=== PATIENT | male | born 1940 | race Caucasian/White ===

== ENCOUNTER → 2016-11-23 | Day surgery (SDC) | payer OTHER ==
[2016-11-12 09:30] VITALS: BMI 26.0
--- NOTE | 2016-11-12 10:08 | PAT Medication Instructions ---
Service Date Nov 12, 2016. Current Home Medication List Fexofenadine Hcl (Di), 180 MG PO DAILY PRN for Allergies Finasteride (Proscar), 5 MG PO QPM Tamsulosin Hcl (Flomax), 0.4 MG PO QPM Medication Instructions For Your Scheduled Surgery - Hold the following medications the morning of surgery: Fexofenadine Hcl (Di), 180 MG PO DAILY PRN for Allergies - Take the following medications as scheduled the night before surgery: Finasteride (Proscar), 5 MG PO QPM Tamsulosin Hcl (Flomax), 0.4 MG PO QPM Nothing to eat or drink after midnight If you have any questions please call us at [phone] or [phone] or [phone]
[~2016-11-23] VITALS: Ht 172.7 cm; Wt 79.8 kg
[~2016-11-23] MED LIST: ATROPINE SULFATE 0.1 MG/ML 5ML SYR IV PRN; BUPIVACAINE 0.5 % 5 MG/1 ML MPF 30ML VIAL ONE; CEFAZOLIN 2000 MG/60 ML D5W IV SCH; DEXAMETHASONE SOD INJ 4 MG/ML VIAL ONE; EpHEDrine SULFATE INJ 50 MG/ML AMP IV PRN; EpHEDrine SULFATE INJ 50 MG/ML AMP ONE; FENTANYL CITRATE INJ 50 MCG/1 ML 2 ML VIAL IV PRN; FENTANYL CITRATE INJ 50 MCG/1 ML 2 ML VIAL ONE; FEXO1TAB46 PO; FINA5TAB4 PO; GLYCOPYRROLATE INJ 0.2 MG/ML VIAL ONE; LACTATED RINGER'S 1000ML 1,000 ML IV SCH; LIDOCAINE HCL 1% 20 ML VIAL ONE; LIDOCAINE HCL 2% 2 ML VIAL (20MG/ML) ONE; MIDAZOLAM HCL 1 MG/ML 2ML VIAL ONE; MoRPHine SULFATE 4 MG/ML 1 ML CARP\\VIAL IV PRN; NEOSTIGMINE METHYLSULFATE 5 MG/5 ML SYR ONE; ONDANSETRON INJ 2 MG/ML 2 ML VIAL IV PRN; ONDANSETRON INJ 2 MG/ML 2 ML VIAL ONE; OXYCODONE/ACETAMINOPHEN 5-325 TAB PO PRN; PHENYLEPHRINE HCL INJ 10 MG/ML VIAL ONE; PROPOFOL IV EMULSION 10 MG/ML 20 ML VIAL IV ONE; ROCURONIUM BROMIDE 10 MG/ML 5 ML VIAL ONE; SODIUM CHLORIDE 0.9% 1000ML 1,000 ML IV SCH; SUCCINYLCHOLINE CHLORIDE 20 MG/ML 10 ML VIAL IV ONE; TAMS0.4C38 PO
[2016-11-23 09:27] VITALS: BP 132/78; PULSE 66; TEMP 36.5; O2SAT 96; Ht 172.7 cm; Wt 79.8 kg
--- NOTE | 2016-11-23 12:23 | History & Physical Bridge Note ---
H&P Re-Evaluation Bridge Note: I have examined the patient, reviewed the History & Physical and in the interval since the performance of the History & Physical I have noted the following changes of clinical significance: No changes noted
--- NOTE | 2016-11-23 13:49 | [facility] Post Operative Brief Note ---
Immediate Operative Summary Operative Date Nov 23, 2016. Pre-Operative Diagnosis Left Recurrent Inguinal Hernia Post-Operative Diagnosis Left Recurrent Inguinal Hernia Procedure(s) Performed Left Recurrent Inguinal Hernia Repair Surgeon Dr. Roger Hudson Instructional Design Technologist Surgeon(s) Karen Montelongo PA-C Estimated Blood Loss 5cc Findings See dictation Specimens none per surgeon Dr. Roger Hudson Drains None Anesthesia General Complication(s) None Disposition Recovery Room / PACU
--- NOTE | 2016-11-23 13:59 | Discharge Instructions ---
Discharge Instructions Admission Reason for Admission: Recurrent Left Inguinal Hernia Discharge Discharge Diagnosis / Problem: Same Discharge Goals Goal(s): Decrease discomfort Activity Recommendations Activity Limitations: per Instructions/Follow-up section Lifting Limitations: no more than 10 pounds Shower/Bathe: tomorrow (Shower only) . Instructions / Follow-Up Instructions / Follow-Up ACTIVITY RECOMMENDATIONS: * Walk as much as possible. * No heavy lifting (>10 lbs.) for 2 weeks. SPECIAL CARE INSTRUCTIONS: * Ice to hernia repair site on and off until bedtime tonight. * May shower in 24 hours. Let water run over area and pat dry. * Leave steri strips on for one week. * Call the surgeon's office with any questions or concerns - (ex. temperature higher than 101 degrees F, excessive bleeding or pain). MEDICATIONS: Resume previous medications unless instructed otherwise by your surgeon. * Ibuprofen 600 mg every 6 hours with food * Percocet 1 every 4 hours, as needed for pain FOLLOW UP VISIT: If not already scheduled, please call the office to schedule a two week follow- up appointment. Office number Current Hospital Diet Patient's current hospital diet: Discharge Diet Recommended Diet: Regular Diet Procedures Procedures Performed: Left Recurrent Inguinal Hernia Repair Pending Studies Studies pending at discharge: no Medical Emergencies . Who to Call and When: Medical Emergencies: If at any time you feel your situation is an emergency, please call 911 immediately. . Non-Emergent Contact Non-Emergency issues call your: Primary Care Provider, Surgeon Call Non-Emergent contact if: your pain is worsening, wound has increased redness, wound has increased pain . "Provider Documentation" section prepared by Roger Hudson. VTE Core Measure Inpt VTE Proph given/why not?: Treatment not indicated
[2016-11-23 14:45] VITALS: BP 158/76; PULSE 61; TEMP 36.6; O2SAT 92
--- NOTE | 2016-11-23 15:01 | Anesthesiology Progress Note ---
Anesthesia Post Op Note Date & Time Nov 23, 2016 at 15:02 Vital Signs Pain Intensity: 0 Vital Signs Past 12 Hours Date Time Temp Pulse Resp B/P Pulse Ox O2 Delivery O2 Flow Rate FiO2 11/23/16 14:45 36.6 61 18 158/76 92 Room Air 11/23/16 14:35 36.3 64 18 148/89 94 Room Air 10 11/23/16 14:30 64 16 11/23/16 14:30 63 16 94 11/23/16 14:28 146/91 11/23/16 14:25 67 18 11/23/16 14:25 69 18 93 11/23/16 14:24 62 12 11/23/16 14:24 63 12 96 11/23/16 14:23 150/86 11/23/16 14:19 57 12 99 11/23/16 14:19 56 12 11/23/16 14:18 148/86 11/23/16 14:14 60 14 11/23/16 14:14 59 14 98 11/23/16 14:13 141/89 11/23/16 14:09 65 13 11/23/16 14:09 64 13 100 11/23/16 14:08 140/89 11/23/16 14:04 70 18 11/23/16 14:04 69 18 99 11/23/16 14:04 36.0 75 13 119/92 99 Mask 10 11/23/16 09:27 36.5 66 18 132/78 96 Room Air Notes Mental Status: alert / awake / arousable, participated in evaluation Pt Amnestic to Procedure: Yes Nausea / Vomiting: adequately controlled Pain: adequately controlled Airway Patency, RR, SpO2: stable & adequate BP & HR: stable & adequate Hydration State: stable & adequate Anesthetic Complications: no major complications apparent
[2016-11-23 15:15] VITALS: BP 143/79; PULSE 62; TEMP 36.6; O2SAT 96
[2016-11-23 15:30] VITALS: BP 147/75; PULSE 63; TEMP 36.2; O2SAT 95
--- NOTE | 2016-11-24 01:04 | OPERATIVE REPORT ---
DATE OF OPERATION: 11/23/2016 PREOPERATIVE DIAGNOSIS: Recurrent left inguinal hernia. POSTOPERATIVE DIAGNOSIS: Recurrent left direct inguinal hernia. PROCEDURE: Repair of recurrent left direct inguinal hernia with mesh. SURGEON: Dr. Hudson. MICROGRAPHICS SERVICES SUPERVISOR: Sonia Montelongo PA-C. FINDINGS: The patient had had a previous inguinal hernia repair on 2 occasions on the left. There was not a lot of scar tissue in the canal, however. There was some adherence of the subcutaneous fat to the anterior surface of the external oblique fascia. The hernia was a direct hernia. There was a lipoma of the cord that was removed, but there was no indirect component. The direct hernia involved the entire floor of the canal. TECHNIQUE: The patient was given a general anesthetic, and the area was prepped and draped in the usual sterile fashion. Incision was made through the scar from the previous inguinal hernia incision. It was carried down through the subcutaneous tissue. Dissection was performed carefully until the external oblique fascia could be identified. A small incision was made in the external oblique, the underlying structures were off its undersurface and was opened through the external ring. The cord structures were seen draped over the anterior surface of the hernia sac. The cord structures were then dissected away from the hernia sac and away from the floor of the canal at the pubic tubercle level up to the internal ring and just inside the internal ring. It was at that point that the lipoma of the cord was identified. The lipoma of the cord was away from the cord structures up to just inside the internal ring and it was clamped, amputated and ligated with a 3-0 Vicryl tie. The hernia sac was then away from the os of the canal until it was completely freed. It was placed back into its anatomic position in the floor of the canal and was sewn over to oversew the floor. That created a new internal ring that admitted the tip of my finger. A pre-formed inguinal hernia mesh was then placed in the floor of the canal and sewn to the anterior surface of the internal oblique medially, the tissue over the pubic bone inferiorly, and the shelving border of the inguinal ligament laterally. The legs of the mesh were approximated to each other to create a new internal ring. The cord structures were placed back into their anatomic position as was the ilioinguinal nerve that had been isolated previously. The external oblique was closed over it using a running 2-0 Vicryl. The deep subcutaneous tissue was closed with a running 2-0 Vicryl, the superficial subcutaneous tissue was closed with running 3-0 Vicryl, and the skin was closed with 4-0 Monocryl in a running subcuticular fashion. The skin was anesthetized with 0.5% Marcaine. The skin was cleansed, dried, benzoin placed, Steri-Strips applied. The estimated blood loss was less than 5 mL. Sponge, needle and instrument counts were correct prior to closure. The patient tolerated surgical procedure without complication and was transferred to recovery. I attest to the content of the Intraoperative Record and any orders documented therein. Any exceptions are noted below. ALEXD
== END | disposition home or self-care (01) ==
LOC: C.ACU 08:55
PROVIDERS: ATTEND Surgery
DX: K40.91 Unilateral inguinal hernia, without obstruction or gangrene, recurrent (principal); D17.6 Benign lipomatous neoplasm of spermatic cord; N40.0 Benign prostatic hyperplasia without lower urinary tract symptoms; Z86.718 Personal history of other venous thrombosis and embolism; Z87.891 Personal history of nicotine dependence

== ENCOUNTER 2024-10-08 08:45 | Inpatient (IN) ==
--- OUTSIDE RECORDS SUMMARY | 2024-10-08 08:49 | External Medical Summary | Summary of Care ---
Author Name Unknown Organization [facility] Address [address] [place] [address] Phone [phone] Care Team Providers Care Brand Sales Consultant Name Role Phone Clarisse Luna DO Primary Care Provider [phone] Reason for Referral * Evaluate & Treat - Unlimited Visits (Within 10 days (routine)) - Authorized Specialty Diagnoses / Procedures Referred By Sai beauchamp Referred To Contact Urology Diagnoses BPH with obstruction/lower urinary tract symptoms Clarisse Luna DO [address] [place] [address] [place] [address] Referral ID Status Reason Start Date Expiration Date Visits Requested Visits Authorized [id number] Authorized Specialty Services Required 05/30/2024 999 999 Question Answer Referral Priority Within 10 days (routine) Where should this appointment be scheduled? [facility] What is the patient being referred for? Urinary Concerns Encounter Details Date Type Department Care Team (Late st Contact Info) Description 05/30/2024 3:30 PM EDT Nurse Only Ancillary [address] [place] [address] [place] Nurse [address] [place] [address] Allergies Active Allergy Reactions Criticality Noted Date Comments Amoxicillin-Pot Clavulanate Diarrhea 04/21/20 22 documented as of this encounter (statuses as of 05/30/2024) Medications Medication Sig Dispensed Refills Start Date End Date Status finasteride (PROSCAR) 5 MG Tablet Take 1 Tablet by mouth every evening. 03/22/2015 Active tamsulosin (FLOMAX) 0.4 MG Capsule Take 2 Caps by mouth daily. 60 Cap 5 07/05/2018 Active Loratadine 10 MG Oral Capsule Take 1 Capsule by mouth in the morning. 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 documented as of this encounter (statuses as of 05/30/2024) Immunizations Name Administration Dates Next Due COVID-19 mRNA, LNP-s, No Pre serve, 2-Dose Series (Moderna) 09/10/2021,11/04/2020,10/04/2020 Pneumococcal Conjugate Vacc, 13 Valent (Prevnar) 07/03/2016 Pneumococcal Polysaccharide PPV23 (Pneumovax) 08/11/2007 Season Influenza, Quad, PF, Adjuvanted, 65+ Yrs, IM (FLUAD) 07/16/2022,09/20/2020 Seasonal Influenza, PF, 6 M & above, IM , (FluLaval or Fluzone) 06/27/2018,07/09/2017 Seasonal Influenza, Quadriva lent Hd (Fluzone Hd) 08/10/2023,07/18/2021 Seasonal Influenza, Quadriva lent, No Preserve, IM 07/03/2016 Seasonal Influenza, Split, I IV3, With Preserve, Inj 07/10/2015,08/02/2014,07/20/2007 TD - Tetanus/Diptheria (ADULT) 08/11/2007 TDAP (age 10 and older)(Boostrix) 04/15/2018 documented as of this encounter Social History Tobacco Use Types Packs/Day Years Used Date Smoking Tobacco: Former Cigarettes 0.5 5 0 10/11/1964 - 10/11/1969 Smokeless Tobacco: Former Snuff Quit: 10/22/1991 Comments:quit 1966 Alcohol Use Standard Drinks/Week Comments No 0 (1 standard drink = 0.6 oz pur e alcohol) PHQ-2 Answer Date Recorded PHQ Adult Total Score 0 09/17/2023 Hunger Vital Sign Answer Date Recorded Within the past 12 months, y ou worried that your food would run out before you got the money to buy more. Never true 09/17/20 23 Within the past 12 months, t he food you bought just didn't last and you didn't have money to get more. Never true 09/17/2023 Childcare Answer Date Recorded Do you feel overwhelmed with taking care of a child, family member or friend? No 09/17/2023 Does your family need help f inding childcare? (Household - for ages 0-17 years) Not on file 09/17/2023 Clothing Answer Date Recorded Have you been unable to get clothing when it was really needed? No 09/17/2023 Is your family able to get c lothes or diapers when needed? (Household - for ages 0-17 years) Not on file 09/17/2023 Personal Safety Answer Date Recorded Do you feel unsafe or have concerns for your saf ety? No 09/17/2023 Do you have concerns for you r family's safety? (Household - for ages 0-17 years) Not on file 09/17/2023 Utilities Answer Date Recorded Do you have trouble paying y our heating, water, or electric bill? No 09/17/2023 Is your family able to pay t he heat, water, or electric bill? (Household - for ages 0-17 years) Not on file 09/17/2023 Does your family have access to good internet? (Household - for ages 0-17 years) Not on file 09/17/2023 Employment Status Answer Date Recorded Are you unemployed or without regular income? No 09/17/2023 Does the household have a re gular source of income? (Household - for ages 0-17 years) Not on file 09/17/2023 Social Connections Answer Date Recorded How often do you feel lonely or isolated from th ose around you? Never 09/17/2023 Financial Resource Strain Answer Date R ecorded Do you have any trouble payi ng for your medications, or do you think you might in the future? No 09/17/2023 Does your family have troubl e paying for medicine? (Household - for ages 0-17 years) Not on file 09/17/2023 Transportation Needs Answer Date Record ed READ ONLY Do you have troubl e getting a ride to medical visits or work? Never True 09/17/2023 Does your family have a hard time getting a ride to doctors visits? (Household - for ages 0-17 years) Not on file 09/17/2023 Has lack of transportation k ept you from medical appointments, meetings, work, or from getting things needed for daily living? Check all that apply. (Adult - for ages 18 years and over) Not on file 09/17/2023 Do you (or your family) have trouble finding or paying for a ride (transportation)? (Household - for ages 0-17 years) Not on file 09/17/2023 Housing Stability Answer Date Recorded Do you currently live in a s helter or have no steady place to sleep at night? No 09/17/2023 READ ONLY Do you think you a re at risk of becoming homeless? No 09/17/2023 Does your family worry about paying for your home or becoming homeless? (Household - for ages 0-17 years) Not on file 1 11/18/2022 Are you homeless or worried that you might be in the future? (Adult - for ages 18 years and over) Not on file Are you (or your family) rebeca eless or worried that you might be in the future? (Household - for ages 0-17 years) Not on file Food Insecurity Answer Date Recorded Do you need food for this week? No 09/17/2023 Are you able to get enough f ood for your family? (Household - for ages 0-17 years) Not on file 09/17/2023 Does your family need food t his week? (Household - for ages 0-17 years) Not on file 09/17/2023 Do you always have enough fo od for your family? (Household - for ages 0-17 years) Not on file 09/17/2023 Sex and Gender Information Value Date Recorded Sex Assigned at Male 09/12/2021 9:21 AM EST Gender Identity Male 09/12/2021 9:21 AM EST Sexual Orientation Straight 09/15/2022 10 :24 AM EST Job Start Date Occupation Industry Not on file Not on file Not on file documented as of this encounter Progress Notes * Alona Post LPN - 05/30/2024 4:01 PM EDT Pt here for post void residual and urine dip per orders by Dr. Luna. Component Ref Range & Units 00:00 Color, Urine Yellow or Light Yellow Yellow Clarity, Urine Clear Clear Glucose, Urine Negative mg/dL Negative Bilirubin, Urine Negative Negative Ketone, Urine Negative mg/dL Negative Specific [place], Urine 1.003 - 1.030 1.010 Blood, Urine Negative Negative pH, Urine 5.0 - 7.5 units 5.5 Protein, Urine Negative mg/dL Negative Urobilinogen, Urine 0.2 - 1.0 mg/dL 0.2 Nitrite, Urine Negative Negative Esterase, Urine Negative Negative Component Ref Range & Units 00:00 Post Void Residual (PVR) - Urine mL 52 Dr. Luna is aware of these results, and offered a urology referral. Pt was agreeable, referral placed. documented in this encounter Plan of Treatment Upcoming Encounters Date Type Department Care Team (Late st Contact Info) Description 09/19/2024 10:00 AM EST Nurse Only Ancillary [address] [place] [address] [place], Nurse [address] [place] [address] 01/01/2025 11:00 AM EDT Office Visit Urology, [facility] [address] [facility] [place] [address] Manolo Jones MD [address] [place] [address] 05/04/2025 9:30 AM EDT Office Visit [facility] [address] [phone] Clarisse Luna [address] [place] [address] Scheduled Procedures Name Priority Associated Diagnoses Date/Ti me COLONOSCOPY FLEXIBLE PROXIMAL DIAGNOSTIC Recall History of colon polyps Scheduled Referrals Name Type Priority Associated Diagnoses Orde r Schedule ADULT/PEDS UROLOGY REFERRAL OP Referral Within 10 days (routine) BPH with obstruction/lower urinary tract symptoms Ordered: 05/30/2024 Health Maintenance Due Date Last Done Comments Zoster Vaccines (1 of 2) 1991 COVID-19 Vaccine ( season) 2023 09/10/2021, 11/04/2020, 10/04/2020 Influenza Vaccine (FLU shot) (#1) 2024 08/10/2023, 08/10/2023, 07/16/2022, Additional history exists Adult Wellness Visit 09/17/2024 09/17/2023, 09/15/2022, 09/12/2021 Depression Screening 09/17/2024 09/17/2023 HbA1c 05/02/2025 05/02/2024, 04/10, 04/24/2022, Additional history exists DTaP,Tdap,and Td Vaccines (2 - Td or Tdap) 04/15/2028 04/15/2018, 08/11/2007 Pneumococcal Vaccine: 65+ Years Completed 09/14/2023, 07/03/2016, 08/11/2007 HPV (Gardasil) Vaccine Aged Out No lo nger eligible based on patient's age to complete this topic Hepatitis B Vaccine Aged Out No longe r eligible based on patient's age to complete this topic MENINGOCOCCAL (MENACTRA/MENVEO) Aged Out No longer eligible based on patient's age to complete this topic documented as of this encounter Medical Devices Not on filedocumented as of this encounter Visit Diagnoses Diagnosis BPH with obstruction/lower urinary tract symptoms- Primary Hypertrophy of prostate with urinary obstruction and other lower urinary tract symptoms (LUTS) documented in this encounter Care Teams Brand Sales Consultant Relationship Specialty Start Date End Date Clarisse Luna DO [address] [place] [address] [place] [address] PCP - General Internal Medicine 06/04/17 documented as of this encounter
--- OUTSIDE RECORDS SUMMARY | 2024-10-08 08:49 | External Medical Summary | Summary of Care ---
Author Name Unknown Organization [facility] Address [address] [place] [address] Phone [phone] Care Team Providers Care Swiss Type Screw Machine Operator Name Role Phone Clarisse Luna DO Primary Care Provider [phone] Reason for Visit * Reason Onset Date Comments Test Results 09/19/[address] Luna [place] labs Encounter Details Date Type Department Care Team (Late st Contact Info) Description 09/19/2024 Telephone Family Medicine [address] [place] [address] Clarisse Luna DO [address] [place] [address] [place] [address] Test Results (Review with Dr. Luna [place] labs/) Allergies Active Allergy Reactions Criticality Noted Date Comments Amoxicillin-Pot Clavulanate Diarrhea 04/21/20 22 documented as of this encounter (statuses as of 09/22/2024) Medications finasteride (PROSCAR) 5 MG Tablet Take 1 Tablet by mouth every evening. 03/22/2015 Active tamsulosin (FLOMAX) 0.4 MG Capsule Take 2 Caps by mouth daily. 60 Cap 5 07/05/2018 Active Loratadine 10 MG Oral Capsule Take 1 Capsule by mouth in the morning. 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 documented as of this encounter (statuses as of 09/22/2024) Resolved Problems Problem Noted Date Diagnosed Date Resolved Date Injury, unspecified, subsequent encounter 04/24/2022 04/27/2023 Homocysteinemia 05/13/2015 04/15/2018 DVT (deep venous thrombosis) 03/21/2015 06/01/2017 LUMB-LUMBOSAC DISC DEGEN 08/03/200303/2018 Sciatica 08/03/2003 04/23/2015 Unilateral inguinal hernia w ithout obstruction or gangrene 03/28/2003 04/15/2018 Overview (04/10/2003): prior repair [direct] by camilla 02-08; repaired 04-02-03. documented as of this encounter (statuses as of 09/22/2024) Immunizations Name Administration Dates Next Due COVID-19 mRNA, LNP-s, No Pre serve, 2-Dose Series (Moderna) 09/10/2021,11/04/2020,10/04/2020 Pneumococcal Conjugate Vacc, 13 Valent (Prevnar) 07/03/2016 Pneumococcal Polysaccharide PPV23 (Pneumovax) 08/11/2007 Season Influenza, Quad, PF, Adjuvanted, 65+ Yrs, IM (FLUAD) 07/16/2022,09/20/2020 Seasonal Influenza Vac., MDV , IM, 0.5 mL (Fluzone) 07/10/2015,08/02/2014,07/20/2007 Seasonal Influenza, PF, 6 M & above, IM , (FluLaval or Fluzone) 06/27/2018,07/09/2017 Seasonal Influenza, Quadriva lent Hd (Fluzone Hd) 08/10/2023,07/18/2021 Seasonal Influenza, Quadriva lent Hd, 65+ Yrs 08/04/2024 Seasonal Influenza, Quadriva lent, No Preserve, IM 07/03/2016 TD - Tetanus/Diptheria (ADULT) 08/11/2007 TDAP (age 10 and older)(Boostrix) 09/14/2023,03/2018 documented as of this encounter Social History Tobacco Use Types Packs/Day Years Used Date Smoking Tobacco: Former Cigarettes 0.5 2 0 10/11/1964 - 10/11/1966 Smokeless Tobacco: Former Snuff Quit: 10/22/1991 Comments:quit 1966 smoking a nd quit chewing at 51yo Alcohol Use Standard Drinks/Week Comments No 0 (1 standard drink = 0.6 oz pur e alcohol) PHQ-2 Answer Date Recorded PHQ Adult Total Score 0 09/19/2024 Hunger Vital Sign Answer Date Recorded Within the past 12 months, y ou worried that your food would run out before you got the money to buy more. Never true 09/19/20 24 Within the past 12 months, t he food you bought just didn't last and you didn't have money to get more. Never true 09/19/2024 Childcare Answer Date Recorded Do you feel overwhelmed with taking care of a child, family member or friend? No 09/19/2024 Does your family need help f inding childcare? (Household - for ages 0-17 years) Not on file 09/19/2024 Clothing Answer Date Recorded Have you been unable to get clothing when it was really needed? No 09/19/2024 Is your family able to get c lothes or diapers when needed? (Household - for ages 0-17 years) Not on file 09/19/2024 Personal Safety Answer Date Recorded Do you feel unsafe or have concerns for your saf ety? No 09/19/2024 Do you have concerns for you r family's safety? (Household - for ages 0-17 years) Not on file 09/19/2024 Utilities Answer Date Recorded Do you have trouble paying y our heating, water, or electric bill? No 09/19/2024 Is your family able to pay t he heat, water, or electric bill? (Household - for ages 0-17 years) Not on file 09/19/2024 Does your family have access to good internet? (Household - for ages 0-17 years) Not on file 09/19/2024 Employment Status Answer Date Recorded Are you unemployed or without regular income? No 09/19/2024 Does the household have a re gular source of income? (Household - for ages 0-17 years) Not on file 09/19/2024 Social Connections Answer Date Recorded How often do you feel lonely or isolated from th ose around you? Never 09/19/2024 Financial Resource Strain Answer Date R ecorded Do you have any trouble payi ng for your medications, or do you think you might in the future? No 09/19/2024 Does your family have troubl e paying for medicine? (Household - for ages 0-17 years) Not on file 09/19/2024 Transportation Needs Answer Date Record ed Do you have trouble getting a ride to medical visits or work? (Adult - for ages 18 years and over) Not on file 09/19/2024 Does your family have a hard time getting a ride to doctors visits? (Household - for ages 0-17 years) Not on file 09/19/2024 Has lack of transportation k ept you from medical appointments, meetings, work, or from getting things needed for daily living? Check all that apply. No 09/19/2024 Do you (or your family) have trouble finding or paying for a ride (transportation)? (Household - for ages 0-17 years) Not on file 09/19/2024 Housing Stability Answer Date Recorded Do you currently live in a s helter or have no steady place to sleep at night? No 09/19/2024 Do you think you are at risk of becoming homeless? (Adult - for ages 18 years and over) Not on file 09/19/2024 Does your family worry about paying for your home or becoming homeless? (Household - for ages 0-17 years) Not on file 1 11/20/2023 Are you homeless or worried that you might be in the future? No 09/19/2024 Are you (or your family) rebeca eless or worried that you might be in the future? (Household - for ages 0-17 years) Not on file Food Insecurity Answer Date Recorded Do you need food for this week? No 09/19/2024 Are you able to get enough f ood for your family? (Household - for ages 0-17 years) Not on file 09/19/2024 Does your family need food t his week? (Household - for ages 0-17 years) Not on file 09/19/2024 Do you always have enough fo od for your family? 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 No significant abnormalities. Will review in detail at his next appointment. * Telephone Encounter - Michelle Hunter RN - 09/19/2024 1:17 PM EST Patient seen for annual wellness visit today, he will follow up with Clarisse Luna DO in 03/2025. He did have recent labs done but not sure exactly what was abnormal. He is to go back next week to go over the results and "possible start meds" and get his new hearing aids, I tried to pull up labs done at the [place] on 09/12/24 under care everywhere. After review of me labs done at [place] on 09/12/24 here are some abnormal results. HEMOGLOBIN A1C PANEL HEMOGLOBIN A1C/HEMOGLOBIN.TOTAL IN BLOOD 6.2 LDL(CALCULATED) 125 mg/dL H <100 VLDL(CALCULATED) 23 mg/dL 5-40 CHOLESTEROL 223 mg/dL H <200 TRIGLYCERIDE(AX) 117 mg/dL <150 HDL(C) 74.3 mg/dL H 40.0-60.0 PLT 557 10*3/uL H 127-360 MPV 10.2 fL 9.2-12.0 RDW 15.6 H 11.9-14.9 Message sent to provider to make aware and advice. Reason for Call: No chief complaint on file. Contact: In Clinic Contact Type: Test Results Provider In-Basket: Yes Outcome: see note Face to face time spent with Patient (minutes): 10 Total Time including non face to face (minutes): 20 documented in this encounter Plan of Treatment Upcoming Encounters Date Type Department Care Team (Late st Contact Info) Description 01/01/2025 11:00 AM EDT Office Visit Urology, [facility] [address] [facility] [place] [address] Manolo Jones MD [address] [place] [address] 05/04/2025 9:30 AM EDT Office Visit Family Medicine [address] [place] [phone] [place] [address] 09/21/2025 9:00 AM EST Nurse Only Ancillary [address] [place] [address] [place], Nurse [address] [place] [address] Scheduled Procedures Name Priority Associated Diagnoses Date/Ti me COLONOSCOPY FLEXIBLE PROXIMAL DIAGNOSTIC Recall History of colon polyps Health Maintenance Due Date Last Done Comments Zoster Vaccines (1 of 2) 1991 COVID-19 Vaccine ( season) 2024 09/10/2021, 11/04/2020, 10/04/2020 HbA1c 05/02/2025 05/02/2024, 04/10, 04/24/2022, Additional history exists Adult Wellness Visit 09/19/2025 09/19/2024, 09/17/2023, 09/15/2022, Additional history exists Depression Screening 09/19/2025 09/19/2024 DTap/Tdap Vaccines (3 - Td or Tdap) 09/14/2033 09/14/2023, 04/15/2018, 08/11/2007 Pneumococcal Vaccine: 65+ Years Completed 09/14/2023, 07/03/2016, 08/11/2007 Influenza Vaccine (FLU shot) Completed , 08/10/2023, 08/10/2023, Additional history exists HPV (Gardasil) Vaccine Aged Out No lo nger eligible based on patient's age to complete this topic Hepatitis B Vaccine Aged Out No longe r eligible based on patient's age to complete this topic MENINGOCOCCAL (MENACTRA/MENVEO) Aged Out No longer eligible based on patient's age to complete this topic documented as of this encounter Medical Devices Not on filedocumented as of this encounter Care Teams Swiss Type Screw Machine Operator Relationship Specialty Start Date End Date Clarisse Luna DO [address] [place] [address] [place] [address] PCP - General Internal Medicine 06/04/17 documented as of this encounter
--- OUTSIDE RECORDS SUMMARY | 2024-10-08 08:49 | External Medical Summary | Summary of Care ---
Author Name Unknown Organization [facility] Address [address] [place] [facility] [place] [facility] [place] [address] Phone [phone] Care Team Providers Care Global Supply Chain Director Name Role Phone Clarisse Luna DO Primary Care Provider [phone] Reason for Visit * Reason Onset Date Comments Test Results 09/19/[address] Luna [place] labs Encounter Details Date Type Department Care Team (Late st Contact Info) Description 09/19/2024 Telephone Family Medicine [address] [place] [address] Clarisse Luna DO [address] [place] [address] [place] [address] Test Results (Review with Dr. Luna [place] labs/) Allergies Active Allergy Reactions Criticality Noted Date Comments Amoxicillin-Pot Clavulanate Diarrhea 04/21/20 22 documented as of this encounter (statuses as of 09/26/2024) Medications finasteride (PROSCAR) 5 MG Tablet Take 1 Tablet by mouth every evening. 03/22/2015 Active tamsulosin (FLOMAX) 0.4 MG Capsule Take 2 Caps by mouth daily. 60 Cap 5 07/05/2018 Active Loratadine 10 MG Oral Capsule Take 1 Capsule by mouth in the morning. 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 documented as of this encounter (statuses as of 09/26/2024) Resolved Problems Problem Noted Date Diagnosed Date Resolved Date Injury, unspecified, subsequent encounter 04/24/2022 04/27/2023 Homocysteinemia 05/13/2015 04/15/2018 DVT (deep venous thrombosis) 03/21/2015 06/01/2017 LUMB-LUMBOSAC DISC DEGEN 08/03/200303/2018 Sciatica 08/03/2003 04/23/2015 Unilateral inguinal hernia w ithout obstruction or gangrene 03/28/2003 04/15/2018 Overview (04/10/2003): prior repair [direct] by camilla 02-08; repaired 04-02-03. 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 * Telephone Encounter - Michelle Hunter RN - 09/25/2024 4:11 PM EST I called and spoke to Patient and , Barbara states he is seeing a Information Technology Manager this week, for hiselevated platelets. PLT 557 10*3/uL H 127-360 MPV 10.2 fL 9.2-12.0 RDW 15.6 H 11.9-14.9 She is to keep us updated and if they have any questions or concerns, they have my phone # to give them. Reason for Call: Test Results (Review with Dr. Luna [place] labs/) Contact: Telephone Call Contact Type: Test Results Provider In-Basket: Yes Outcome: see note Face to face time spent with Patient (minutes): 0 Total Time including non face to face (minutes): 10 * Telephone Encounter - Clarisse Luna DO [...] to pull up labs done at the [place] on 09/12/24 under care everywhere. After review of [place] labs done at [place] on 09/12/24 here are some abnormal results. [...] 01/01/2025 11:00 AM EDT Office Visit Urology, [facility] [address] [facility] [place] [address] Manolo Jones MD [address] [place] [address] 05/04/2025 9:30 AM EDT Office Visit Family Medicine [address] [place] [phone] Clarisse Luna DO [address] [place] [address] [place] [address] 09/21/2025 9:00 AM EST Nurse Only Ancillary [address] [place] [address] [place], Nurse Annual [address] [place] [address] Scheduled Procedures Name Priority Associated Diagnoses Date/Ti [...] filedocumented as of this encounter Care Teams Global Supply Chain Director Relationship Specialty Start Date End Date Clarisse Luna DO [address] [place] [address] [place] [address] PCP - General Internal Medicine 06/04/17 documented as of this encounter
--- OUTSIDE RECORDS SUMMARY | 2024-10-08 08:49 | External Medical Summary | Summary of Care ---
Author Name Unknown Organization [facility] Address [address] [place] [address] Phone [phone] Care Team Providers Care Car Seat Upholsterer Name Role Phone Clarisse Luna DO Primary Care Provider [phone] Reason for Visit * Reason Onset Date Comments Advice 05/29/2024 Encounter Details Date Type Department Care Team (Late st Contact Info) Description 05/29/2024 Telephone Family Medicine [address] [phone] Clarisse Luna DO [address] [place] [address] [place] [address] Advice Allergies Active Allergy Reactions Criticality Noted Date [...] s 05/13/2015 Pneumoconiosis Overview: Worked in the [employer] for 26 years. documented as of this [...] encounter Miscellaneous Notes * Telephone Encounter - Alona Post LPN - 05/30/2024 2:39 PM EDT I called pt/pt's - pt states he is only able to urinate a little bit at a time, and quite oftenthrough the night. Pt states during the day it's not as bad, he feels when he is relaxed it gets worse. I spoke with Dr. Luna- pt is coming for a nurse visit for urine dip, and post void residual. (Ordered) * Telephone Encounter - Clarisse Luna DO - 05/29/2024 12:16 PM EDT He is already on finasteride and max dose flomax. Is he retaining urine, or what urinary problem is he having? * Telephone Encounter - Anthony Tesfaye OSA - 05/29/2024 10:55 AM EDT Pt Barbara is calling because Pt takes prostate medication but is having a hard time urinating and wants to know if they can maybe get an increase in the medication or what solution there might be, please call to advise [phone] documented in this encounter Plan of Treatment Upcoming Encounters Date Type Department Care Team (Late st Contact Info) Description 05/30/2024 3:30 PM EDT Nurse Only Ancillary [address] [place] [address] [place] [place] [address] 09/19/2024 10:00 AM EST Nurse Only Ancillary [address] [place] [address] [place], Nurse [address] [place] [address] 05/04/2025 9:30 AM EDT Office Visit Family Medicine [address] [place] [phone] Clarisse Luna, [address] [place] [address] Scheduled Orders Name Type Priority Associated Diagnoses Orde r Schedule POST VOID RESIDUAL BLADDER US (NURSE ONLY) Procedures Routine BPH with obstruction/lower urinary tract symptoms Ordered: 05/30/2024 URINALYSIS, POINT OF CARE (ENTER/EDIT) Point of Care Testing Routine Nocturia BPH with obstruction/lower urinary tract symptoms Ordered: 05/30/2024 Scheduled Procedures Name Priority Associated Diagnoses Date/Ti [...] as of this encounter Visit Diagnoses Diagnosis Nocturia- Primary BPH with obstruction/lower urinary tract symptoms Hypertrophy of prostate with urinary obstruction and other lower urinary tract symptoms (LUTS) documented in this encounter Care Teams Car Seat Upholsterer Relationship Specialty Start Date End Date Clarisse Luna DO [address] [place] [address] [place] [address] PCP - General Internal Medicine 06/04/17 documented as of this encounter
--- OUTSIDE RECORDS SUMMARY | 2024-10-08 08:49 | External Medical Summary | Summary of Care ---
Author Name Unknown Organization [facility] Address [address] [place] [facility] [place] [address] Phone [phone] Care Team Providers Care Equipment Maint Tech Name Role Phone Clarisse Luna DO Primary Care Provider [phone] Reason for Visit * Reason Onset Date Comments Test Results 09/19/[address] Luna [place] labs Encounter Details Date Type Department Care Team (Late st Contact Info) Description 09/19/2024 Telephone Family Medicine [address] [place] [address] Clarisse Luna DO [address] [place] [address] [place] [address] Test Results (Review with Dr. Luna [place] labs/) Allergies Active Allergy Reactions Criticality Noted Date Comments Amoxicillin-Pot Clavulanate Diarrhea 04/21/20 22 documented as of this encounter (statuses as of 09/25/2024) Medications finasteride (PROSCAR) 5 MG Tablet Take 1 Tablet by mouth every evening. 03/22/2015 Active tamsulosin (FLOMAX) 0.4 MG Capsule Take 2 Caps by mouth daily. 60 Cap 5 07/05/2018 Active Loratadine 10 MG Oral Capsule Take 1 Capsule by mouth in the morning. 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 After review of md labs done at [place] on 09/12/24 here are some abnormal results. [...] 01/01/2025 11:00 AM EDT Office Visit Urology, [facility] [address] [facility] [place] [address] Manolo Jones MD [address] [place] [address] 05/04/2025 9:30 AM EDT Office Visit Family Medicine [address] [place] [phone] [address] [place] [address] 09/21/2025 9:00 AM EST Nurse Only Ancillary [address] [place] [address] [place], Nurse [address] [place] [address] Scheduled Procedures Name Priority Associated Diagnoses Date/Ti [...] filedocumented as of this encounter Care Teams Equipment Maint Tech Relationship Specialty Start Date End Date Clarisse Luna DO [address] [place] [address] [place] [address] PCP - General Internal Medicine 06/04/17 documented as of this encounter
--- OUTSIDE RECORDS SUMMARY | 2024-10-08 08:49 | External Medical Summary | Summary of Care ---
Author Name Unknown Organization [facility] Address [address] [place] [facility] [place] [address] Phone [phone] Care Team Providers Care Dispatch Manager Name Role Phone Clarisse Luna DO Primary Care Provider [phone] Reason for Visit * Reason Onset Date Comments Test Results 09/19/[address] Luna [place] labs Encounter Details Date Type Department Care Team (Late st Contact Info) Description 09/19/2024 Telephone Family Medicine [address] [place] [phone] Clarisse Luna DO [address] [place] [address] [place] [address] Test Results (Review with Dr. 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 PLT 557 10*3/uL H 127-360 MPV 10.2 fL 9.2-12.0 RDW 15.6 H 11.9-14.9 She is to keep us updated and if they have any questions or concerns, they have my phone # to give them. Reason for Call: Test Results (Review with Dr. Luna [place] labs/) Contact: Telephone Call Contact Type: Test [...] to pull up labs done at the [place] on 09/12/24 under care everywhere. After review of [place] labs done at [place] on 09/12/24 here are some abnormal results. [...] 01/01/2025 11:00 AM EDT Office Visit Urology, [facility] [address] [facility] [place] [address] Manolo Jones MD [address] [place] [address] 05/04/2025 9:30 AM EDT Office Visit Family Medicine [address] [place] [phone] Clarisse Luna DO [address] [place] [address] [place] [address] 09/21/2025 9:00 AM EST Nurse Only Ancillary Nilda Valenzuela[address] [place] [address] [place] Nurse Annual [address] [place] [address] Scheduled Procedures Name Priority Associated Diagnoses Date/Ti me COLONOSCOPY FLEXIBLE PROXIMAL DIAGNOSTIC Recall History of colon polyps Health Maintenance Due Date Last Done Comments Zoster Vaccines (1 of 2) 1991 COVID-19 Vaccine (2023- season) 2024 09/10/2021, 11/04/2020, 10/04/2020 HbA1c 05/02/2025 [...] filedocumented as of this encounter Care Teams Dispatch Manager Relationship Specialty Start Date End Date Clarisse Luna DO [address] [place] [address] [place] [address] PCP - General Internal Medicine 06/04/17 documented as of this encounter
--- OUTSIDE RECORDS SUMMARY | 2024-10-08 08:49 | External Medical Summary | Summary of Care ---
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 Name Role Phone Clarisse Luna Mae Primary Care Provider Reason for Visit * Reason Comments Adult Annual Wellness Visit, Subsequent Visit Encounter Details Date Type Department Care Team (Late st Contact Info) Description 09/19/2024 10:00 AM EST Nurse Only Ancillary [address] [place] [id number] [facility], Nurse [address] [place] [id number] Adult Annual Wellness Visit, Subsequent Visit Allergies Active Allergy Reactions Criticality Noted Date Comments Amoxicillin-Pot Clavulanate Diarrhea 04/21/20 22 documented as of this encounter (statuses as of 09/19/2024) Medications finasteride (PROSCAR) 5 MG Tablet Take 1 Tablet by mouth every evening. 03/22/2015 Active tamsulosin (FLOMAX) 0.4 MG Capsule Take 2 Caps by mouth daily. 60 Cap 5 07/05/2018 Active Loratadine 10 MG Oral Capsule Take 1 Capsule by mouth in the morning. 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 documented as of this encounter (statuses as of 09/19/2024) Resolved Problems Problem Noted Date Diagnosed Date Resolved Date Injury, unspecified, subsequent encounter 04/24/2022 04/27/2023 Homocysteinemia 05/13/2015 04/15/2018 DVT (deep venous thrombosis) 03/21/2015 06/01/2017 LUMB-LUMBOSAC DISC DEGEN 08/03/200303/2018 Sciatica 08/03/2003 04/23/2015 Unilateral inguinal hernia w ithout obstruction or gangrene 03/28/2003 04/15/2018 Overview (04/10/2003): prior repair [direct] by camilla 02-08; repaired 04-02-03. documented as of this encounter (statuses as of 09/19/2024) Immunizations Name Administration Dates Next Due COVID-19 [...] 10/11/1966 Smokeless Tobacco: Former Snuff Quit: 10/22/1991 Tobacco Cessation:Counseling Given: Not Answered Comments:quit 1966 smoking and quit chewing at 51yo Alcohol Use Standard [...] Start Date Job End Date [employer] textile cutting machine operator - retired Not on file Not o n file Not on file documented as of this encounter Last Filed Vital Signs Vital Sign Reading Time Taken Comments Blood Pressure 122/70 09/19/2024 10:06 AM EST Pulse 70 09/19/2024 10:06 AM EST Temperature 35.7 C (96.2 F) 09/19/2024 10:[address] Respiratory Rate - - Oxygen Saturation 94% 09/19/2024 10:06 AM EST Inhaled Oxygen Concentration - - Weight 78.6 kg (173 lb 3.2 oz) 09/19/2024 10:06 AM EST Height 174.6 cm (5' 8.75") 09/19/2024 10:[address] Body Mass Index 25.76 09/19/2024 10:06 AM EST documented in this encounter Patient Instructions * Patient Instructions* Michelle Hunter RN - 09/19/2024 10:04 AM EST Patient Instructions - Fall Prevention (This education is for all patients over 65 regardless of symptoms) Remember to take your current medications as prescribed. In order to prevent falls, you are encouraged to: Exercise Utilize assistive/adaptive devices Avoid multifocal lenses when walking Avoid hazards in home Maintain a regular toileting schedule Any questions please contact our office. Preventing Falls in the Home (This education is for all patients over 65 regardless of symptoms) As you get older, falls are more likely. Thats because your reaction time slows. Your muscles and joints may also get stiffer, making them less flexible. Illness, medications, and vision changes can also affect your balance. A fall could leave you unable to live on your own. To make your home safer, follow these tips: Floors Put nonskid pads under area rugs Remove throw rugs Replace worn floor coverings Tack carpets firmly to each step on carpeted stairs. Put nonskid strips on the edges of uncarpeted stairs Keep floors and stairs free of clutter and cords Arrange furniture so there are clear pathways Clean up any spills right away Bathrooms Install grab bars in the tub or shower Apply nonskid strips or put a nonskid rubber mat in the tub or shower Sit on a bath chair to bathe Use bathmats with nonskid backing Lighting Keep a flashlight in each room Put a nightlight along the pathway between the bedroom and the bathroom [employer] Patient Education Copyright 2008 - 2010 [employer] except where otherwise noted Preventing Falls: Exercises to Improve Balance, Flexibility, Strength, and Staying Power (This education is for all patients over 65 regardless of symptoms) Certain types of exercises may help make you less likely to fall. Try the ones below. Or do other exercises that your healthcare provider suggests. Depending on your health, you may need to start slowly. Dont let that stop you. Even small amounts of exercise can help you. Be sure to talk to yourhealthcare provider before starting any exercise program. Improve Balance Many types of exercise can help improve balance. Fabien chi and yoga are good examples. Heres another one to try. You can do it anytime and almost anywhere. Stand next to a counter or solid support. Push yourself up onto your tiptoes. Hold for 5 seconds. If you start to lose your balance, hold on to the counter. Rest and repeat 5 times. Work up to holding for 20 to 30 seconds, if you can. Increase Flexibility Being more flexible makes it easier for you to move around safely. Try exercises like the seated hamstring stretch. Sit in a chair and put one foot on a stool. Straighten your leg and reach with both hands down either side of your leg. Reach as far down your leg as you can. Hold for about 20 seconds. Go back to the starting position. Then repeat 5 times. Switch legs. Build Strength Resistance exercises help build strength. You can do them without equipment. Or you can use weights, elastic bands, or special machines. One such exercise is called the biceps curl. You can hold a 1 pound weight or even a can of soup. Do this exercise at least 3 times a week. Strive for everyday. Sit up straight in a chair. Keep your elbow close to your body and your wrist straight. Bend your arm, moving your hand up to your shoulder. Then slowly lower your arm. Repeat 5 times. Switch to the other arm. Build Your Staying Power Aerobic exercises make your heart and lungs stronger so you can keep moving longer. Walking and swimming are two of the best types of exercises you can do. Using a stationary bike is great, too. Find an aerobic exercise that you enjoy. Start slowly and build up. Even 5 minutes is helpful. Aimfor a goal of 30 minutes, at least 3 times a week. You dont have to do 30 minutes in one session. Break it up and walk a little throughout the day. More Helpful Tips Start easy. Slowly work up to doing more. Talk with your healthcare provider about the best exercises for you. Call senior centers or health clubs about exercise programs. If needed, have a family member watch you walk every so often to check your stability. Exercise with a friend. Choose an activity you both enjoy. Try exercises that you can do anytime, anywhere. Here are two examples. Have someone with you when you first try these: Practice walking by placing one foot right in front of the other. Stand up and sit down 10 times. Repeat this throughout the day. [employer] Patient Education Copyright 2008 - 2010 [employer] except where otherwise noted. Preventing Falls: Moving Safely Using a Cane or Walker (This education is for all patients over 65 regardless of symptoms) Keep the cane away from your feet so you dont trip. A walking aid, such as a cane or walker, can help you stay more independent and avoid falls. Remember to keep your walking aid within easy reach when youre in a chair or in bed. And learn how to use it safely so you dont injure yourself. Using a Cane If you have a stronger side, hold the cane on that side. Get your balance. Move the cane and your weaker leg forward. Support your weight on both the cane and your weaker side. Step with your stronger leg. Start again from step 1. If youre using a folding walker, be sure you know how to lock it open. Check that its locked open before each use. Using a Walker Roll the walker (or lift it, if youre using one without wheels) forward about 12 inches. Step forward with your weaker leg first. Use the walker to help keep your balance. Bring your other foot forward to the center of the walker. Start again from step 1. Helpful Tips Check with your healthcare provider about the right walking aid to use. Ask about a walker with a seat attached. Check the tips of your cane or walker to make sure they have nonskid covers. Move slowly from room to room. Dont aguilar. Sit down to get dressed. Use a breonna pack or backpack to keep your hands free. Get help for jobs that mean climbing, even on a stepstool. [employer] Patient Education Copyright 2008 - 2010 [employer] except where otherwise noted. Treating Urinary Incontinence in Men (This education is for all patients over 65 regardless of symptoms) You can't always control the release of urine. You may leak urine. Or you may not be able to hold your urine until you can get to a bathroom. This is called urinary incontinence. The problem can be managed. Talk to your doctor about your treatment options. Taking Medications Prescription medications may help you. They may: Help the sphincter to work better. (This is the muscle that closes to keep urine from leaking out of the bladder.) Help stop the bladder from sowmya too often to push urine out. Help the bladder muscles contract with more force. Help relax the sphincter muscle and allow urine to flow more freely. Making Changes to Your Routine Certain changes in your daily routine may help. These include: Avoiding caffeine and alcohol. Using timed voiding. This is following a schedule for drinking fluids and urinating. Doing Kegel exercises daily. These exercises involve tightening the muscles in your sphincter and around your bladder to help strengthen them. Your doctor can explain how to do them. Using a Catheter A catheter is a narrow tube that is inserted through the urethra into the bladder. It drains urine.A condom catheter covers the penis. It channels urine into a collection bag. It is worn most of thetime. Intermittent catheterization means inserting a catheter to drain the bladder, then removing it. This is done on a regular schedule. Having Surgery If other options don't work, surgery may be recommended. If surgery is an option, your healthcare provider can discuss it with you and explain its risks and benefits. Healing After Prostate Surgery Surgery on the prostate gland can cause incontinence. Most often, the incontinence is only for a short time. It clears up when healing is complete. Very rarely, prostate surgery can result in permanent incontinence. Panda Johns, As your primary care physician, I know that regular visits with my patients who have several chronic conditions can go a long way in helping you stay healthy. Many times, the clinic team and I are in touch with you and/or other care team members between office visits to adjust medications, discuss any changes in your health, and review our care plan to make sure it is still meeting your needs. I am dedicated to helping you take a more active role in your overall care. It is important that there are resources available to you, so I created a personalized plan of care with a Health Calendar for you, which is included on the next page of this letter. Below is a list that summarizes your electronic health record: Health Maintenance Due: Health Maintenance Due Topic Date Due Zoster Vaccines (1 of 2) Never done COVID-19 Vaccine ( season) 2024 Current Medication List: (as of Visit date not found (in office), Visit date not found (telemedicine) ) Current Outpatient Medications Medication Sig Dispense Refill finasteride (PROSCAR) 5 MG Tablet Take 1 Tablet by mouth every evening. tamsulosin (FLOMAX) 0.4 MG Capsule Take 2 Caps by mouth daily. 60 Cap 5 Loratadine 10 MG Oral Capsule Take 1 Capsule by mouth in the morning. No current facility-administered medications for this visit. Current List of Allergies: (as of Visit date not found (in office), Visit date not found (telemedicine) ) Review of patient's allergies indicates: Allergen Reactions Augmentin [Amoxicillin-Pot Clavulanate] Diarrhea Most Recent Lab Results: Results for orders placed or performed in visit on 05/29/24 POST VOID RESIDUAL BLADDER US (NURSE ONLY) Result Value Ref Range Post Void Residual (PVR) - Urine 52 mL URINALYSIS, POINT OF CARE (ENTER/EDIT) Result Value Ref Range Color, Urine Yellow Yellow or Light Yellow Clarity, Urine Clear Clear Glucose, Urine Negative Negative mg/dL Bilirubin, Urine Negative Negative Ketone, Urine Negative Negative mg/dL Specific [place], Urine 1.010 1.003 - 1.030 Blood, Urine Negative Negative pH, Urine 5.5 5.0 - 7.5 units Protein, Urine Negative Negative mg/dL Urobilinogen, Urine 0.2 0.2 - 1.0 mg/dL Nitrite, Urine Negative Negative Esterase, Urine Negative Negative Sincerely, Clarisse Luna DO 09/19/2024 [facility] Calendar (as of Visit date not found (in office), Visit date not found (telemedicine) ) Care needs Care needs Last completed Due next Zoster (Shingles) Vaccine (1 of 2) --- Never done COVID-19 Vaccine ( season) 2021 06/11/2024 A1C blood sugar test 05/02/2024 05/02/2025 Adult Wellness Visit 09/19/2024 09/19/2025 Diphtheria, tetanus & pertussis vaccines (3 - Td or Tdap) 09/14/2023 09/14/2033 As you look over the recommended services, be sure to check with your insurance company to determine what's covered. [employer] is a great tool that helps you review your medical record online, including test results, doctor notes and your health summary. You can also schedule appointments with me and other members of your care team, request prescription refills and ask for advice related to your medical conditions at [employer]. documented in this encounter Progress Notes * Michelle Hunter RN - 09/19/2024 10:12 AM EST AD8 Dementia Screening Interview Person answering questions: patient Remember, "Yes, a change" indicates that there has been a change in the last several years caused by cognitive (thinking and memory) problems 1. Problems with judgement (eg: problems making decisions, bad financial decisions, problems with thinking). No (0) 2. Less interest in hobbies/activities. No (0) 3. Repeats the same things over and over (questions, stories, or statements). No (0) 4. Trouble learning how to use a tool, appliance, or gadget (eg: VCR, computer, microwave, remote control). No (0) 5. Forgets correct month or year. No (0) 6. Trouble handling complicated financial affairs (eg: balancing checkbook, income taxes, paying bills). N/A 7. Trouble remembering appointments. No (0) 8. Daily problems with thinking and/or memory. Yes (1) TOTAL AD8: 1 - AD8 Dementia Screening Score The final score is a sum of the number items marked "Yes, A Change". 0 - 1: Normal cognition; 2 or greater: Cognitive impairments is likely to be present - further testing required Adult Annual Wellness Visit: Elías Johns Sr. is a 83 year old male who presents for an Adult Annual Wellness Visit. Depression Screening: Did the patient complete the screening questionnaire for Depression? Yes Is the patient's total score for Depression 15 or greater? No, no further intervention needed, unless requested by patient. Did the patient answer positively to the suicide question? No, no further intervention needed, unless requested by patient. In general, compared to other people your age, what would you say that your health is? Very Good Ht Readings from Last 1 Encounters: 09/19/24 5' 8.75" (1.746 m) Wt Readings from Last 1 Encounters: 09/19/24 173 lb 3.2 oz (78.6 kg) Body Mass Index: BMI Greater than 30 Body mass index is 25.76 kg/m. 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 Sciatica 08/03/2003 Unilateral inguinal hernia 1965 LIH repair Unilateral inguinal hernia 02/15/01 RIH repair Unilateral inguinal hernia without obstruction or gangrene 03/28/2003 prior repair [direct] by camilla 02-08; repaired 04-02-03. Past Surgical History: Procedure Laterality Date CATARACT SURGERY,COMPLEX COLONOSCOPY, DIAGNOSTIC (RECTUM) 07/06/2018 adenomatous polyps, diverticulosis, fair prep, repeat 3 yrs/COLONOSCOPY FLEXIBLE PROXIMAL DIAGNOSTIC performed by Hailey Cohen MD at [facility] LAMINA, [address] Varner REPAIR INITIAL INGUINAL HERNIA REDUCIBLE AGE 5 OR MORE Inguinal Hernia Repair,5+Y/O,Reducibl REPAIR RECURRENT INGUINAL HERNIA 04/02/2003 recurrent RIH repair by RES at [facility] REPAIR RECURRENT INGUINAL HERNIA Left REPAIR RECURRENT INGUINAL HERNIA Left 11/23/2016 11/23/2016 left recurrent direct inguinal hernia with mesh - [facility] Dr. Roger Hudson REPAIR RECURRENT INGUINAL HERNIA Left 11/23/2016 Dr. Hudson- [facility] Family History Problem Relation Name Age of Onset Other (none) Brother Has patient ever had cancer? No Social History Tobacco Use Smoking status: Former Current packs/day: 0.00 Average packs/day: 0.5 packs/day for 2.0 years (1.0 ttl pk-yrs) Types: Cigarettes Start date: 10/11/1964 Quit date: 10/11/1966 Years since quittin.9 Smokeless tobacco: Former Types: Snuff Quit date: 10/22/1991 Tobacco comments: quit 1967 smoking and quit chewing at 51yo Substance Use Topics Alcohol use: No Vaping/E-Cigarette Use Vaping/E-Cigarette Use Never User Vaping/E-Cigarette Substances Vaping/E-Cigarette Devices Tobacco/Alcohol screening completed today? Yes Hospital Care: Admissions (within the last year): Not Applicable ER within 30 days: No Does the patient have an Advance Directives/Living Will? Yes Last Physical Exam: Last physical exam: 04/2024 Does patient see primary provider regularly? Yes Does patient see other providers? Yes, Specialist Patient Care Team updated? Yes Review of patient's allergies indicates: Allergen Reactions Augmentin [Amoxicillin-Pot Clavulanate] Diarrhea Immunization History Administered Date(s) Administered COVID-19 mRNA, LNP-s, No Preserve, 2-Dose Series (Moderna) 10/04/2020, 11/04/2020, 09/10/2021 Pneumococcal Conjugate Vacc, 13 Valent (Prevnar) 07/03/2016 Pneumococcal Polysaccharide PPV23 (Pneumovax) 08/11/2007 Season Influenza, Quad, PF, Adjuvanted, 65+ Yrs, IM (FLUAD) 09/20/2020, 07/16/2022 Seasonal Influenza Vac., MDV, IM, 0.5 mL (Fluzone) 09/15/2001, 08/03/2003, 07/20/2007, 08/02/2014, 07/10/2015 Seasonal Influenza, PF, 6 M & above, IM , (FluLaval or Fluzone) 07/09/2017, 06/27/2018 Seasonal Influenza, Quadrivalent Hd (Fluzone Hd) 07/18/2021, 08/10/2023 Seasonal Influenza, Quadrivalent Hd, 65+ Yrs 08/04/2024 Seasonal Influenza, Quadrivalent, No Preserve, IM 07/03/2016 TD - Tetanus/Diptheria (ADULT) 08/11/2007 TDAP (age 10 and older)(Boostrix) 04/15/2018, 09/14/2023 Current Outpatient Medications Medication Sig Dispense Refill finasteride (PROSCAR) 5 MG Tablet Take 1 Tablet by mouth every evening. tamsulosin (FLOMAX) 0.4 MG Capsule Take 2 Caps by mouth daily. 60 Cap 5 Loratadine 10 MG Oral Capsule Take 1 Capsule by mouth in the morning. No current facility-administered medications for this visit. 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 Yes Patient takes medications as prescribed? Yes Patient manages own medications: Yes Patient uses a pill box? Yes, refill(s) completed by self Dental Exam: encouraged every 6mth Eye Screening: Yes: Every 6mths, [facility] Are you having trouble with hearing? Yes Do you use an assistive device to help your hearing? Yes, Bilateral Exercise Screening: daily exercise, walking , weight lifting daily Nutrition Assessment: coffee for breakfast, snack lunch and supper. Pain Screening: Are you having any pain? No Sleep Screening Tool 'STOP': Do you snore? Yes Do you feel fatigued during the day? No Do you wake up feeling like you haven't slept? No Have you been told you stop breathing at night? No Do you gasp for air or choke while sleeping? No Have you been told you have Sleep Apnea? No Do you have high blood pressure or are on medication(s) to control high blood pressure? No Patient declined ralph referral Patient and Caregiver Support System: Patient lives with a spouse and with children, son Nathan Means of Transportation: Drives. Not a concern. Patient lives in One Story - with basement stairs: 12 with raAmideBios Community Resources: Not Applicable Functional Status and ADL Skills: Has patient ever had an amputation? No Functional Assessment: 100- Normal, no complaints, no evidence of disease Ambulation: Patient ambulates with assistive device. Walking stick when outside Dressing: Gets clothes and dresses without any assistance: Independent Able to move freely in chair or bed including turning over: Independent Repositioning (bed or chair): Not applicable Transfers: Independent Toileting: Goes to bathroom, uses toilet, arranges clothes and returns without any assistance: Independent Toileting: continent of bladder and continent of bowel Feeding: Self Bathing: Self; tub and shower with grab bars Requires none assistance with ADLs. Instrumental ADL's: Shopping: Minimal Assistance Housekeeping: Minimal Assistance Handling Finances: Moderate Assistance DME Vendor Name: Not Applicable Fall Risk Assessment: Can the patient demonstrate that he can stand from a sitting position? Yes Has the patient had a fall within the last 6 months? No Does the patient have a problem with his gait or balance? No Does the patient take 4 or more prescription medicines? No Does the patient use sedatives or narcotics? No Fall Risk Factors Present: Visually impaired Older than age 70 Sqi-Oi-wme-Go Test: Time began at 1000. Patient stood from sitting position and walked approximately 10 feet, returned and sat down. Total time for ezx-fg-mhm-go test was 9 seconds. Bez-Ax-dxo-Go Test completed? Yes Gender Specific Preventative Plan: Health Maintenance Topic Date Due Zoster Vaccines (1 of 2) Never done COVID-19 Vaccine ( season) 2024 HbA1c 05/02/2025 Depression Screening 09/19/2025 Adult Wellness Visit 09/19/2025 DTap/Tdap Vaccines (3 - Td or Tdap) 09/14/2033 Influenza Vaccine (FLU shot) Completed Pneumococcal Vaccine: 65+ Years Completed Hepatitis B Vaccine Aged Out MENINGOCOCCAL (MENACTRA/MENVEO) Aged Out HPV (Gardasil) Vaccine Aged Out Follow Up/ Referrals/Handouts: Depression screening - completed Functional assessment - doing well, goes to the [facility] and Falls Risk screening - discussed Exercise screening - encouraged to stay active Nutrition assessment -. Education Provided and Handouts Provided Pain screening - discussed Incontinence screening - no concerns today Patient has been verbally educated on the need or importance of Cholesterol, GFR, Glucose, Hemoglobin A1c, Potassium, COVID, Flu Vaccine, and Shingles Vaccine We did discuss his [facility] labs, patient states something was abnormal and he needs to follow up with a specialist. I will see if I can get labs and have PCP look at them. He thought maybe his sugar or cholesterol was elevated, but not sure. After review of [facility] labs done at [facility] on 09/12/24 HEMOGLOBIN A1C PANEL HEMOGLOBIN A1C/HEMOGLOBIN.TOTAL IN BLOOD 6.2 LDL(CALCULATED) 125 mg/dL H <100 VLDL(CALCULATED) 23 mg/dL 5-40 CHOLESTEROL 223 mg/dL H <200 TRIGLYCERIDE(AX) 117 mg/dL <150 HDL(C) 74.3 mg/dL H 40.0-60.0 Pt has completed the covid vaccines: No Flu completed Routine general medical examination at a health care facility (Primary) Risk and functional assessment Advanced care planning/counseling discussion Patient will have his upload a copy or drop one off. BPH with obstruction/lower urinary tract symptoms - Med reconciliation completed and compliance discussed. - pt to continue present medications. Patient does follow up with Dr. Jones Prediabetes Hemoglobin AIC Results: Lab Results Component Value Date/Time HEMOGLOBIN A1C - [facility] 6.0 (H) 05/02/2024 11:09 AM HEMOGLOBIN A1C - [facility] 6.0 (H) 04/27/2023 11:15 AM HEMOGLOBIN A1C - [facility] 5.9 (H) 04/24/2022 10:35 AM HEMOGLOBIN A1C - [facility] 5.6 04/20/2017 08:27 AM HEMOGLOBIN A1C - [facility] 5.5 10/26/2016 11:00 AM Patient did have A1C done at [facility] on 09/12/24 and it was 6.2 Patient is going back to the [facility] to discuss labs and get his hearing aids. I will message pcp with results Follow Up: Return in 1 year (on 09/19/2025) for 12 month Subsequent Adult Wellness Visit. | For: 12month Subsequent Adult Wellness Visit | Check-out note: 12 month Subsequent Adult Wellness Visit Would patient like to schedule next AWV visit? Yes Michelle Hunter RN documented in this encounter Miscellaneous Notes * Pt Handout (on AVS) - Michelle Hunter RN - 09/19/2024 10:51 AM EST Images from the original note were not included. 76240 Understanding Carbohydrates Just like a car needs the right type of fuel to run, you need the right kind of food to function. To keep your energy level up, your body needs food that has carbohydrates (carbs). But carbs raise blood sugar levels higher and faster than other kinds of food. Your dietitian will work with you to figure out the amount of carbs you need. Carbs come in 3 types: starches, sugars, and fiber. Starches Starches are found in grains, some vegetables, and beans. Grain products include bread, pasta, cereal, and tortillas. Starchy vegetables include potatoes, peas, corn, weldon beans, yams, and squash. Kidney beans, sylvester beans, black beans, garbanzo beans, and lentils also have starches. Sugars Sugars are found naturally in many foods. Or they can be added. Foods that contain natural sugar include fruits and fruit juices, dairy products, honey, and molasses. Added sugars are found in most desserts, processed foods, candy, regular soda, and fruit drinks. These are very helpful to treat lowblood sugar (hypoglycemia). They give you sugar quickly. Try to keep at least 15 to 20 grams of these simple sugars with you at all times. Eat or drink these if you start to have symptoms of low blood sugar. Fiber Fiber comes from plant foods. Your body can't digest most fiber. Instead of raising blood sugar levels like other carbs, fiber stops blood sugar from rising too quickly. Fiber is found in fruits, vegetables, whole grains, beans, peas, and many nuts. Understanding how to count your carbs Keep track of the amount of carbs you eat. This can help you keep the right balance of carbs, physical activity, and medicine. The amount of carbs you need will be different from what other people need. How much you need depends on many things. These include your health, the medicines you take, andhow active you are. Your healthcare team will help you figure out the right amount of carbs for you. You may start with 45 to 60 grams of carbs per meal, depending on your case. Carb counting is a system that helps you keep track of the carbohydrates you eat at each meal. Carbs come from many foods. These include grains, starchy vegetables, fruit, milk, beans, and snackfoods. You can either count carbohydrate grams or carbohydrate servings. When you count carbohydrate servings, 1 carbohydrate serving = 15 grams of carbohydrates. Here are some examples of foods that have about 15 grams of carbs (1 serving of carbohydrates): 1/2 cup of canned or frozen fruit A small piece of fresh fruit (4 ounces) 1 slice of bread 1/2 cup of oatmeal 1/3 cup of rice 4 to 6 crackers 1/2 Danish muffin 1/2 cup of black beans 1/4 of a large baked potato (3 ounces) 2/3 cup of plain fat-free yogurt 1 cup of soup 1/2 cup of casserole 6 chicken nuggets [id number] brownie or cake without frosting 2 small cookies 1/2 cup of ice cream or sherbet Carb counting is easier when food labels are available. Look at the label to see how many grams of total carbs per serving the food contains. Then you can figure out how much you should eat. If your food doesn't have a nutrition label, you should be able to get an idea of how many carbs there are per serving by using a book or website. Two very important lines to look at on the label are the serving size and the total carbohydrate amount per serving. Here are some tips for using food labels to count your carbs: Check the serving size. The information on the label is based on that serving size. If you eat more than the listed serving size, you may have to double or triple the other information on the label. Check the total grams of carbs. Total carbohydrate from the label includes sugar, starch, and fiber. Be sure to use the total carbohydrate number (minus the fiber) and not sugar alone. Know how many grams of carbs you can have. Be familiar with the matching portion sizes. Compare labels. Compare the labels of different products. Look at serving sizes and total carbs to find the products that work best for you. Don't forget protein and fat. With the focus on carb counting, it might be easy to forget protein and fat in your meals. Don't forget to include sources of protein and healthy fat to balance your meals. Also watch how much salt (sodium) you eat. This is especially true if you have high blood pressure. If you have diabetes, limit the amount of sodium to less than 2,300 mg a day. It?s also important to be consistent with the amount of carbs and time you eat when taking a fixed dose of diabetes medicine. Work with your healthcare provider or dietitian if you need more help. They can help you keep track of your carbs. They can also help you figure out how many grams of carbs you should have. Last Reviewed Date: 2023 00:00:00 [id number] [employer]. All rights reserved. This information is not intended as a substitute for professional medical care. Always follow your healthcare professional's instructions. * Pt Handout (on AVS) - Michelle Hunter RN - 09/19/2024 10:50 AM EST Images from the original note were not included. 64365 Dehydration The human body is comprised largely of water. If you lose more fluids than you take in, you can become dehydrated. This means there is not enough fluid in your body for it to function right. Mild dehydration can cause thirst, fatigue, weakness, confusion, and muscle cramps. In severe cases, it can lead to kidney damage, brain damage, and even . That's why getting treatment right away is crucial. Risk factors Anyone can become dehydrated. But babies, children, and older adults are at the greatest risk. Older adults who must stay in one place are at especially high risk. They are unable to get up to get something to drink. It can be a bigger problem if they can't communicate. You are most likely to lose fluids with severe vomiting, diarrhea, or a fever. Exercising or working hard?especially in hot weather?can also cause extra fluid loss. Using certain medicines such as water pills (diuretics) that make you pee more can also raise your risk. The risk can be higher in thehot summer months. What to do Drinking liquids is the best way to prevent dehydration. Water is best. But juice or frozen pops can also help. For adults, don't drink liquids that contain caffeine or alcohol to rehydrate. These drinks will cause you to pee more. This raises your risk for more fluid loss. Your healthcare providermay suggest drinking electrolyte solutions. These put back electrolytes that may be lost along withthe fluid. When to go to the emergency room (ER) Go to an ER right away for these symptoms: Adults Very dark urine and little or no urine output Dizziness, weakness, confusion, or fainting Children Sunken eyes For babies, sunken soft spot (fontanelle) on the head Little or no urine output. For babies, no wet diaper in 8 hours. Very dark urine Skin that doesn't bounce back quickly when pinched Crying without tears Lethargy, decreased activity, or increased sleepiness What to expect in the ER Your blood pressure, temperature, and heart rate will be checked. You may have blood or urine testsdone. The main treatment for dehydration is fluids. You may be given these to drink. Or you may getthem through a vein in your arm. You also may be treated for diarrhea, vomiting, or a high fever. Last Reviewed Date: 2022 00:00:00 [id number] [employer]. All rights reserved. This information is not intended as a substitute for professional medical care. Always follow your healthcare professional's instructions. * Pt Handout (on AVS) - Michelle Hunter RN - 09/19/2024 10:50 AM EST A1C A1C Does this test have other names? Hemoglobin A1c; HbA1c; glycosylated hemoglobin; glycohemoglobin; Glycated hemoglobin What is this test? A1C is a blood test that shows average blood sugar (glucose) levels over the last 3 months. The test is done to find out if a person has diabetes or prediabetes. It's also used to see how well a person with diabetes controls their blood sugar. The test can help guide diabetes treatment over time. Why do I need this test? You may need this test to check for prediabetes or diabetes. If you have diabetes or prediabetes, you may need this test to see how well you control your blood sugar. People with diabetes need to track their blood sugar (glucose) levels every day to make sure they aren?t too high or too low. The A1C test gives results for a longer period of time. It shows ifyour blood sugar has been too high on average over the last 3 months. Glucose sticks to hemoglobin in the blood. Hemoglobin is a protein in red blood cells that carries oxygen. When blood sugar is high, more glucose builds up and sticks to the hemoglobin. The A1C test measures how much of the hemoglobin is coated with sugar. You may have the test when a healthcare provider first works with you to treat your diabetes. You may then need to have the A1C test 2 or more times a year. This depends on the type of diabetes you have and how well it?s controlled. The [place] [employer] (ADA) advises an A1C test at least 2 times a year if you are meeting your blood sugar goals. If you aren?t meeting your goals or your medicine has changed, you should have the A1C test more often. What other tests might I have along with this test? If your healthcare provider tests you for diabetes, you may also have any of these tests: Fasting plasma glucose blood test (FPG) Oral glucose tolerance test (OGTT) Urine test to check for sugar, ketones, or protein What do my test results mean? Test results may vary depending on your age, gender, health history, the method used for the test, and other things. Your test results may not mean you have a problem. Ask your healthcare provider what your test results mean for you. A1C results are reported as a percentage. Here are what the results mean: A1C below 5.7%. This is normal. A1C from 5.7% to 6.4%. You may have prediabetes. This means you have a higher risk for diabetes in the future. A1C of 6.5% or above on 2 separate tests. You may have diabetes. The ADA says that people with diabetes should keep an A1C below 7%. The [place] [employer] advises an A1C of 6.5% or less. Your healthcare provider may give you other advice. This is based on your age, health conditions, and other things. How is this test done? The test is done with a blood sample. A needle is used to draw blood from a vein in your arm or hand. Does this test pose any risks? Having a blood test with a needle carries some risks. These include bleeding, infection, bruising, and feeling lightheaded. When the needle pricks your arm or hand, you may feel a slight sting or pain. Afterward, the site may be sore. What might affect my test results? Your blood sugar levels change throughout the day. This won't affect the A1C test result. If you have sickle cell anemia or other blood disorders, an A1C test may be less useful for diagnosing or watching diabetes. Your healthcare provider may tell you to use a different test that will work better for you. The test results may be less accurate if you have any of the below: Anemia Heavy bleeding Iron deficiency Kidney failure Liver disease How do I get ready for this test? You don't need to get ready for the test. Last Reviewed Date: 2021 00:00:00 [id number] [employer]. All rights reserved. This information is not intended as a substitute for professional medical care. Always follow your healthcare professional's instructions. * Pt Handout (on AVS) - Michelle Hunter RN - 09/19/2024 10:50 AM EST Images from the original note were not included. [id number] 5 Steps for Eating Healthier Changing the way you eat can improve your health. It can lower your cholesterol and blood pressure,and help you stay at a healthy weight. Your diet doesn?t have to be bland and boring to be healthy.Just watch your calories and follow these steps: Step 1. Eat fewer unhealthy fats Choose more fish and lean meats instead of fatty cuts of meat. Skip butter and lard, and use less margarine. Replace these with healthier fats, such as olive, canola, or avocado oils. Pass on foods that have palm, coconut, or partially hydrogenated oils. Eat fewer high-fat dairy foods like cheese, ice cream, and whole milk. Get a heart-healthy cookbook and try some new recipes. Step 2. Go light on salt Keep the saltshaker off the table. Limit high-salt ingredients, such as soy sauce, bouillon, and garlic salt. Instead of adding salt when cooking, season your food with herbs, spices, and other flavorings. Try lemon, garlic, onion, vinegar, or salt-free herb seasonings. Limit convenience foods, such as boxed or canned foods and restaurant food. Read food labels and choose lower-sodium options. Buy fresh, frozen, or canned vegetables that don't have added salt. Step 3. Limit sugar Pause before you add sugars to pancakes, cereal, coffee, or tea. This includes white and brown table sugar, syrup, honey, and molasses. Cut your usual amount by half. Swap out sugar-filled soda and other drinks. Buy sugar-free or low-calorie beverages. Remember, water is always the best choice. Try adding lemon juice to water for extra flavor. Read labels and choose foods with less added sugar. Keep in mind that dairy foods and foods withfruit will have some natural sugar. Cut the sugar in recipes by 1/3 to 1/2. Boost the flavor with extracts like almond, vanilla, or orange. Or add spices such as cinnamon or nutmeg. Step 4. Eat more fiber Eat fresh fruits and vegetables every day. Boost your diet with whole grains. Go for oats, whole-grain rice, and bran. Add beans and lentils to your meals. Drink more water to match your fiber increase to help prevent constipation. Step 5. Pay attention to serving sizes Remember that a serving size is a standard measurement. It will let you track the amount of fat,calories, and other nutrients in the food you eat. Read the Nutrition Facts label on packaged foods to learn their serving sizes. Use serving sizes to assess how much food you put on your plate. Pay attention to your portions.How many servings are you eating? Keep in mind that your needs may change if you?re more active or less active, or if you have other factors that change your calorie needs. Use your hand to help you measure serving sizes. For example: o 1 teaspoon: This is about the size of the first joint of your thumb. o 1 tablespoon: This is about the size of the first 2 joints of your thumb. o 1 ounce: This is about what you can fit in your cupped hand. o 2 to 3 ounces: This is about the size of the palm of your hand. o cup: This is also about what you can fit in your cupped hand. o 1 cup: This is about the size of your fist. Last Reviewed Date: 2022 00:00:00 [id number] [employer]. All rights reserved. This information is not intended as a substitute for professional medical care. Always follow your healthcare professional's instructions. * Pt Handout (on AVS) - Michelle Hunter RN - 09/19/2024 10:49 AM EST Images from the original note were not included. [id number] 5 Steps for Eating Healthier Changing the way you eat can improve your health. It can lower your cholesterol and blood pressure,and help you stay at a healthy weight. Your diet doesn?t have to be bland and boring to be healthy.Just watch your calories and follow these steps: Step 1. Eat fewer unhealthy fats Choose more fish and lean meats instead of fatty cuts of meat. Skip butter and lard, and use less margarine. Replace these with healthier fats, such as olive, canola, or avocado oils. Pass on foods that have palm, coconut, or partially hydrogenated oils. Eat fewer high-fat dairy foods like cheese, ice cream, and whole milk. Get a heart-healthy cookbook and try some new recipes. Step 2. Go light on salt Keep the saltshaker off the table. Limit high-salt ingredients, such as soy sauce, bouillon, and garlic salt. Instead of adding salt when cooking, season your food with herbs, spices, and other flavorings. Try lemon, garlic, onion, vinegar, or salt-free herb seasonings. Limit convenience foods, such as boxed or canned foods and restaurant food. Read food labels and choose lower-sodium options. Buy fresh, frozen, or canned vegetables that don't have added salt. Step 3. Limit sugar Pause before you add sugars to pancakes, cereal, coffee, or tea. This includes white and brown table sugar, syrup, honey, and molasses. Cut your usual amount by half. Swap out sugar-filled soda and other drinks. Buy sugar-free or low-calorie beverages. Remember, water is always the best choice. Try adding lemon juice to water for extra flavor. Read labels and choose foods with less added sugar. Keep in mind that dairy foods and foods withfruit will have some natural sugar. Cut the sugar in recipes by 1/3 to 1/2. Boost the flavor with extracts like almond, vanilla, or orange. Or add spices such as cinnamon or nutmeg. Step 4. Eat more fiber Eat fresh fruits and vegetables every day. Boost your diet with whole grains. Go for oats, whole-grain rice, and bran. Add beans and lentils to your meals. Drink more water to match your fiber increase to help prevent constipation. Step 5. Pay attention to serving sizes Remember that a serving size is a standard measurement. It will let you track the amount of fat,calories, and other nutrients in the food you eat. Read the Nutrition Facts label on packaged foods to learn their serving sizes. Use serving sizes to assess how much food you put on your plate. Pay attention to your portions.How many servings are you eating? Keep in mind that your needs may change if you?re more active or less active, or if you have other factors that change your calorie needs. Use your hand to help you measure serving sizes. For example: o 1 teaspoon: This is about the size of the first joint of your thumb. o 1 tablespoon: This is about the size of the first 2 joints of your thumb. o 1 ounce: This is about what you can fit in your cupped hand. o 2 to 3 ounces: This is about the size of the palm of your hand. o cup: This is also about what you can fit in your cupped hand. o 1 cup: This is about the size of your fist. Last Reviewed Date: 2022 00:00:00 [id number] [employer]. All rights reserved. This information is not intended as a substitute for professional medical care. Always follow your healthcare professional's instructions. * Pt Handout (on AVS) - Michelle Hunter RN - 09/19/2024 10:49 AM EST A1C A1C Does this test have other names? Hemoglobin A1c; HbA1c; glycosylated hemoglobin; glycohemoglobin; Glycated hemoglobin What is this test? A1C is a blood test that shows average blood sugar (glucose) levels over the last 3 months. The test is done to find out if a person has diabetes or prediabetes. It's also used to see how well a person with diabetes controls their blood sugar. The test can help guide diabetes treatment over time. Why do I need this test? You may need this test to check for prediabetes or diabetes. If you have diabetes or prediabetes, you may need this test to see how well you control your blood sugar. People with diabetes need to track their blood sugar (glucose) levels every day to make sure they aren?t too high or too low. The A1C test gives results for a longer period of time. It shows ifyour blood sugar has been too high on average over the last 3 months. Glucose sticks to hemoglobin in the blood. Hemoglobin is a protein in red blood cells that carries oxygen. When blood sugar is high, more glucose builds up and sticks to the hemoglobin. The A1C test measures how much of the hemoglobin is coated with sugar. You may have the test when a healthcare provider first works with you to treat your diabetes. You may then need to have the A1C test 2 or more times a year. This depends on the type of diabetes you have and how well it?s controlled. The [place] [employer] (ADA) advises an A1C test at least 2 times a year if you are meeting your blood sugar goals. If you aren?t meeting your goals or your medicine has changed, you should have the A1C test more often. What other tests might I have along with this test? If your healthcare provider tests you for diabetes, you may also have any of these tests: Fasting plasma glucose blood test (FPG) Oral glucose tolerance test (OGTT) Urine test to check for sugar, ketones, or protein What do my test results mean? Test results may vary depending on your age, gender, health history, the method used for the test, and other things. Your test results may not mean you have a problem. Ask your healthcare provider what your test results mean for you. A1C results are reported as a percentage. Here are what the results mean: A1C below 5.7%. This is normal. A1C from 5.7% to 6.4%. You may have prediabetes. This means you have a higher risk for diabetes in the future. A1C of 6.5% or above on 2 separate tests. You may have diabetes. The ADA says that people with diabetes should keep an A1C below 7%. The [place] [employer] advises an A1C of 6.5% or less. Your healthcare provider may give you other advice. This is based on your age, health conditions, and other things. How is this test done? The test is done with a blood sample. A needle is used to draw blood from a vein in your arm or hand. Does this test pose any risks? Having a blood test with a needle carries some risks. These include bleeding, infection, bruising, and feeling lightheaded. When the needle pricks your arm or hand, you may feel a slight sting or pain. Afterward, the site may be sore. What might affect my test results? Your blood sugar levels change throughout the day. This won't affect the A1C test result. If you have sickle cell anemia or other blood disorders, an A1C test may be less useful for diagnosing or watching diabetes. Your healthcare provider may tell you to use a different test that will work better for you. The test results may be less accurate if you have any of the below: Anemia Heavy bleeding Iron deficiency Kidney failure Liver disease How do I get ready for this test? You don't need to get ready for the test. Last Reviewed Date: 2021 00:00:00 [id number] [employer]. All rights reserved. This information is not intended as a substitute for professional medical care. Always follow your healthcare professional's instructions. * ACP (Advance Care Planning) - Michelle Hunter RN - 09/19/2024 10:32 AM EST Images from the original note were not included. Patient-centered Communication 09/19/2024 The patient/surrogate voluntarily agreed to participate in advance care planning discussion. They were advised that this is a separate service which may incur out of pocket cost in the form of copayment and/or deductibles. Location: Clinic Individual(s) present for conversation: Patient Decisions Additional Comments Synopsis SmartLink Most Recent Value Past ~10 years 09/19/2024 13:15 Additional Comments Additional Comments: pt does have ACP and will have his upload a copy or drop off a copy. 09/19/2024 pt does have ACP and will have his upload a copy or drop off a copy. Discerning What Matters Most to the Patient: Synopsis SmartLink Most Recent Value Past ~10 years 09/17/2023 12:36 Discerning What Matters Most to the Patient In their own words, patient's UNDERSTANDING of their illness is: pt states he has no concers and feels health is very good compared to others his age. "im hardly on any meds" the 2 meds hes own has "controlled his bladder" 09/17/2023 pt states he has no concers and feels health is very good compared to others his age. "imhardly on any meds" the 2 meds hes own has "controlled his bladder" The patient thinks COMPLICATIONS in the future may be: More pain only if bladder meds don't work, pt had urinarty retention prior to meds 09/17/2023 More pain only if bladder meds don't work, pt had urinarty retention prior to meds The patient defines LIVING WELL as: Pt states he "wants to be independant and home, if I can't takecare of my myself , Im find not being here" 09/17/2023 Pt states he "wants to be independant and home, if I can't take care of my myself , Im find not being here" The patient's FEARS/WORRIES about illness are: Being a burden to family;[place] pt [place]" he also states he doesn't worry about it, all my trust is in God" 09/17/2023 Being a burden to family;[place] pt [place]" he also states he doesn't worry about it, all my trust is in God" The patient considers these as 'UNACCEPTABLE OUTCOMES': "Being a vegetable" (define below);Unable to feed themselves;Unable to talk/interact with loved ones 09/17/2023 "Being a vegetable" (define below);Unable to feed themselves;Unable to talk/interact withloved ones "Being a vegetable", patient defines as: "if I can't take care of myself, Im fine not here" 09/17/2023 "if I can't take care of myself, Im fine not here" The patient's cultural or spiritual BELIEFS that may affect health care decisions: pt is Buddhist, attend hindu at [facility] regularly. pt states "all my trust is in God, when it's my time , it's my time. 09/17/2023 pt is Buddhist, attend hindu at [facility] regularly. pt states "all my trust is in God, when it's my time , it's my time. Source: Content from [facility] [employer] Program Aligning Care With What Matters Most: Synopsis SmartLink Most Recent Value Past ~10 years 09/17/2023 12:34 Aligning Care With What Matters Most In their own words, the patient's understanding of their prognosis: pt states he has no concers andfeels health is very good compared to others his age. 09/17/2023 pt states he has no concers and feels health is very good compared to others his age. Rationale for Decisions Source: Content from [facility] Cho[facility] 5 minutes spent in direct [id number] discussion today, Michelle Hunter RN documented in this encounter Plan of Treatment Upcoming Encounters Date Type Department Care Team (Late st Contact Info) Description 01/01/2025 11:00 AM EDT Office Visit Urology, [address] [place] [address] Manolo Jones MD [address] [place] [address] 05/04/2025 9:30 AM EDT Office Visit Family Medicine [address] [place] [phone] [address] [place] [address] 09/21/2025 9:00 AM EST Nurse Only Ancillary [place] [place] [address] [place], Nurse Annual Wellness [address] [place] [address] [place] [address] Scheduled Procedures Name Priority Associated Diagnoses Date/Ti [...] as of this encounter Visit Diagnoses Diagnosis Routine general medical examination at a health care facility- Primary Risk and functional assessment Screening for unspecified condition Advanced care planning/counseling discussion Other specified counseling BPH with obstruction/lower urinary tract symptoms Hypertrophy of prostate with urinary obstruction and other lower urinary tract symptoms (LUTS) Prediabetes Other abnormal glucose documented in this encounter Care Teams Hide Measuring Machine Operator Relationship Specialty Start Date End Date Clarisse Luna DO [address] [place] [address] [place] [address] PCP - General Internal Medicine 06/04/17 documented as of this encounter
--- OUTSIDE RECORDS SUMMARY | 2024-10-08 08:49 | External Medical Summary | Summary of Care ---
Author Name Unknown Organization [facility] Address [address] [facility] [place] [address] Phone [phone] Care Team Providers Care Irrigation Tax Assessor Collector Name Role Phone Jeremy Clarisse Lopeze Primary Care Provider [phone] Reason for Visit * Reason Comments Outpatient Testing Encounter Details Date Type Department Care Team (Late st Contact Info) Description 05/02/2024 11:10 AM EDT Laboratory Laboratory [address] [place] [phone] [address] [place] [address] Prediabetes; supervisor intermediates current use of therapeutic drug Allergies Active Allergy Reactions Criticality Noted Date Comments Amoxicillin-Pot Clavulanate Diarrhea 04/21/20 22 documented as of this encounter (statuses as of 05/02/2024) Medications Medication Sig Dispensed Refills Start Date End Date Status finasteride (PROSCAR) 5 MG Tablet Take 1 Tablet by mouth every evening. 03/22/2015 Active tamsulosin (FLOMAX) 0.4 MG Capsule Take 2 Caps by mouth daily. 60 Cap 5 07/05/2018 Active Loratadine 10 MG Oral Capsule Take 1 Capsule by mouth in the morning. 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 documented as of this encounter (statuses as of 05/02/2024) Resolved Problems Problem Noted Date Diagnosed Date Resolved Date Injury, unspecified, subsequent encounter 04/24/2022 04/27/2023 Homocysteinemia 05/13/2015 04/15/2018 DVT (deep venous thrombosis) 03/21/2015 06/01/2017 LUMB-LUMBOSAC DISC DEGEN 08/03/200303/2018 Sciatica 08/03/2003 04/23/2015 Unilateral inguinal hernia w ithout obstruction or gangrene 03/28/2003 04/15/2018 Overview: prior repair [direct] by camilla 02-08; repaired 04-02-03. documented as of this encounter (statuses as of 05/02/2024) Immunizations Name Administration Dates Next Due COVID-19 [...] on file documented as of this encounter Plan of Treatment Upcoming Encounters Date Type Department Care Team (Late st Contact Info) Description 09/19/2024 10:00 AM EST Nurse Only Ancillary [address] [place] [address] [place], Nurse [address] [place] [address] Pending Results Name Type Priority Associated Diagnoses Date /Time HEMOGLOBIN A1C Lab Routine Prediabetes 05/02/2024 11:09 AM EDT CBC WITH WBC DIFFERENTIAL AND ANEMIA REFLEX WORKUP Lab Routine supervisor intermediates current use of therapeutic drug 05/02/2024 11:09 AM EDT COMPREHENSIVE METABOLIC PANEL Lab Routine nursing home current use of therapeutic drug 05/02/2024 11:09 AM EDT ANEMIA CBC Lab Routine supervisor intermediates current use of therapeutic drug 05/02/2024 11:09 AM EDT DIFFERENTIAL, AUTOMATED Lab Routine supervisor intermediates current use of therapeutic drug 05/02/2024 11:09 AM EDT ANEMIA REFLEX CHEMISTRY HOLD Lab Routine supervisor intermediates current use of therapeutic drug 05/02/2024 11:09 AM EDT Scheduled Procedures Name Priority Associated Diagnoses Date/Ti me COLONOSCOPY FLEXIBLE PROXIMAL DIAGNOSTIC Recall History of colon polyps Health Maintenance Due Date Last Done Comments Zoster Vaccines (1 of 2) 1991 COVID-19 Vaccine ( season) 2023 09/10/2021, 11/04/2020, 10/04/2020 HbA1c 04/27/2024 04/27/2023, 04/10, 09/10/2021, Additional history exists Influenza Vaccine (FLU shot) (#1) 2024 08/10/2023, 08/10/2023, 07/16/2022, Additional history exists Depression Screening 09/17/2024 09/17/2023 DTaP,Tdap,and Td Vaccines (2 - Td or [...] as of this encounter Visit Diagnoses Diagnosis Prediabetes Other abnormal glucose nursing home current use of therapeutic drug documented in this encounter Care Teams Irrigation Tax Assessor Collector Relationship Specialty Start Date End Date Clarisse Luna DO [address] [place] [address] [place] [address] PCP - General Internal Medicine 06/04/17 documented as of this encounter
--- OUTSIDE RECORDS SUMMARY | 2024-10-08 08:49 | External Medical Summary | Summary of Care ---
Author Name Unknown Organization [facility] Address [address] [facility] [place] [address] Phone [phone] Care Team Providers Care Clinical Trial Coordinator Name Role Phone Clarisse Luna Mae Primary Care Provider [phone] Reason for Visit * Reason Comments Adult Annual Wellness Visit, Subsequent Visit Encounter Details Date Type Department Care Team (Late st Contact Info) Description 09/19/2024 10:00 AM EST Nurse Only Ancillary [address] [place] [address] [facility], Nurse [address] [place] [address] Adult Annual Wellness Visit, Subsequent Visit Allergies Active Allergy Reactions Criticality Noted Date Comments Amoxicillin-Pot Clavulanate Diarrhea 04/21/20 22 documented as of this encounter (statuses as of 09/20/2024) Medications finasteride (PROSCAR) 5 MG Tablet Take 1 Tablet by mouth every evening. 03/22/2015 Active tamsulosin (FLOMAX) 0.4 MG Capsule Take 2 Caps by mouth daily. 60 Cap 5 07/05/2018 Active Loratadine 10 MG Oral Capsule Take 1 Capsule by mouth in the morning. 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 documented as of this encounter (statuses as of 09/20/2024) Resolved Problems Problem Noted Date Diagnosed Date Resolved Date Injury, unspecified, subsequent encounter 04/24/2022 04/27/2023 Homocysteinemia 05/13/2015 04/15/2018 DVT (deep venous thrombosis) 03/21/2015 06/01/2017 LUMB-LUMBOSAC DISC DEGEN 08/03/200303/2018 Sciatica 08/03/2003 04/23/2015 Unilateral inguinal hernia w ithout obstruction or gangrene 03/28/2003 04/15/2018 Overview (04/10/2003): prior repair [direct] by camilla 02-08; repaired 04-02-03. 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 Repeat this throughout the day. [employer] Patient Education Copyright 2009 - 2010 Marcos except where otherwise noted. Preventing Falls: Moving [...] that mean climbing, even on a stepstool. [employer] Patient Education Copyright 2008 - 2010 [employer] except where otherwise noted. Treating Urinary Incontinence [...] prostate surgery can result in permanent incontinence. Hi Mr. Johns, As your primary care physician, I [...] Negative Ketone, Urine Negative Negative mg/dL Specific Sedan, Urine 1.010 1.003 - 1.030 Blood, Urine Negative Negative pH, Urine 5.5 5.0 - 7.5 units Protein, Urine Negative Negative mg/dL Urobilinogen, Urine 0.2 0.2 - 1.0 mg/dL Nitrite, Urine Negative Negative Esterase, Urine Negative Negative Sincerely, Clarisse Lay Luna, DO 09/19/2024 [facility] Calendar (as of [...] your insurance company to determine what's covered. [employer] is a great tool that helps you review your medical record online, including test results, doctor notes and your health summary. You can also schedule appointments with me and other members of your care team, request prescription refills and ask for advice related to your medical conditions at [email or web address]. documented in this encounter Progress Notes * Michelle Hunter, KARAN - 09/19/2024 10:12 AM EST AD8 Dementia [...] rih 03/13 recurrent RIH repaired by [facility] Sciatica 08/03/2003 Unilateral inguinal hernia 1965 LIH repair Unilateral inguinal hernia 02/15/01 RIH repair Unilateral inguinal hernia without obstruction or gangrene 03/28/2003 prior repair [direct] by camilla 02-08; repaired 04-02-03. Past Surgical History: Procedure Laterality Date CATARACT SURGERY,COMPLEX COLONOSCOPY, DIAGNOSTIC (RECTUM) 07/06/2018 adenomatous polyps, diverticulosis, fair prep, repeat 3 yrs/COLONOSCOPY FLEXIBLE PROXIMAL DIAGNOSTIC performed by Hailey Cohen MD at ENDOSCOPY [facility] LUMBAR HEMILAMINECTOMY 2012 Dr[facility] Charles [facility]. REMOVE LUMBAR SPINE LAMINA, [address] Varner REPAIR INITIAL INGUINAL HERNIA REDUCIBLE AGE 5 OR MORE Inguinal Hernia Repair,5+Y/O,Reducibl REPAIR RECURRENT INGUINAL HERNIA 04/02/2003 recurrent RIH repair by [facility] at [facility] REPAIR RECURRENT INGUINAL HERNIA Left REPAIR RECURRENT INGUINAL HERNIA Left 11/23/2016 11/23/2016 left recurrent direct inguinal hernia with mesh - [facility] Dr. Roger Hudson REPAIR RECURRENT INGUINAL HERNIA Left 11/23/2016 Dr. Hudson- [facility] Family History Problem Relation Name Age of [...] Story - with basement stairs: 13 with railings Community Resources: Not Applicable Functional Status and [...] Present: Visually impaired Older than age 70 Xjm-Qs-jyo-Go Test: Time began at 1000. Patient stood from sitting position and walked approximately 10 feet, returned and sat down. Total time for rxv-pk-yud-go test was 9 seconds. Wgx-Fm-zab-Go Test completed? Yes Gender Specific Preventative Plan: [...] assessment - doing well, goes to the [facility] and Falls Risk screening - discussed Exercise [...] [facility] on [facility]24 HEMOGLOBIN A1C PANEL HEMOGLOBIN A1C/HEMOGLOBIN.TOTAL [...] AM Patient did have A1C done at [facility] on 09/12/24 and it was 6.2 [facility] and get his hearing [...] from the original note were not included. [address] Understanding Carbohydrates Just like a car needs [...] of rice 4 to 6 crackers 1/2 Bengali muffin 1/2 cup of black beans 1/4 of a large baked potato (3 ounces) 2/3 cup of plain fat-free yogurt 1 cup of soup 1/2 cup of casserole 6 chicken nuggets [id number] brownie or cake without frosting 2 small [...] should have. Last Reviewed Date: 2023 00:00:00 [id number] [employer]. All rights reserved. This information is not intended as a substitute for professional medical care. Always follow your healthcare professional's instructions. * Pt Handout (on AVS) - Michelle Hunter RN - 09/19/2024 10:50 AM EST Images from the original note were not included. 54045 Dehydration The human body is comprised largely [...] high fever. Last Reviewed Date: 2022 00:00:00 9712-6388 [employer]. All rights reserved. This information is not [...] have and how well it?s controlled. The [place] Diabetes Association (ADA) advises an A1C test [...] should keep an A1C below 7%. The [place] Association of Clinical Endocrinologists advises an A1C [...] the test. Last Reviewed Date: 2021 00:00:00 9647-2869 [employer]. All rights reserved. This information is not intended as a substitute for professional medical care. Always follow your healthcare professional's instructions. * Pt Handout (on AVS) - Michelle Hunter RN - 09/19/2024 10:50 AM EST Images from the original note were not included. 80510 5 Steps for Eating Healthier Changing the [...] your fist. Last Reviewed Date: 2022 00:00:00 [id number] [employer]. All rights reserved. This information is not intended as a substitute for professional medical care. Always follow your healthcare professional's instructions. * Pt Handout (on AVS) - Michelle Hunter RN - 09/19/2024 10:49 AM EST Images from the original note were not included. 49740 5 Steps for Eating Healthier Changing the [...] your fist. Last Reviewed Date: 2022 00:00:00 [id number] [employer]. All rights reserved. This information is not [...] have and how well it?s controlled. The [place] Diabetes Association (ADA) advises an A1C test [...] should keep an A1C below 7%. The [place] Association of Clinical Endocrinologists advises an A1C [...] the test. Last Reviewed Date: 2021 00:00:00 4637-5665 [employer]. All rights reserved. This information is not [...] Clinic Individual(s) present for conversation: Patient Decisions Synopsis SmartLink Most Recent Value Past ~10 years 09/20/2024 11:18 Decisions CPR decision: Declines CPR 09/20/2024 Declines CPR Intubation/Mechanical Ventilation decision: Declines Intubation/mechanical ventilation 09/20/2024 Declines Intubation/mechanical ventilation Antibiotic therapy decision: Declines Antibiotic therapy 09/20/2024 Declines Antibiotic therapy Artificial nutrition decision: Declines Artificial nutrition 09/20/2024 Declines Artificial nutrition IV hydration decision: Declines IV hydration 09/20/2024 Declines IV hydration Surgical procedure(s) decision: Declines Surgical procedure 09/20/2024 Declines Surgical procedure Blood transfusion decision: Declines Blood transfusion 09/20/2024 Declines Blood transfusion Dialysis decision: Declines Dialysis 09/20/2024 Declines Dialysis Additional Comments Synopsis SmartLink Most Recent Value [...] Being a burden to family;Going to a usp pt states "no usp" he also states he doesn't worry about it, all my trust is in God" 09/17/2023 Being a burden to family;Going to a usp pt states "no usp" he also states he doesn't worry about [...] may affect health care decisions: pt is Muslim, attend baptism at [facility] regularly. pt states "all my trust is in God, when it's my time , it's my time. 09/17/2023 pt is Muslim, attend baptism at [facility] regularly. pt states "all my trust is in God, when it's my time , it's my time. Source: Content from [employer] [place] Program Aligning Care With What Matters Most: Synopsis SmartLink Most Recent Value Past ~10 years 09/20/2024 11:18 Aligning Care With What Matters Most In their own words, the patient's understanding of their prognosis: pt states he has no concers andfeels health is very good compared to others his age. 09/17/2023 Interventions/Choices: CPR;Antibiotic therapy;Intubation/mechanical ventilation;Artificial nutrition;IV hydration;Blood transfusion;Surgical procedure;Dialysis 09/20/2024 CPR;Antibiotic therapy;Intubation/mechanical ventilation;Artificial nutrition;IV hydration;Blood transfusion;Surgical procedure;Dialysis Rationale for Decisions Source: Content from Respecting Choices Program 5 minutes spent in direct [id number] discussion today, Late entry patient brought a copy of ACP, I sent to scanning to be put into chart. Michelle Eirich, RN documented in this encounter Plan of Treatment Upcoming Encounters Date Type Department Care Team (Late st Contact Info) Description 01/01/2025 11:00 AM EDT Office Visit Urology, [facility] [address] [facility] [place] [address] Manolo Jones MD [address] [place] [address] 05/04/2025 9:30 AM EDT Office Visit Family Medicine [address] [place] [phone] Clarisse Luna[address] [place] [address] 09/21/2025 9:00 AM EST Nurse Only Ancillary [address] [place] [address] [place], Nurse [address] [place] [address] Scheduled Procedures Name Priority Associated Diagnoses Date/Ti [...] glucose documented in this encounter Care Teams Clinical Trial Coordinator Relationship Specialty Start Date End Date Clarisse Luna DO [address] [place] [address] [place] [address] PCP - General Internal Medicine 06/04/17 documented as of this encounter
--- OUTSIDE RECORDS SUMMARY | 2024-10-08 08:50 | External Medical Summary | Summary of Care ---
Author Name Unknown Organization [facility] Address [address] [place] [address] Phone [phone] Care Team Providers Care Entry Level Sales Associate Name Role Phone Clarisse Luna DO Primary Care Provider [phone] Reason for Visit * Reason Comments Re-Check Pt is asking for a s troer allergy medicine, claritin doesn't seem to work as well anymore. 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 documented as of this [...] Sign Reading Time Taken Comments Blood Pressure 146/70 05/02/2024 10:32 AM EDT Pulse 68 05/02/2024 10:32 AM EDT Temperature 36.6 C (97.8 F) 05/02/2024 10:32 AM E DT Respiratory Rate - - Oxygen Saturation 95% 05/02/2024 10:32 AM EDT Inhaled Oxygen Concentration - - Weight 77.6 kg (171 lb) 05/02/2024 10:32 AM EDT Height - - Body Mass Index 25.25 09/17/2023 10:17 AM EST documented in this encounter Patient Instructions * Patient Instructions* Clarisse Luna DO - 05/02/2024 10:47 AM EDT If Claritin doesn't work for you, you can stop it and switch to another allergy pill such as Zyrtec(cetirizine) instead. I recommend that you get your RSV vaccine at the pharmacy prior to winter. documented in this encounter Progress Notes * Clarisse Luna DO - 05/02/2024 10:40 AM EDT Subjective: Elías Jhons Sr. is a 83 year old male. Chief Complaint Patient presents with Re-Check Pt is asking for a stronger allergy medicine, claritin doesn't seem to work as well anymore. HPI: Elías Johns Sr. Presents today for routine follow up. He has no concerns today, other than that his allergies seem to not be responding well to the claritin anymore. He is wondering what else he can take. No recent illnesses or hospitalizations. He is taking his medication as prescribed. Bowels are moving well - he attributes this to drinking coffee. He is urinating well. Nocturia x 0-1. [facility] Breathing feel good. He continues to walk daily - 1 to 2 miles per day. 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 tamsulosin (FLOMAX) 0.4 MG Capsule Take 2 Caps by mouth daily. 60 Cap 5 Loratadine 10 MG Oral Capsule Take 1 Capsule by mouth in the morning. No current facility-administered medications for this visit. Review of patient's allergies indicates: Allergen Reactions Augmentin [Amoxicillin-Pot Clavulanate] Diarrhea Objective: BP 146/70 | Pulse 68 | Temp 36.6 C (97.8 F) | Wt 77.6 kg (171 lb) | SpO2 95% | BMI 25.25 kg/m| BSA 1.94 m General: alert, healthy, no distress, well nourished, and well developed Neck: supple, no adenopathy, thyroid normal size, non-tender, without nodularity Heart: regular rate & rhythm and no murmur Lungs: chest symmetric with normal AP diameter, no chest deformities noted, normal respiratory rateand rhythm, lungs clear to auscultation Abdomen: abdomen soft and non-tender Extremities: no joint deformities, effusion, or inflammation, no edema Neuro Exam: alert & oriented x 3 with fluent speech, no focal motor/sensory deficits, gait normal Skin: skin color, texture, turgor are normal, no rashes or significant lesions ASSESSMENT/PLAN: Nocturia (Primary) - doing well on proscar and flomax Pneumoconiosis (HCC) - stable. Prediabetes - likely age-related hyperglycemia - HEMOGLOBIN A1C; Future; Expected date: 05/02/2024 BPH with obstruction/lower urinary tract symptoms Seasonal allergies - okay to switch from claritin to other allergy pill such as zyrtec shelter current use of therapeutic drug - CBC WITH WBC DIFFERENTIAL AND ANEMIA REFLEX WORKUP; Future; Expected date: 05/02/2024 - COMPREHENSIVE METABOLIC PANEL; Future; Expected date: 05/02/2024 Follow-up: Return in about 1 year (around 05/02/2025). | Check-out note: Labs today Clarisse Luna DO documented in this encounter Plan of Treatment Upcoming Encounters Date Type Department Care Team (Late st Contact Info) Description 09/19/2024 10:00 AM EST Nurse Only Ancillary [address] [place] [phone] [place], Nurse [address] [place] [phone] Pending Results Name Type Priority Associated Diagnoses Date /Time HEMOGLOBIN A1C Lab Routine Prediabetes 05/02/2024 11:09 AM EDT CBC WITH WBC DIFFERENTIAL AND ANEMIA REFLEX WORKUP Lab Routine shelter current use of therapeutic drug 05/02/2024 11:09 AM EDT COMPREHENSIVE METABOLIC PANEL Lab Routine 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 05/02/2024 11:09 AM EDT Scheduled Orders Name Type Priority Associated Diagnoses Orde r Schedule HEMOGLOBIN A1C Lab Routine Prediabetes Expected: 05/02/2024 (Approximate), Expires: 05/02/2025 CBC WITH WBC DIFFERENTIAL AND ANEMIA REFLEX WORKUP Lab Routine shelter current use of therapeutic drug Expected: 05/02/2024 (Approximate), Expires: 05/02/2025 COMPREHENSIVE METABOLIC PANEL Lab Routine 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 Expected: 05/02/2024 (Approximate), Expires: 05/02/2025 Scheduled Procedures Name Priority Associated Diagnoses Date/Ti [...] this encounter Visit Diagnoses Diagnosis Nocturia- Primary Pneumoconiosis (HCC) Pneumoconiosis, unspecified Prediabetes Other abnormal glucose BPH with obstruction/lower urinary tract symptoms Hypertrophy of prostate with urinary obstruction and other lower urinary tract symptoms (LUTS) Seasonal allergies Allergic rhinitis, cause unspecified 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
--- OUTSIDE RECORDS SUMMARY | 2024-10-08 08:50 | External Medical Summary ---
Author Name Unknown Address Unknown Organization [id number][place] [facility] [place] [address] [facility] [place] [address] Laboratory Report Ordering Provider Test Date Status KEY WILSON 05/02/2024 11:09:02 Final Observation Date Value Abnormality Reference (Units ) Status WBC, Total 05/02/2024 11:09:02 5.02 4.00-10.8 0 (K/uL) Final RBC 05/02/2024 11:09:02 3.84 4.50-5.25 (M/uL) Final Hemoglobin 05/02/2024 11:09:02 12.1 Below low normal 14 .0-16.8 (g/dL) Final Anemia reflex testing trigge rs on a HGB < 12.0 for Females and HGB < 13.0 for Males in accordance with the WHO Anemia Guidelines
Anemia reflex testing triggers on a HGB < 12.0 for Females and HGB < 13.0 for Males in accordance with the WHO Anemia Guidelines HCT 05/02/2024 11:09:02 38.1 Below low normal 40. 0-48.4 (%) Final MCV 05/02/2024 11:09:02 99.2 82.0-99.5 (fL) Final MCH 05/02/2024 11:09:02 31.5 27.0-34.0 (pg) Final MCHC 05/02/2024 11:09:02 31.8 32.0-36.0 (g/dL) Final RDW 05/02/2024 11:09:02 15.0 11.5-15.5 (%) Final Platelets 05/02/2024 11:09:02 561 Above hi gh normal 140-400 (K/uL) Final MPV 05/02/2024 11:09:02 10.4 6.6-11.1 ( fL) Final Nucleated erythrocytes/100 leukocytes [Ratio] in Blood by Automated count 05/02/2024 11:09:02 0 <=0 (/100 WBCs) Final Performing Location [facility] [place] [facility] [place] [address] [facility] [address]
--- OUTSIDE RECORDS SUMMARY | 2024-10-08 08:50 | External Medical Summary ---
Author Name Unknown Address Unknown Organization [id number]:[facility]ORY [facility] [place] - [address] [place] [address] Laboratory Report Ordering Provider Test Date Status KATIEKEY 05/02/2024 11:09:02 Final Observation Date Value Abnormality Reference (Units ) Status Ferritin 05/02/2024 11:09:02 235 30-400 (ng /mL) Final Performing Location LABORATORY [facility] - [address] [place] [address]
--- OUTSIDE RECORDS SUMMARY | 2024-10-08 08:50 | External Medical Summary ---
Author Name Unknown Address Unknown Organization [id number][place] [place] [address] [facility] [place] [address] Laboratory Report Ordering Provider Test Date Status KEY WILSON 05/02/2024 11:09:02 Final Observation Date Value Abnormality Reference (Units ) Status BUN 05/02/2024 11:09:02 13 6-20 (mg/dL) Final Creatinine 05/02/2024 11:09:02 0.5 Below low normal 0.6-1.2 (mg/dL) Final Glomerular filtration rate/1.73 sq M.predicted [Volume Rate/Area] in Serum, Plasma or Blood by Creatinine-based formula (CKD-EPI) 05/02/2024 11:09:02 >90 >=60 (mL/min) Final eGFR is calculated based on the CKD-EPI 2020 equation. Sodium 05/02/2024 11:09:02 140 135-146 (m mol/L) Final Potassium 05/02/2024 11:09:02 5.1 3.5-5.1 (m mol/L) Final Cl 05/02/2024 11:09:02 105 98-107 (mm ol/L) Final CO2 05/02/2024 11:09:02 27 22-32 (mmo l/L) Final Anion gap 05/02/2024 11:09:02 8 7-15 (mmol /L) Final Glucose 05/02/2024 11:09:02 108 70-120 (mg /dL) Final Albumin 05/02/2024 11:09:02 3.9 3.8-5.0 (g /dL) Final AST (Aspartate aminotransferase) 05/02/2024 11:09:02 78 Above high normal 10-50 (U/L) Final Alk Phos 05/02/2024 11:09:02 78 35-130 (U/ L) Final Bilirubin, Total 05/02/2024 11:09:02 0.5 <=1 .2 (mg/dL) Final Calcium 05/02/2024 11:09:02 9.8 8.4-10.2 ( mg/dL) Final Protein 05/02/2024 11:09:02 5.7 Below low normal 6.0 -8.3 (g/dL) Final ALT (Alanine aminotransferase) 05/02/2024 11:09:02 35 10-50 (U/L) Michael long Performing Location [facility] [place] [address] [facility] [address]
--- OUTSIDE RECORDS SUMMARY | 2024-10-08 08:50 | External Medical Summary ---
Author Name Unknown Address Unknown Organization [id number]:[facility] [place] - [address] [facility] [place] [address] Laboratory Report Ordering Provider Test Date Status KEY WILSON 05/02/2024 11:09:02 Final Observation Date Value Abnormality Reference (Units ) Status SYNC LEUKOCYTES IN BLOOD BY AUTOMATED COUNT 05/02/2024 11:09:02 5.02 4.00-10.80 (K/uL) Final Segs 05/02/2024 11:09:02 69.3 40.0-75.0 (%) Final Lymphs % 05/02/2024 11:09:02 16.3 Below low normal 18.0-42.0 (%) Final Monos 05/02/2024 11:09:02 10.8 1.0-11.0 (%) Final Eosinophils 05/02/2024 11:09:02 2.8 0.0-6.0 (%) Final Basos 05/02/2024 11:09:02 0.4 0.0-2.0 (%) Final Immature Granulocyte, Percent 05/02/2024 11:09:02 0.4 0.0-2.0 (%) Final Absolute Segs 05/02/2024 11:09:02 3.48 1.80-7.70 (K/uL) Final Lymphs, absolute 05/02/2024 11:09:02 0.82 Below low normal 1.00-4.80 (K/ul) Final Monos, Abs 05/02/2024 11:09:02 0.54 0.00-1.10 (K/uL) Final Eos, Abs 05/02/2024 11:09:02 0.14 0.00-0.70 (K/uL) Final Basos, Abs 05/02/2024 11:09:02 0.02 0.00-0.20 (K/uL) Final Immature Granulocytes, Number 05/02/2024 11:09:02 0.02 0.00-0.20 (K/uL) Final Performing Location [facility] [place] - [facility] [place] [address]
--- OUTSIDE RECORDS SUMMARY | 2024-10-08 08:50 | External Medical Summary ---
Author Name Unknown Address Unknown Organization K01[place] [facility] [place] [address] [place] [address] Laboratory Report Ordering Provider Test Date Status KEY WILSON 05/02/2024 11:09:02 Final Observation Date Value Abnormality Reference (Units ) Status Folic Acid 05/02/2024 11:09:02 9.8 >4.5 (ng/ mL) Final Performing Location LABORATORY [facility] - [address] [place] [address]
--- OUTSIDE RECORDS SUMMARY | 2024-10-08 08:50 | External Medical Summary ---
Author Name Unknown Address Unknown Organization K01:[facility]ORY [facility] - [address] [place] [address] Laboratory Report Ordering Provider Test Date Status KEY WILSON 05/02/2024 11:09:02 Final Observation Date Value Abnormality Reference (Units ) Status Vitamin B12 05/02/2024 11:09:02 299 135-1743 (pg/mL) Final Performing Location LABORATORY [facility] - [address] [place] [address]
--- OUTSIDE RECORDS SUMMARY | 2024-10-08 08:50 | External Medical Summary ---
Author Name Unknown Address Unknown Organization K01[place] [place] [address] [facility] [address] [facility] [address] Laboratory Report Ordering Provider Test Date Status KEY WILSON 05/02/2024 11:09:02 Final Observation Date Value Abnormality Reference (Units ) Status HbA1C 05/02/2024 11:09:02 6.0 Above high normal 4. 0-5.6 (%) Final The use of HbA1c to monitor glycemic status is based on normal hemoglobin and HbA composition. This test should not be used in patients with abnormal hemoglobin that affects the half life of the red blood cell or the in vivo glycation rates. Glucose, estimated average 05/02/2024 11:09:02 126 Above high normal <126 (mg/dL) Michael long Performing Location [facility] [place] [address] [facility] [address] [facility] [address]
--- OUTSIDE RECORDS SUMMARY | 2024-10-08 08:50 | External Medical Summary ---
Author Name Unknown Address Unknown Organization K01[place] [place] [address] [place] [address] Laboratory Report Ordering Provider Test Date Status KEY WILSON 05/02/2024 11:09:02 Final Observation Date Value Abnormality Reference (Units ) Status Retic, % (auto) 05/02/2024 11:09:02 1.54 0.80-1.90 (%) Final Reticulocytes, Absolute 05/02/2024 11:09:02 60.2 31.3-100.1 (K/uL) Final Reticulocyte fraction, immature 05/02/2024 11:09:02 17.8 2.5-20.6 (%) Final Reticulocyte HGB 05/02/2024 11:09:02 32.6 29.7-37.4 (pg) Final Performing Location [facility] [place] [address] [place] [address]
--- OUTSIDE RECORDS SUMMARY | 2024-10-08 08:50 | External Medical Summary ---
Author Name Unknown Address Unknown Organization K01:[facility]ORY [facility] [place] - [address] [facility] [address] [place] [address] Laboratory Report Ordering Provider Test Date Status KATIEMACKEY 05/02/2024 11:09:02 Final Observation Date Value Abnormality Reference (Units ) Status TSH 05/02/2024 11:09:02 2.92 0.27-4.20 (uIU/mL) Final Performing Location LABORATORY [facility] - [address] [place] [address]
--- NOTE | 2024-10-08 09:04 | Emergency Department Note ---
Impression & Plan Syncope, Weakness, Word finding difficulty ED Provider Note Name: KRYSTLE BUSTILLOS Age: 83 Sex: Male Arrives Via: Ambulance Informant: Patient and family ED Provider: Carlo Murray MD Chief Complaint: Weakness Impression: As per impressions above Medical Decision Makin-year-old gentleman with syncopal event this morning arrives for evaluation. On arrival patient states he feels like he is foggy and cannot quite remember the words he wanted to say. He is not having any slurred speech, word finding difficulty or neurologic deficits on my examination beyond he states he feels very confused. Family feels like he is up eating some questioning. On examination he does have an abrasion with contusion over the right posterior scalp. A CT of the head and cervical spine were obtained which is unremarkable. Laboratory workup is unremarkable. Patient will need to come in for a syncopal episode. I do not feel this is consistent with PE dissection or sepsis. While stroke was considered as this essentially started when he woke up this morning I believe he would not be a TNKase candidate. While he did have a fall with head strike given no evidence of abnormality on CT imaging and only an abrasion/contusion on examination I do not feel he requires transfer to higher level of care trauma center at this time. Triage/Nursing Notes reviewed by Me Differential:Vasovagal event, dehydration, infection, hypoglycemia, electrolyte abnormalities, cardiac sources, intracerebral event, pulmonary embolism, seizure, toxicologic, neurologic, as well as other pathologies. Vital Signs: reviewed and remarkable for HTN Interventions: nss bolus Labs:ED labs Reviewed by me and remarkable for no significant abnormalities Imaging:CT of the head without contrast as per my informal interpretation there is no intracranial hemorrhage or mass effect. Confirmed the radiologist. CT of the cervical spine without contrast as per my informal interpretation there is no fracture or dislocation appreciated. Confirmed by radiologist. 1 view chest x-ray as per my interpretation no infiltrate or effusion. EKG:As per my interpretation. Indication syncope. Normal sinus rhythm at 80 bpm QTc of 454. There is no ectopy nor ischemia. There are no current EKGs for comparison Cardiac/Tele Monitoring: Cardiac Monitoring: An Order was placed for continuous cardiac monitoring. The monitor shows a rate of 80 with a normal sinus rhythm. Consults:Discussed with [facility] service who will follow evaluate and manage. Plan: Disposition:Hospitalization. Condition: Good History of Present Illness: 83-year-old gentleman arrives for evaluation of syncope. Patient states he feels very foggy this morning. He feels like he cannot find his words. Denies any focal deficits or weakness. He does not quite remember what happened this morning. According to EMS patient's found the patient laying on the floor minimally responsive and slowly came to. Patient does not recall falling on the ground. He thinks he took a shower this morning. Does not recall if he ate. Notes he currently has a right frontal headache. Denies any neck pain, posterior headache, chest pain palpitations abdominal pain, nausea, vomiting. No medications prior to arrival. Past Medical History: Allergies, BPH Home Medications: Claritin, finasteride, tamsulosin Allergies: Augmentin Vitals:Blood Pressure: 156/89, Pulse 85, RR 17, T 36.7C, O2 96% on RA Physical Exam: GENERAL: Patient is tired/dehydrated appearing and in minimal distress. HEAD: abrasion/hematoma posterior right upper scalp NECK: Nontender without stepoff RESPIRATORY: No dyspnea. Clear to auscultation and equal bilaterally. CARDIOVASCULAR: Regular rate and rhythm.No murmur appreciated. GASTROINTESTINAL: Abdomen soft, non-tender, no peritonitis. EXTREMITIES: Normal motion all extremities, no cyanosis, no edema. NEUROLOGIC: Alert and oriented. No focal neurologic deficits appreciated SKIN: No rash, no jaundice, no diaphoresis. PSYCH: Appropriate GCS: 15 ED Course: Times/Reassessments: Patient stable on repeat evaluations. Agreeable to hospitalization Carlo Murray MD Past Med/Surg History Problem List (Updated 10/08/24 @ 16:22 by Carlo Murray MD) Word finding difficulty (Acute) Weakness (Acute) Syncope (Acute) Recurrent right inguinal hernia Encounter for pre-operative examination Hypertrophy of prostate (Chronic) Inguinal hernia (Chronic) Right leg DVT (Acute) Medical History BPH (benign prostatic hyperplasia) Hearing deficit Surgical History H/O hernia repair X 5 History of cataract surgery RT/LEFT History of colonoscopy History of lumbar surgery X 2 (NO HARDWARE) History of tooth extraction Hx of vasectomy S/P debridement LEFT LEG>WOUND DEBRIDEMENT 2021 *MRSA Family History Other No family history of adverse response to anesthesia Social History Smoking Status: Former smoker Second Hand Exposure: No; Do You Dip or Chew Tobacco: No; Tobacco Cessation Education Requested by Patient: No Hx Alcohol Use: No Hx Substance Use: No Preferred Language: Kinyarwanda Communication Ability Comment: MENTASTA>WEARS AIDS [place] Agent Required: No Beliefs That Will Affect Care: None Current Living Situation: Spouse Current Living Situation Comment: AND SON Other Information That Helps Us Care for You: No Feels Safe at Home: Yes Assistive Devices: Denture - Upper, Glasses and Hearing Aid - Bilateral Allergies Allergies Allergy/AdvReac Type Severity Reaction Status Date / Time amoxicillin [From Augmentin] AdvReac Mild STOMACH Verified 11/02/22 11:25 PROBLEMS clavulanic acid AdvReac Mild STOMACH Verified 11/02/22 11:25 [From Augmentin] PROBLEMS Home Meds Home Medications Medication Instructions Recorded Confirmed finasteride 5 mg tablet 5 mg PO HS 10/13/22 10/08/24 multivitamin 1 tab PO QAM 10/13/22 10/08/24 tamsulosin 0.4 mg capsule 0.4 mg PO HS 10/13/22 10/08/24 loratadine 10 mg tablet (Claritin) 10 mg PO DAILY PRN Allergy Symptoms 11/02/22 10/08/24 Previous Rx's Medication Instructions Recorded oxycodone-acetaminophen 5 mg-325 1 tab PO Q6H PRN pain #10 tabs 11/02/22 mg tablet (Percocet) Results & Data (ED) Vital Signs Vital Signs - 24 hr 10/08/24 08:52 10/08/24 08:54 10/08/24 08:54 Temperature 36.7 C Temperature Source Oral Pulse Rate 80 81 Pulse Rate [Left Finger] Pulse Rhythm Regular Respiratory Rate 17 16 Blood Pressure 156/89 H Blood Pressure [Left Arm] Blood Pressure Mean 111 Blood Pressure Mean [Left Arm] Pulse Oximetry 96 94 94 Oxygen Delivery Method Room Air Room Air Sepsis Recent Fever Within 48 Hours No Sepsis New/Unexplained Change in Mental Status No Sepsis Action Taken by Nursing No Action Required 10/08/24 08:55 10/08/24 09:29 Temperature Temperature Source Pulse Rate 85 Pulse Rate [Left Finger] 76 Pulse Rhythm Respiratory Rate 16 Blood Pressure Blood Pressure [Left Arm] 139/88 Blood Pressure Mean Blood Pressure Mean [Left Arm] 105 Pulse Oximetry 96 Oxygen Delivery Method Sepsis Recent Fever Within 48 Hours Sepsis New/Unexplained Change in Mental Status Sepsis Action Taken by Nursing Laboratory Data 10/08/24 08:56 10/08/24 08:56 Lab Results 10/08/24 10/08/24 10/08/24 Range/Units 08:56 09:00 09:39 WBC 5.56 (4.8-10.8) K/ul RBC 3.97 L (4.70-6.10) M/uL Hgb 12.2 L (14.0-18.0) g/dl POC Hgb 12.6 L (14.0-18.0) g/dl Hct 37.1 L (42.0-52.0) % POC Hct 37 L (42-52) % MCV 93.5 (80.0-100.0) fL MCH 30.7 (25.0-34.0) pg MCHC 32.9 (32.0-36.0) g/dL RDW Std Deviation 54.4 H (36.4-46.3) fL RDW Coeff of Derek 15.7 H (11.5-14.5) % Plt Count 453 H (130-400) K/uL MPV 10.5 (9.4-12.4) fL Immature Gran % (Auto) 0.5 % Neut % (Auto) 75.6 % Lymph % (Auto) 13.8 % [place] % (Auto) 8.5 % Eos % (Auto) 1.4 % Baso % (Auto) 0.2 % Neut # (Auto) 4.20 (1.40-6.50) K/uL Lymph # (Auto) 0.77 L (1.20-3.40) K/uL [place] # (Auto) 0.47 (0.11-0.59) K/uL Eos # (Auto) 0.08 (0.00-0.50) K/uL Baso # (Auto) 0.01 (0.00-0.20) K/uL Immature Gran # (Auto) 0.03 (0.01-0.20) K/uL PT 10.3 (9.0-12.0) Seconds INR 0.9 (0.9-1.1) APTT 23 (21-31) Seconds PTT Ratio 0.9 POC Sodium 139 (135-144) mmol/L Sodium 139 (136-145) mmol/L POC Potassium 4.2 (3.3-5.0) mmol/L Potassium 4.2 (3.5-5.1) mmol/L POC Chloride 104 (101-112) mmol/L Chloride 106 (98-107) mmol/L Carbon Dioxide 28 (21-32) mmol/L POC Total CO2 26 (24-31) mmol/L Anion Gap 5 (3-11) POC Anion Gap 14.0 L (16-25) mmol/L POC BUN 14 (7-18) mg/dl BUN 15 (6-23) mg/dl Creatinine 0.48 L (0.6-1.4) mg/dl POC Creatinine 0.5 L (0.6-1.3) mg/dl Est Cr Clr Drug Dosing 118.2 ml/min eGFR 103.10 BUN/Creatinine Ratio 31.3 H (10-20) Glucose 136 H (70-99(Fasting)) mg/dl POC Glucose (other) 133 H (70-99) mg/dl Calcium 9.2 (8.6-10.3) mg/dl POC Ioniz Calcium Tato 1.27 (1.12-1.32) mmol/l Total Bilirubin 0.6 (0.2-1.0) mg/dl AST 24 (13-39) U/L ALT 15 (7-52) U/L Alkaline Phosphatase 79 (34-104) U/L Total Creatine Kinase 93 (30-223) U/L Troponin I High Sens 8.2 (0-20) pg/ml Total Protein 6.3 (6.0-8.3) gm/dl Albumin 3.9 (3.4-5.0) gm/dl Globulin 2.4 L (2.5-4.0) gm/dl Albumin/Globulin Ratio 1.6 (0.9-2) SARS-CoV-2 (PCR) NEGATIVE (Negative) Influenza Type A (PCR) Negative (Neg) Influenza Type B (PCR) Negative (Neg) RSV (RT-PCR) Negative (Neg) Administered Medications Discontinued Medications Acetaminophen (Ofirmev) 1,000 mg in 100 mls @ 400 mls/hr IV NOW STA Stop: 10/08/24 09:16 Last Infusion: 10/08/24 09:26 Dose: Infused Documented By: Admin: 10/08/24 09:11 Dose: 400 mls/hr Documented By: LESLEY Sodium Chloride (Nss) 1,000 mls @ 999 mls/hr IV .Q1H1M ONE Stop: 10/08/24 10:02 Last Infusion: 10/08/24 10:11 Dose: Infused Documented By: Admin: 10/08/24 09:10 Dose: 999 mls/hr Documented By: LESLEY Imaging Data Radiologist's Impression: Chest X-Ray 10/08/24 08:51 XR chest 1V not portable CLINICAL HISTORY: Chest pain, nonspecific TECHNIQUE: Single frontal radiograph of the chest was obtained. Comparison: None available at the time of this dictation. FINDINGS: No lines and tubes are seen. Calcified aortic knob is seen. The lungs are clear. No evidence of pleural effusion or pneumothorax. IMPRESSION: No acute chest disease. ACT 112: Negative or not required by law. Electronically signed by: Reinaldo Mckinney M.D. 10/08/2024 9:[address] 10/08/24 09:02 CT head/brain wo con CLINICAL HISTORY: fall, syncope, headache Technique: Contiguous axial CT images of the head were acquired from the base of the skull to the vertex without intravenous contrast administration. Images were viewed in brain, subdural and bone windows. Automated dose lowering techniques and/or adjustment according to patient size were utilized for this exam. Comparison: None available at the time of this dictation. Findings: The ventricles, basal cisterns, and cerebral sulci are normal. There is no acute intracranial hemorrhage or evidence of acute territorial infarction. Neither mass effect, shift of the midline structures, nor abnormal extra-axial fluid collections are shown. Imaged portions of the paranasal sinuses and mastoid air cells are clear. The orbits appear normal. There are no acute fractures of the calvaria or scalp swelling. Impression: No acute intracranial hemorrhage, no evidence of acute territorial infarction or other acute intracranial disease process. ACT 112: Negative or not required by law. Electronically signed by: Reinaldo Mckinney M.D. 10/08/2024 9:[address] 10/08/24 09:04 CT cervical spine wo con CLINICAL HISTORY: fall, trauma TECHNIQUE: Multidetector row helical CT of the cervical spine was performed without administration of intravenous contrast. Coronal and sagittal reformations were obtained. Automated dose lowering techniques and/or adjustment according to patient size were utilized for this exam. Comparison: None available at the time of this dictation. FINDINGS: No acute fractures or subluxations are identified. Degenerative changes are seen in the visualized spine. The alignment is normal. Biapical scarring is seen in the lungs. Nodularity is noted in the lungs. IMPRESSION: 1. Degenerative changes without evidence of acute bony injury. 2. Partial evaluation of faint nodularity in the lungs, this may represent infectious/inflammatory process. ACT 112: Negative or not required by law. Electronically signed by: Reinaldo Mckinney M.D. 10/08/2024 9:35 AM Discharge Plan Visit Data Chief Complaint: Syncope ED Provider: Carlo Murray Discharge Problem: Syncope, Weakness, Word finding difficulty Patient Disposition: Admitted As Inpatient Discharge Instructions Interventions: ED Discharge Assessment Last Done: 10/08/24 15:09 Discharge Problem: Syncope Qualifiers: Syncope type: unspecified Qualified Code(s): R55 - Syncope and collapse
[2024-10-08] MEDS: SODIUM CHLORIDE 0.9% 1,000 ML IV ONE (09:10)
[2024-10-08] MEDS: ACETAMINOPHEN 1,000 MG/100 ML VIAL IV STA (09:11)
[2024-10-08 09:12] LABS: iSTAT Creatinine 0.5 mg/dl (0.6-1.3); iSTAT Hemoglobin 12.6 g/dl (14.0-18.0); iSTAT Ionized Calcium 1.27 mmol/l (1.12-1.32); iSTAT Potassium 4.2 mmol/L (3.3-5.0)
[2024-10-08 09:17] LABS: Basophils # (auto) 0.01 K/uL (0.00-0.20); Basophils % (auto) 0.2 %; Eosinophils # (auto) 0.08 K/uL (0.00-0.50); Eosinophils % (auto) 1.4 %; Hematocrit (blood only) 37.1 % (42.0-52.0); Hemoglobin 12.2 g/dl (14.0-18.0); Immature Granulocytes # (auto) 0.03 K/uL (0.01-0.20); Immature Granulocytes % (auto) 0.5 %; Lymphocytes # (auto) 0.77 K/uL (1.20-3.40); Lymphocytes % (auto) 13.8 %; Mean Corpuscular Hemoglobin 30.7 pg (25.0-34.0); Mean Corpuscular Hgb Conc 32.9 g/dL (32.0-36.0); Mean Corpuscular Volume 93.5 fL (80.0-100.0); Mean Platelet Volume 10.5 fL (9.4-12.4); Monocytes # (auto) 0.47 K/uL (0.11-0.59); Monocytes % (auto) 8.5 %; Neutrophils % (auto) 75.6 %; Platelet Count 453 K/uL (130-400); RDW Coefficient of Variation 15.7 % (11.5-14.5); RDW Standard Deviation 54.4 fL (36.4-46.3); Red Blood Count 3.97 M/uL (4.70-6.10); White Blood Count 5.56 K/ul (4.8-10.8)
--- NOTE | 2024-10-08 09:26 | XRay Report ---
XR chest 1V not portable CLINICAL HISTORY: Chest pain, nonspecific TECHNIQUE: Single frontal radiograph of the chest was obtained. Comparison: None available at the time of this dictation. FINDINGS: No lines and tubes are seen. Calcified aortic knob is seen. The lungs are clear. No evidence of pleur al effusion or pneumothorax. IMPRESSION: No acute chest disease. ACT 112: Negative or not required by law. Electronically signed by: Reinaldo Mckinney M.D. 10/08/2024 9:25 AM
[2024-10-08 09:30] LABS: Albumin Globulin Ratio 1.6 (0.9-2); Albumin Level 3.9 gm/dl (3.4-5.0); BUN Creatinine Ratio 31.3 (10-20); Bilirubin,Total 0.6 mg/dl (0.2-1.0); Calcium 9.2 mg/dl (8.6-10.3); Creatinine Clr Calc Pharmacy 118.2 ml/min; Globulin 2.4 gm/dl (2.5-4.0); Potassium 4.2 mmol/L (3.5-5.1); Total Protein 6.3 gm/dl (6.0-8.3)
--- NOTE | 2024-10-08 09:33 | CT Scan Report ---
CT head/brain wo con CLINICAL HISTORY: fall, syncope, headache Technique: Contiguous axial CT images of the head were acquired from the base of the skull to the angela bronwyn without intravenous contrast administration. Images were viewed in brain, subdural and bone [facility] ws. Automated dose lowering techniques and/or adjustment according to patient size were utilized for this exam. Comparison: None available at the time of this dictation. Findings: The ventricles, basal cisterns, and cerebral sulci are normal. There is no acute intracranial hemorrh age or evidence of acute territorial infarction. Neither mass effect, shift of the midline structures , nor abnormal extra-axial fluid collections are shown. Imaged portions of the paranasal sinuses and mastoid air cells are clear. The orbits appear normal. There are no acute fractures of the calvaria or scalp swelling. Impression: No acute intracranial hemorrhage, no evidence of acute territorial infarction or other acute intracra nial disease process. ACT 112: Negative or not required by law. Electronically signed by: Reinaldo Mckinney M.D. 10/08/2024 9:32 AM
[2024-10-08 09:36] LABS: Troponin I High Sensitivity 8.2 pg/ml (0-20)
--- NOTE | 2024-10-08 09:37 | CT Scan Report ---
CT cervical spine wo con CLINICAL HISTORY: fall, trauma TECHNIQUE: Multidetector row helical CT of the cervical spine was performed without administration of intravenous contrast. Coronal and sagittal reformations were obtained. Automated dose lowering techn iques and/or adjustment according to patient size were utilized for this exam. Comparison: None available at the time of this dictation. FINDINGS: No acute fractures or subluxations are identified. Degenerative changes are seen in the visualized sp ine. The alignment is normal. Biapical scarring is seen in the lungs. Nodularity is noted in the lung s. IMPRESSION: 1. Degenerative changes without evidence of acute bony injury. 2. Partial evaluation of faint nodularity in the lungs, this may represent infectious/inflammatory p rocess. ACT 112: Negative or not required by law. Electronically signed by: Reinaldo Mckinney M.D. 10/08/2024 9:35 AM
[2024-10-08 09:40] LABS: INR 0.9 (0.9-1.1); Partial Thromboplastin Ratio 0.9; Partial Thromboplastin Time 23 Seconds (21-31); Prothrombin Time 10.3 Seconds (9.0-12.0)
[2024-10-08 10:25] LABS: Influenza A virus by PCR Negative (Neg); Influenza B virus by PCR Negative (Neg); RSV by PCR Negative (Neg); SARS CoV2 RNA(COVID-19) Ceph NEGATIVE (Negative)
--- NOTE | 2024-10-08 10:25 | Electrocardiogram Report ---
Test Reason : Blood Pressure : */* mmHG Vent. Rate : 80 BPM Atrial Rate : 80 BPM P-R Int : 190 ms QRS Dur : 94 ms QT Int : 394 ms P-R-T Axes : 77 57 74 degrees QTcB Int : 454 ms Normal sinus rhythm Nonspecific T wave abnormality Abnormal ECG No previous ECGs available Confirmed by Kerri Renner (Sean) on 10/08/2024 10:25:08 AM Referred By: Confirmed By: Kerri Renner
[2024-10-08] MEDS ORDERED: LORATADINE 10 MG TAB PO PRN (11:13)
--- NOTE | 2024-10-08 11:20 | History & Physical Report ---
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 SYNCOPE, FALL R/O SEIZURE, ACUTE CVA - patient noted to be confused after episode as per awake, alert at the ER, confusion improved at the ER, but noted to be repeating words Brain MRI EEG Neurocheck R/O CARDIAC ETIOLOGY- ARRHYTHMIA, VALVULAR ABNORMALITIES - no prodrome no chest pain - Trop negative Echo Telemetry monitoring R/O ORTHOSTATIC HYPOTENSION - dehydrated on ER MD's exam given 1 L NSS bolus - check Ortho VS NSS at 75cc/hr - bedrest, re-evaluate HEAD TRAUMA, RIGHT PARIETAL HEMATOMA CT head: no acute injury possible concussion Neurocheck q4h Other chronic medical problems: BPH- on Finasteride, Famotidine Pneumoconiosis Pre DM DVT prophylaxis SCDs for now Code status - (confirming with ) Disposition lives at home with History of Present Illness Chief Complaint: syncope, fall Primary Care Provider: Clarisse Luna DO 83 year old male with history of BPH, Pneumoconiosis, pre DM presenting after a fall, confusion. History obtained from patient's and daughter at the bedside. As per family, at baseline, patient is active, walks around with assistive device. Patient has been feeling fine until this morning, while cooking, patient's heard a loud noise from the kitchen. She found the patient laying on the floor, minimally responsive. Hearing after a few minutes but was very confused, staring. He managed to be led to a chair, but patient remained confused. EMS called and patient brought to the ER At the ER, patient received with blood pressure 156/89, otherwise essentially normal vital signs. Patient was more awake and alert but complaining of right-sided headache. No chest pain, shortness of breath, palpitations. No focal weakness or numbness Patient's family noticed that he is repetitive with his words. CT head: No acute process CXR: no acute chest disease Allergies Allergy/AdvReac Type Severity Reaction Status Date / Time amoxicillin [From Augmentin] AdvReac Mild STOMACH Verified 11/02/22 11:25 PROBLEMS clavulanic acid AdvReac Mild STOMACH Verified 11/02/22 11:25 [From Augmentin] PROBLEMS Home Medications Medication Instructions Recorded Confirmed Type finasteride 5 mg tablet 5 mg PO HS 10/13/22 10/08/24 History multivitamin 1 tab PO QAM 10/13/22 10/08/24 History tamsulosin 0.4 mg capsule 0.4 mg PO HS 10/13/22 10/08/24 History loratadine 10 mg tablet (Claritin) 10 mg PO DAILY PRN Allergy Symptoms 11/02/22 10/08/24 History oxycodone-acetaminophen 5 mg-325 1 tab PO Q6H PRN pain #10 tabs 11/02/22 10/08/24 Rx mg tablet (Percocet) Past Med/Surg History Problem List (Updated 10/08/24 @ 11:14 by Kleber Hawley MD) Syncope Recurrent right inguinal hernia Encounter for pre-operative examination Hypertrophy of prostate (Chronic) Inguinal hernia (Chronic) Right leg DVT (Acute) Medical History BPH (benign prostatic hyperplasia) Hearing deficit Surgical History H/O hernia repair X 5 History of cataract surgery RT/LEFT History of colonoscopy History of lumbar surgery X 2 (NO HARDWARE) History of tooth extraction Hx of vasectomy S/P debridement LEFT LEG>WOUND DEBRIDEMENT 2021 *MRSA Family History Other No family history of adverse response to anesthesia Social History Smoking Status: Never smoker Second Hand Exposure: Yes ( A CHILD); Do You Dip or Chew Tobacco: No (AT AGE 51); Hx Alcohol Use: No Preferred Language: Lao Communication Ability Comment: FLANDREAU>WEARS AIDS Financial Institution Branch Manager Required: No Beliefs That Will Affect Care: Mormon Mormon Beliefs: SCIENTOLOGY Current Living Situation: Family Current Living Situation Comment: AND SON Feels Safe at Home: Yes Assistive Devices: Denture - Upper, Glasses and Hearing Aid - Bilateral Review of Systems Review of Systems: all noted and negative except for above Physical Exam Physical Exam: General- oriented x 2-3, not in distress, speaks in sentences with no effort or accessory muscle use Head- (+) small, mild hematoma right parietal aspect Eyes- PERRL, EOMI, anicteric ENT- oropharynx clear Neck- supple, no JVD, no adenopathy, no thyromegaly; carotids +2/2, no bruits appreciated Lungs- clear to auscultation bilaterally, no rales/wheezes Heart- normal rate, regular rhythm; no murmur, no gallop, no rub appreciated Abdomen- normal bowel sounds, nondistended, soft, nontender, no masses or hepatosplenomegaly Extremities- no pretibial edema, no calf tenderness; peripheral pulses intact Neuro- alert, oriented x 2-3; CN 2-12 grossly intact; motor 5/5 bilaterally;sensation 100% on all extremities; no other gross focal neurologic deficits Skin- warm & dry Results & Data Results & Data Vital Signs (Past 12 Hours) Vital Signs Temp Pulse Pulse Resp BP BP Pulse Ox 10/08/24 10:51 74 16 137/80 96 10/08/24 09:29 76 16 139/88 96 10/08/24 08:55 85 10/08/24 08:54 81 16 94 10/08/24 08:54 94 10/08/24 08:52 36.7 C 80 17 156/89 H 96 O2 Del Method 10/08/24 10:51 Room Air 10/08/24 09:29 10/08/24 08:55 10/08/24 08:54 Room Air 10/08/24 08:54 Room Air 10/08/24 08:52 all noted and reviewed including below Code Status & VTE Plan VTE Prophylaxis Plan VTE Prophylaxis will be ordered: Yes
--- NOTE | 2024-10-08 13:15 | Magnetic Resonance Report ---
MR brain wo con CLINICAL HISTORY: syncope TECHNIQUE: Multiplanar and multisequence MR images of the brain were obtained without intravenous con trast. Comparison: None available at the time of this dictation. FINDINGS: No abnormal restricted diffusion is identified. Foci of T2 and FLAIR hyperintensity are noted in the paraventricular areas consistent with chronic small vessel ischemic disease. Ex vacuo ventriculomegal y and sulcal enlargement is noted compatible with diffuse volume loss. No mass is seen. There is no m ass effect or midline shift. There is no evidence of acute intraparenchymal hemorrhage. No extra axia l fluid collections are seen. The corpus callosum, pituitary gland, and cerebellar tonsils appear jefferson ssly unremarkable. No temporal lobe edema is seen. Flow voids of the major intracranial arterial vessels are identified. The imaged portions of the para nasal sinuses, mastoid air cells, and orbits are unremarkable. IMPRESSION: No acute abnormality is seen in particular there is no evidence of infarct or temporal lobe edema. Ex pected age-related changes as above. ACT 112: Negative or not required by law. Electronically signed by: Reinaldo Mckinney M.D. 10/08/2024 1:13 PM
[2024-10-08] MEDS ORDERED: ONDANSETRON INJ 2 MG/ML 2 ML VIAL IV PRN (15:36)
[2024-10-08] MEDS: SODIUM CHLORIDE 0.9% 1,000 ML IV SCH (16:28)
[2024-10-08 17:20] LABS: Appearance Urine Clear (Clear); Bilirubin Urine Negative (Negative); Blood Urine Negative (Negative); Color Urine Yellow; Glucose Urine UA Negative (Negative); Ketones Urine Negative (Negative); Leukocyte Esterase Urine Negative (Negative); Nitrite Urine Negative (Negative); Protein Urine Negative (Negative); Specific Gravity Urine 1.008 (1.000-1.030); Urobilinogen Urine Negative (Negative)
[2024-10-08] MEDS: ACETAMINOPHEN 325 MG TAB PO PRN (19:42)
[2024-10-08] MEDS: TAMSULOSIN HCL 0.4 MG CAP PO SCH (21:30)
[2024-10-08] MEDS: FINASTERIDE 5 MG TAB PO SCH (22:21)
[2024-10-09 06:33] LABS: Basophils # (auto) 0.01 K/uL (0.00-0.20); Basophils % (auto) 0.2 %; Eosinophils % (auto) 2.4 %; Hemoglobin 11.3 g/dl (14.0-18.0); Immature Granulocytes # (auto) 0.01 K/uL (0.01-0.20); Immature Granulocytes % (auto) 0.2 %; Lymphocytes % (auto) 14.3 %; Mean Corpuscular Hemoglobin 30.4 pg (25.0-34.0); Mean Corpuscular Hgb Conc 33.2 g/dL (32.0-36.0); Mean Corpuscular Volume 91.4 fL (80.0-100.0); Mean Platelet Volume 10.4 fL (9.4-12.4); Monocytes % (auto) 9.5 %; Neutrophils # (auto) 3.08 K/uL (1.40-6.50); Neutrophils % (auto) 73.4 %; Platelet Count 403 K/uL (130-400); RDW Coefficient of Variation 15.8 % (11.5-14.5); RDW Standard Deviation 52.5 fL (36.4-46.3); Red Blood Count 3.72 M/uL (4.70-6.10)
[2024-10-09 06:57] LABS: Albumin Globulin Ratio 1.6 (0.9-2); Albumin Level 3.3 gm/dl (3.4-5.0); BUN Creatinine Ratio 31.6 (10-20); Bilirubin,Total 0.7 mg/dl (0.2-1.0); Calcium 8.8 mg/dl (8.6-10.3); Creatinine Clr Calc Pharmacy 154.8 ml/min; Globulin 2.1 gm/dl (2.5-4.0); Magnesium 1.9 mg/dl (1.7-2.4); Phosphorus 2.6 mg/dl (2.5-4.9); Potassium 3.6 mmol/L (3.5-5.1); Total Protein 5.4 gm/dl (6.0-8.3)
[2024-10-09] MEDS: MULTIVITAMIN TAB PO SCH (06:57)
--- NOTE | 2024-10-09 15:05 | Electrocardiogram Report ---
Test Reason : Blood Pressure : */* mmHG Vent. Rate : 96 BPM Atrial Rate : 96 BPM P-R Int : 190 ms QRS Dur : 94 ms QT Int : 356 ms P-R-T Axes : 56 33 75 degrees QTcB Int : 449 ms Normal sinus rhythm Nonspecific T wave abnormality Abnormal ECG When compared with ECG of 08-Oct-2024 08:54, No significant change was found Confirmed by Brian Alegria ([id number]) on 10/09/2024 3:05:26 PM Referred By: REFERRED SELF Confirmed By: Brian Alegria
--- NOTE | 2024-10-09 17:34 | Hospitalist Progress Note ---
Date of Service October 09, 2024 Assessment & Plan (1) Syncope: (2) Heart failure with reduced ejection fraction: Plan Patient with what appears to be a true syncopal event. New findings of slightly decreased ejection fraction Consult cardiology to determine if further inpatient cardiac evaluation warranted EEG result pending Phone update with patient's . She does report that he was incontinent of stool shortly after his syncopal event. Will evaluate EEG result determine if neurology consultation is warranted for possible seizure. states that he usually is really quite active with minimal medical problems. Walks a mile or more 3-4 times weekly. She does state that she has noticed him having some more issues with short-term memory. Continue telemetry monitoring Therapies 54 minutes spent in reviewing records, communication with staff, communication w ith family, coordinating care, bedside evaluation, reviewing results and interpretation Admission and Anticipated Discharge Date Admission Date: October 08, 2024 Subjective Patient denies any recurrent dizziness, lightheadedness or near syncopal symptoms. Physical Exam Physical Exam: Constitutional: Alert HEENT: Mucous membranes moist., Contusion right posterior scalp Lungs: Clear to auscultation, decreased, no wheezes rales or rhonchi CV: S1-S2, regular, systolic murmur faint Abdomen: Soft, nontender, nondistended Extremities: No significant edema Neuro: No focal deficits Psych: Cooperative, normal mood Results & Data Results & Data Vital Signs (Past 12 Hours) Vital Signs Temp Pulse Pulse Resp BP Pulse Ox O2 Del Method 10/09/24 15:44 36.6 C 86 20 136/77 96 Room Air 10/09/24 15:13 85 10/09/24 11:13 36.7 C 73 20 135/81 94 Room Air 10/09/24 08:34 36.4 C L 80 20 155/78 H 93 Room Air 10/09/24 07:36 Room Air 10/09/24 06:51 78 Diagnostic Findings Reviewed imaging, laboratory and diagnostic studies. Pertinent findings as below. Hemoglobin 11.3 Platelets 403 Electrolytes stable Creatinine 0.38 MRI of the brain negative for acute infarct Echocardiogram showed ejection fraction 40-45%, mild aortic regurg Personally reviewed EKG, sinus rhythm, no acute ST-T wave changes Orthostatic vitals unremarkable Reviewed outside EMR, no previous echocardiogram to compare. Typically just sees family physician for routine care (1) Syncope Syncope type: unspecified Qualified Code(s): R55 - Syncope and collapse
[2024-10-10 06:39] LABS: Hemoglobin 12.6 g/dl (14.0-18.0); Mean Corpuscular Hemoglobin 30.4 pg (25.0-34.0); Mean Corpuscular Hgb Conc 33.2 g/dL (32.0-36.0); Mean Corpuscular Volume 91.6 fL (80.0-100.0); Mean Platelet Volume 10.4 fL (9.4-12.4); Platelet Count 466 K/uL (130-400); RDW Coefficient of Variation 15.7 % (11.5-14.5); RDW Standard Deviation 52.5 fL (36.4-46.3); Red Blood Count 4.15 M/uL (4.70-6.10); White Blood Count 4.94 K/ul (4.8-10.8)
[2024-10-10 07:04] LABS: Calcium 9.3 mg/dl (8.6-10.3); Creatinine Clr Calc Pharmacy 143.4 ml/min; Potassium 3.9 mmol/L (3.5-5.1)
[2024-10-10 07:19] LABS: Thyroid Stimulating Hormone 4.196 uIu/ml (0.300-4.500)
[2024-10-10 07:29] VITALS: RESP 18
--- NOTE | 2024-10-10 09:06 | Cardiology Consultation ---
Date of Consultation October 10, 2024 Assessment & Plan (1) Syncope: (2) Heart failure with reduced ejection fraction: Plan Assessment: 83 year old male who presents to the ER after a syncopal event with unclear etiology. Echocardiogram reveals reduced LVEF with no prior studies for comparison, but no prior cardiac history. Plan: 1. Syncope: 2. HFrEF -Etiology remains unclear, question if this may have been an arrhythmia related event vs neurological as patient had no prodromal symptoms, was confused post event, was found staring off and had bowel incontinence. -EKG with non-specific T wave abnormality, and no acute events overnight on telemetry -EEG pending for consideration of possible seizure -Echo with reduced LVEF 40-45%, unclear if this is new as there are no prior studies for comparison. troponin negative x1. -Would recommend that when patient is appropriate for discharge that protracted monitoring be obtained with 14 day ZIO, followed by OP cardiology follow up to further assess his reduced LVEF. Would consider addition of low dose Toprol xl given resting HR of 100-110bpm Case has been discussed with Dr. Del Toro. Further recommendations regarding plan of care as per his assessment. I spent a total of 40 minutes on the date of service in preparation, delivery, documentation of the care provided to the patient excluding any time spent in the performance of separately billed services. SHARATH Stein [facility] Cardiology [facility] Supervising Physician Co-Signing Physician Notes Attending attestation: Case reviewed with the advanced practitioner. I have personally performed a history and physical examination on the patient. I have reviewed the advanced practitioner's documentation on the date of service referenced in note, and I agree with, and take responsibility for the plan of care. Subjective: Patient feeling well. No previous loss of conscious episodes and none since. Telemetry reveals sinus rhythm in the 80s with first-degree AV block, no pauses, no episodes of tachycardia. Exam: Cardiovascular: Regular rhythm, no murmurs, lungs clear, no edema Data: Echocardiogram performed this admission reviewed independently, borderline to mild global left ventricular hypokinesis, LVEF 45% per my assessment. Impression/ Plan: As noted above -Patient stable for discharge with plans for a 2-week Zio patch monitor -Will start patient on low-dose metoprolol succinate 25 mg daily, lisinopril 2.5 mg daily. -Continue Flomax with caution. -Will arrange for outpatient cardiology follow-up after testing completed. I spent a total of 20 minutes coordinating, documenting, and providing care for this patient excluding time spent in the performance of separately billed services or time spent by another provider. Pérez Del Toro, DO History of Present Illness Reason for Consultation: Syncope Requesting Physician: Aida riosist Attending Physician: Indra Gutierrez DO History of Present Illness HPI: Patient is a 83 year old male with PMHx significant for BPH, Pneumoconiosis, Pre-DM that presented to the ER after a fall with confusion. History was obtained from family who reports that patient had been feeling his usual state of health until yesterday morning. heard a sudden loud noise from the kitchen, finding the patient laying on the floor in another room "minimally responsive". Patient appeared to become more responsive after a few minutes, but was quite confused and found staring. reports that patient had been incontinent of stool at time of episode. Patient became more alert by the time he had reached the hospital complaining of a right-sided headache. Offers no cardiac complaints Upon seeing patient today, he is sitting up on the side of the bed visiting with family/friend. Denies any cardiac complaints. No chest pain, pressure, palpitations, no shortness of breath, PND, pre-syncope or edema. Patient continues to endorse that he had no prodromal symptoms prior to his event, and only remembers the ambulance arriving to the hospital. he states that he has had a total of 3 syncopal events in his lifetime (this being one of the three). The way in which he describes the first two sound like vasal vagal in nature. EKG on arrival NSR with non-specific T wave abnormality, unchanged from prior. Rate 96bpm. Echocardiogram noted below demonstrates mildly reduced LVEF 40-45%, Mild AI, no prior studies for comparison High sensitivity troponin x1 Head CT: Impression: No acute intracranial hemorrhage, no evidence of acute territorial infarction or other acute intracranial disease process. Cervical spine CT IMPRESSION: 1. Degenerative changes without evidence of acute bony injury. 2. Partial evaluation of faint nodularity in the lungs, this may represent infectious/inflammatory process. Brain MRI: IMPRESSION: No acute abnormality is seen in particular there is no evidence of infarct or temporal lobe edema. Expected age-related changes as above. For EEG. Allergies Allergy/AdvReac Type Severity Reaction Status Date / Time amoxicillin [From Augmentin] AdvReac Mild STOMACH Verified 11/02/22 11:25 PROBLEMS clavulanic acid AdvReac Mild STOMACH Verified 11/02/22 11:25 [From Augmentin] PROBLEMS Home Medications Medication Instructions Recorded Confirmed Type finasteride 5 mg tablet 5 mg PO HS 10/13/22 10/08/24 History multivitamin 1 tab PO QAM 10/13/22 10/08/24 History tamsulosin 0.4 mg capsule 0.4 mg PO HS 10/13/22 10/08/24 History loratadine 10 mg tablet (Claritin) 10 mg PO DAILY PRN Allergy Symptoms 11/02/22 10/08/24 History oxycodone-acetaminophen 5 mg-325 1 tab PO Q6H PRN pain #10 tabs 11/02/22 10/08/24 Rx mg tablet (Percocet) lisinopril 2.5 mg tablet 2.5 mg PO DAILY #30 tabs 10/10/24 Rx metoprolol succinate 25 mg 25 mg PO QAM #30 tabs 10/10/24 Rx tablet,extended release 24 hr Patient History Medical History BPH (benign prostatic hyperplasia) Hearing deficit Surgical History H/O hernia repair X 5 History of cataract surgery RT/LEFT History of colonoscopy History of lumbar surgery X 2 (NO HARDWARE) History of tooth extraction Hx of vasectomy S/P debridement LEFT LEG>WOUND DEBRIDEMENT 2021 *MRSA Family History Other No family history of adverse response to anesthesia Social History Smoking Status: Former smoker Second Hand Exposure: No; Do You Dip or Chew Tobacco: No; Tobacco Cessation Education Requested by Patient: No Hx Alcohol Use: No Hx Substance Use: No Preferred Language: Mongolian Communication Ability: Effective Communication Ability Comment: SLEETMUTE>WEARS AIDS Button Buttonhole Marker Required: No Beliefs That Will Affect Care: None Current Living Situation: Spouse Current Living Situation Comment: AND SON Other Information That Helps Us Care for You: No Feels Safe at Home: Yes Assistive Devices: None Review of Systems Review of Systems: All systems reviewed & are unremarkable except as noted in HPI & below Physical Exam Constitutional: well developed and well nourished; no acute distress and not ill appearing Neck: normal visual inspection and trachea midline Respiratory: normal respiratory effort, lungs clear to auscultation Cardiovascular: Rate/Rhythm: regular rate and regular rhythm Heart Sounds: normal S1 and normal S2; no murmur Vessels: dorsalis pedis pulses present; no JVD Extremities: no edema Skin: no rashes, warm and dry Psychiatric: A+Ox3, euthymic affect Results & Data Vital Signs (Past 12 Hours) Vital Signs Temp Pulse Pulse Resp BP Pulse Ox O2 Del Method 10/10/24 07:28 36.5 C 79 18 149/80 H 96 Room Air 10/10/24 04:58 83 10/10/24 04:15 36.6 C 73 20 143/84 H 93 Room Air 10/10/24 00:05 37.2 C 74 20 127/66 95 Room Air 10/09/24 22:02 66 Laboratory Results CBC 10/10/24 Range/Units 05:20 WBC 4.94 (4.8-10.8) K/ul RBC 4.15 L (4.70-6.10) M/uL Hgb 12.6 L (14.0-18.0) g/dl Hct 38.0 L (42.0-52.0) % Plt Count 466 H (130-400) K/uL Comprehensive Metabolic Panel 10/10/24 Range/Units 05:20 Sodium 139 (136-145) mmol/L Potassium 3.9 (3.5-5.1) mmol/L Chloride 107 (98-107) mmol/L Carbon Dioxide 26 (21-32) mmol/L BUN 16 (6-23) mg/dl Creatinine 0.41 L (0.6-1.4) mg/dl Glucose 108 H (70-99(Fasting)) mg/dl Calcium 9.3 (8.6-10.3) mg/dl Intake and Output 10/09/24 10/10/24 10/10/24 22:59 06:59 14:59 Intake Total 1220 / 2140 200 / 2140 Balance 1220 / 2140 200 / 2140 Intake: IV 720 / 720 Sodium Chloride 0.9% 1,000 ml @ 720 / 720 75 mls/hr IV .[id number] AQUILINO Rx#: [id number] Oral 500 / 1420 200 / 1420 Other: Weight 75.9 kg Weight Measurement Method Built in [facility] Diagnostic Findings Echocardiogram 10/08/2024: LVEF 40-45% LV function mildly reduced LV mildly dilated RV normal size and function Mild AI Mildly dilated ascending aorta, Normal IVC size, normal Right atrial pressure. (1) Syncope Syncope type: unspecified Qualified Code(s): R55 - Syncope and collapse
[2024-10-10 11:26] VITALS: BP 151/79; TEMP 97.9; O2SAT 95
[2024-10-10] MEDS: METOPROLOL SUCC 25MG EXT REL TAB PO SCH (13:53)
--- NOTE | 2024-10-10 15:15 | Discharge Summary ---
Discharge Summary Date of Service October 10, 2024 Principal Dx & Hospital Course #1 = Principal Diagnosis (1) Syncope: (2) Heart failure with reduced ejection fraction: (3) BPH (benign prostatic hyperplasia): Plan Patient 83-year-old gentleman presented to the emergency room after a syncopal event that was unwitnessed at his home. He did have some brief confusion after the event and had stool incontinence but no urine incontinence. In the emergency room his workup Did not reveal any acute abnormalities but was referred for further evaluation. The patient was observed and cared for in the hospital. There was no significant arrhythmias on telemetry monitoring. Orthostatic vital signs were negative. Echocardiogram showed a slightly reduced ejection fraction. Cardiology consultation was obtained. Recommended starting Toprol and lisinopril. They will help coordinate outpatient Zio patch monitoring. EEG was performed, report result is still pending. Patient had MRI of the brain performed, there was no evidence of stroke, acute ischemia or mass. There was no seizure activity noted here in the hospital. Patient according to his was at his baseline mental status. There is no recurrent episodes of c onfusion. On the day of discharge the patient was up and ambulating the halls. He had no lightheadedness or dizziness or near syncopal symptoms. He understands that we do not have a definitive diagnosis for why he passed out but we did rule out some significant life-threatening events. He will follow-up outpatient with his PCP and cardiology. Notes For Next Care Provider Follow-up with cardiology for ZIO monitor Follow-up EEG results, may need neurology consultation outpatient Medication Changes From Visit Toprol for reduced ejection fraction Lisinopril for reduced ejection fraction Admission HPI Per Admitting Provider 83 year old male with history of BPH, Pneumoconiosis, pre DM presenting after a fall, confusion. History obtained from patient's and daughter at the bedside. As per family, at baseline, patient is active, walks around with assistive device. Patient has been feeling fine until this morning, while cooking, patient's heard a loud noise from the kitchen. She found the patient laying on the floor, minimally responsive. Hearing after a few minutes but was very confused, staring. He managed to be led to a chair, but patient remained confused. EMS called and patient brought to the ER At the ER, patient received with blood pressure 156/89, otherwise essentially normal vital signs. Patient was more awake and alert but complaining of right-sided headache. No chest pain, shortness of breath, palpitations. No focal weakness or numbness Patient's family noticed that he is repetitive with his words. CT head: No acute process CXR: no acute chest disease Admission Exam Per Admitting Provider See H&P Discharge Exam Constitutional: Alert, ambulating halls HEENT: Mucous membranes moist. Lungs: Clear to auscultation, decreased, no wheezes rales or rhonchi CV: S1-S2, regular Abdomen: Soft, nontender, nondistended Extremities: 1+ ankle edema Neuro: No focal deficits Psych: Cooperative, normal mood Updated Medication List Medication Instructions Recorded Confirmed Type finasteride 5 mg tablet 5 mg PO HS 10/13/22 10/08/24 History multivitamin 1 tab PO QAM 10/13/22 10/08/24 History tamsulosin 0.4 mg capsule 0.4 mg PO HS 10/13/22 10/08/24 History loratadine 10 mg tablet (Claritin) 10 mg PO DAILY PRN Allergy Symptoms 11/02/22 10/08/24 History oxycodone-acetaminophen 5 mg-325 1 tab PO Q6H PRN pain #10 tabs 11/02/22 10/08/24 Rx mg tablet (Percocet) lisinopril 2.5 mg tablet 2.5 mg PO DAILY #30 tabs 10/10/24 Rx metoprolol succinate 25 mg 25 mg PO QAM #30 tabs 10/10/24 Rx tablet,extended release 24 hr Hospital Stay Data Consultations 10/08/24 10:35 ED Decision to Admit Stat 10/09/24 17:43 Consult Cardiology Routine Diagnostic Imagining Performed 10/08/24 09:02 CT head/brain wo con Stat 10/08/24 09:04 CT cervical spine wo con Stat 10/08/24 10:40 MRI Brain [MR brain wo con] Routine Reviewed imaging, laboratory and diagnostic studies. Pertinent findings as below. MRI of the brain shows no evidence for infarct or edema TSH 4.1 B12 521 Electrolytes within normal range Creatinine 0.4 Hemoglobin 12.6 WBCs 4.9 Echocardiogram shows ejection fraction 40 to 45% with mildly reduced left ventricular function mild aortic regurgitation, refer you to full report for details EKG sinus rhythm with nonspecific ST-T wave changes, no significant changes from previous Pending Results Patient Have Any Pending Studies at Discharge: Yes Discharge Instructions Given to Patient (Per Discharging Provider) Follow-up with cardiology. They will coordinate outpatient cardiac monitoring Discussed EEG findings with your PCP Total Time Total Time Spent Total Time Spent (In Minutes): 35
[2024-10-10 15:22] VITALS: PULSE 71
== END 2024-10-10 15:56 | disposition home or self-care (01) | DRG 312 ==
LOC: ED 08:45 → EDINP 10:40 → SUATTDRO 10:40 → 2W 15:09

== ENCOUNTER 2025-09-07 18:08 | Inpatient (IN) ==
--- NOTE | 2025-09-07 18:22 | Emergency Department Note ---
Impression & Plan Chest pain, Elevated troponin I level ED Provider Note NAME: KRYSTLE BUSTILLOS AGE: 84 SEX: M : 1940 ARRIVES VIA: Ambulance INFORMANT: Patient, EMS ED PROVIDER(S): Brian Zhang DO CHIEF COMPLAINT: Chest pain HPI: The patient is an 84-year-old male who presented to the emergency department by ambulance for an evaluation of left-sided chest pain. The patient has left-sided chest pain that occurred while he was judson meat with his significant other. He states he called 911. He was treated with aspirin and nitroglycerin prior to arrival. The patient states he has no pain at this time. He denies having any shortness of breath. He denies having any weight gain or abdominal pain. The patient has noticed some increased swelling in his lower legs over the last year but no obvious cause was found for this. The patient states has been compliant with his outpatient medications otherwise. ROS: See above HPI for pertinent positives & negatives. A total of 10 systems reviewed and were otherwise negative. PAST MEDICAL HISTORY: See Below PAST SURGICAL HISTORY: See Below FAMILY HISTORY: See Below SOCIAL HISTORY: See Below HOME MEDICATIONS: See Below ALLERGIES: See Below VITALS: See Below PHYSICAL EXAMINATION: GENERAL: Patient is awake alert in no acute distress patient is resting comfortably and showing no signs of anxiety EYES: The conjunctivae are clear. The pupils are round and reactive. EARS, NOSE, MOUTH AND THROAT: The nose is without any evidence of any deformity. NECK: The neck is nontender and supple. RESPIRATORY: Normal respiratory effort is noted there is no evidence of wheezing rhonchi or rales CARDIOVASCULAR: Regular rate and rhythm noted there no murmurs rubs or gallops normal S1 normal S2. GASTROINTESTINAL: The abdomen is soft. Abdomen is nontender. MUSCULOSKELETAL/EXTREMITIES: There is no evidence of gross deformity full range of motion is noted in the hips and shoulders. SKIN: Skin is warm and dry. Pedal edema was noted bilaterally. NEUROLOGIC: Patient is awake alert and oriented x3 MEDICAL DECISION MAKING: The patient is an 84-year-old male who presented to the emergency department by ambulance. He was treated with aspirin and nitroglycerin prior to arrival. The patient developed chest pain prior to arrival. He was not exerting himself. The patient arrived at the emergency department without pain. He was feeling much better. I discussed the patient's laboratory and radiographic studies with him. I discussed the limitations of the emergency department workup for chest pain with him. Ultimately he was felt to be a good candidate for inpatient management given his elevated troponin. I discussed his condition with the on- call [facility] hospitalist. They have agreed to evaluate the patient in the emergency department for further management and disposition. Triage Nursing notes reviewed. Prior medical records reviewed Vital Signs: reviewed and remarkable for no significant abnormalities Differential diagnosis: Cardiac ischemia, aortic dissection, pulmonary embolism, pneumothorax, pneumonia, pericarditis, myocarditis, esophageal rupture, GERD, cholecystitis, pancreatitis, musculoskeletal, as well as other pathologies. ER treatment provided: See below Diagnostics interpreted by me: ECG: EKG was obtained in the emergency department. My interpretation is sinus rhythm at 66 bpm. There is no ectopy. There is no acute ST segment abnormalities noted. This was compared to a tracing from December 10, 2024. No changes were noted. Prehospital EKG was reviewed. My interpretation is sinus rhythm at 88 bpm. PVCs were noted. There was no acute ST segment abnormalities noted. This compares similar to the tracing obtained in the emergency department with the exception of the ectopy. Cardiac Monitoring: An order was placed for continuous cardiac monitoring. The monitor shows a rate of 67 bpm with sinus rhythm. Laboratory studies: As stated above and show below. Imaging studies: See below. Radiographic imaging was reviewed by myself Consultation(s): I discussed this case with Dr. Patel who is on-call for the [facility]. Past Med/Surg History Problem List (Updated 09/07/25 @ 20:13 by Brian Zhang DO) Elevated troponin I level (Acute) Chest pain (Acute) Heart failure with reduced ejection fraction Word finding difficulty (Acute) Weakness (Acute) Syncope (Acute) Recurrent right inguinal hernia Encounter for pre-operative examination Hypertrophy of prostate (Chronic) Inguinal hernia (Chronic) Right leg DVT (Acute) Medical History Hearing deficit BPH (benign prostatic hyperplasia) Surgical History S/P debridement LEFT LEG>WOUND DEBRIDEMENT 2021 *MRSA History of lumbar surgery X 2 (NO HARDWARE) Hx of vasectomy History of colonoscopy H/O hernia repair X 5 History of tooth extraction History of cataract surgery RT/LEFT Family History Other No family history of adverse response to anesthesia Social History Smoking Status: Never smoker Tobacco Type: Cigarettes and Smokeless Tobacco (Dip or Chew) Second Hand Exposure: No; Do You Dip or Chew Tobacco: No; Hx Alcohol Use: No Hx Substance Use: No Preferred Language: Nepali Communication Ability: Effective Communication Ability Comment: [place]>WEARS AIDS Community Health Navigator Required: No Beliefs That Will Affect Care: None Current Living Situation: Spouse Current Living Situation Comment: AND SON Feels Safe at Home: Yes Assistive Devices: None Allergies Allergies Allergy/AdvReac Type Severity Reaction Status Date / Time amoxicillin [From Augmentin] AdvReac Mild STOMACH Verified 04/03/25 20:48 PROBLEMS clavulanic acid AdvReac Mild STOMACH Verified 04/03/25 20:48 [From Augmentin] PROBLEMS Home Meds Home Medications Medication Instructions Recorded Confirmed multivitamin 1 tab PO QAM 10/13/22 09/07/25 hydroxyurea 500 mg capsule 500 mg PO QAM 01/19/25 07/19/25 aspirin 81 mg tablet,delayed 81 mg PO QAM 04/03/25 07/19/25 release atorvastatin 40 mg tablet 40 mg PO QAM 04/03/25 09/07/25 finasteride 5 mg tablet 5 mg PO QPM 04/03/25 07/19/25 lisinopril 2.5 mg tablet 2.5 mg PO QAM 04/03/25 09/07/25 loratadine 10 mg capsule 10 mg PO DAILY PRN ALLERRGY 04/03/25 09/07/25 SYMPTOMS omega-3 fatty acids 600 mg PO QAM 04/03/25 07/19/25 tamsulosin 0.4 mg capsule 0.8 mg PO DAILY 04/03/25 07/19/25 donepezil 5 mg tablet (Aricept) 5 mg PO DAILY 07/19/25 07/19/25 Previous Rx's Medication Instructions Recorded metoprolol succinate 25 mg 25 mg PO QAM #30 tabs 10/10/24 tablet,extended release 24 hr Results & Data (ED) Vital Signs Vital Signs - 24 hr 09/07/25 18:08 09/07/25 18:21 09/07/25 18:26 Temperature 36.8 C Temperature Source Oral Pulse Rate 74 89 Pulse Rhythm Regular Regular Pulse Strength Normal Respiratory Rate 20 Respiratory Effort / Characteristics Non-Labored Spontaneous Respiratory Depth Normal Respiratory Pattern Regular Blood Pressure 155/96 H Blood Pressure Mean 115 Pulse Oximetry 97 97 97 Oxygen Delivery Method Room Air Room Air Room Air Oxygen Flow Rate 0 Sepsis Recent Fever Within 48 Hours No Sepsis New/Unexplained Change in Mental Status No Sepsis Action Taken by Nursing No Action Required 09/07/25 19:00 Temperature Temperature Source Pulse Rate 67 Pulse Rhythm Pulse Strength Respiratory Rate Respiratory Effort / Characteristics Respiratory Depth Respiratory Pattern Blood Pressure Blood Pressure Mean Pulse Oximetry Oxygen Delivery Method Oxygen Flow Rate Sepsis Recent Fever Within 48 Hours Sepsis New/Unexplained Change in Mental Status Sepsis Action Taken by Half-Way Medications Current Medication List: was personally reviewed by me Laboratory Data Attestation: I reviewed the patient's lab results. 09/07/25 18:23 09/07/25 18:23 Lab Results 09/07/25 Range/Units 18:23 WBC 4.55 L (4.8-10.8) K/ul RBC 3.47 L (4.70-6.10) M/uL Hgb 12.3 L (14.0-18.0) g/dL Hct 35.6 L (42.0-52.0) % MCV 102.6 H (80.0-100.0) fL MCH 35.4 H (25.0-34.0) pg MCHC 34.6 (32.0-36.0) g/dL RDW Std Deviation 53.1 H (36.4-46.3) fL RDW Coeff of Derek 14.2 (11.5-14.5) % Plt Count 528 H (130-400) K/uL MPV 10.1 (9.4-12.4) fL Immature Gran % (Auto) 0.2 % Neut % (Auto) 65.3 % Lymph % (Auto) 18.0 % [place] % (Auto) 13.0 % Eos % (Auto) 3.3 % Baso % (Auto) 0.2 % Neut # (Auto) 2.97 (1.40-6.50) K/uL Lymph # (Auto) 0.82 L (1.20-3.40) K/uL [place] # (Auto) 0.59 (0.11-0.59) K/uL Eos # (Auto) 0.15 (0.00-0.50) K/uL Baso # (Auto) 0.01 (0.00-0.20) K/uL Immature Gran # (Auto) 0.01 (0.01-0.20) K/uL Sodium 137 (136-145) mmol/L Potassium 3.9 (3.5-5.1) mmol/L Chloride 105 (98-107) mmol/L Carbon Dioxide 27 (21-32) mmol/L Anion Gap 5 (3-11) BUN 17 (6-23) mg/dl Creatinine 0.44 L (0.6-1.4) mg/dl Est Cr Clr Drug Dosing 131.3 ml/min eGFR 105.19 BUN/Creatinine Ratio 38.6 H (10-20) Glucose 100 H (70-99(Fasting)) mg/dl Calcium 9.1 (8.6-10.3) mg/dl Total Bilirubin 0.8 (0.2-1.0) mg/dl AST 36 (13-39) U/L ALT 22 (7-52) U/L Alkaline Phosphatase 76 (34-104) U/L Troponin I High Sens 21.1 H (0-20) pg/ml Total Protein 5.9 L (6.0-8.3) gm/dl Albumin 3.5 (3.4-5.0) gm/dl Globulin 2.4 L (2.5-4.0) gm/dl Albumin/Globulin Ratio 1.5 (0.9-2) Lipase 12 (11-82) U/L Imaging Data Attestation: I personally reviewed and interpreted this imaging study as follows: My Impression: 1 view chest x-ray was obtained in the emergency department. My interpretation is no free air or definite infiltrate, final report below. Radiologist's Impression: Chest X-Ray 09/07/25 18:25 EXAM: Portable AP chest radiograph TECHNIQUE: AP portable radiograph of the chest was obtained. INDICATION: Shortness of breath Comparison: Chest radiograph April 03, 2025. FINDINGS: LINES and TUBES: Loop recorder CARDIOVASCULAR: Cardiac silhouette is enlarged in size. Atherosclerosis of the thoracic aorta. LUNGS/PLEURA: No focal consolidation identified. Chronic interstitial lung changes. No significant pleural fluid. No discernible pneumothorax. OSSEOUS/OTHER: No displaced acute osseous process identified. IMPRESSION: Cardiac silhouette enlargement. No pulmonary edema. No focal consolidation is identified. Peribronchial cuffing that may be due to bronchiolitis. Electronically signed by Jersey Farias 09-07-2025 6:45 PM Discharge Plan Visit Data Chief Complaint: Chest Pain ED Provider: Brian Zhang Discharge Problem: Chest pain, Elevated troponin I level Patient Disposition: Being Evaluated by Hospitalist Condition: Fair Forms Stand Alone Forms: [facility] Prescriptions Prescriptions: No Action multivitamin Tablet 1 tab PO QAM aspirin 81 mg Tablet,Delayed Release (Dr/Ec) 81 mg PO QAM atorvastatin 40 mg tablet 40 mg PO QAM lisinopril 2.5 mg tablet 2.5 mg PO QAM tamsulosin 0.4 mg Capsule 0.8 mg PO DAILY finasteride 5 mg Tablet 5 mg PO QPM omega-3 fatty acids Capsule 600 mg PO QAM loratadine 10 mg Capsule 10 mg PO DAILY PRN (Reason: ALLERRGY SYMPTOMS) metoprolol succinate 25 mg Tablet Extended Release 24 Hr 25 mg PO QAM Qty: 30 0RF hydroxyurea 500 mg Capsule 500 mg PO QAM donepezil [Aricept] 5 mg Tablet 5 mg PO DAILY Rx Instructions: patient reports not taking Referrals Referrals: Clarisse Luna DO [Primary Care Provider] -
[2025-09-07 18:40] LABS: Hematocrit (blood only) 35.6 % (42.0-52.0); Hemoglobin 12.3 g/dL (14.0-18.0); Immature Granulocytes # (auto) 0.01 K/uL (0.01-0.20); Immature Granulocytes % (auto) 0.2 %; Mean Corpuscular Hemoglobin 35.4 pg (25.0-34.0); Mean Corpuscular Volume 102.6 fL (80.0-100.0); Platelet Count 528 K/uL (130-400); RDW Standard Deviation 53.1 fL (36.4-46.3); Red Blood Count 3.47 M/uL (4.70-6.10); White Blood Count 4.55 K/ul (4.8-10.8)
--- NOTE | 2025-09-07 18:46 | XRay Report ---
EXAM: Portable AP chest radiograph TECHNIQUE: AP portable radiograph of the chest was obtained. INDICATION: Shortness of breath Comparison: Chest radiograph April 03, 2025. FINDINGS: LINES and TUBES: Loop recorder CARDIOVASCULAR: Cardiac silhouette is enlarged in size. Atherosclerosis of the thoracic aorta. LUNGS/PLEURA: No focal consolidation identified. Chronic interstitial lung changes. No significant pleural fluid. No discernible pneumothorax. OSSEOUS/OTHER: No displaced acute osseous process identified. IMPRESSION: Cardiac silhouette enlargement. No pulmonary edema. No focal consolidation is identified. Peribronchial cuffing that may be due to bronchiolitis. Electronically signed by Jersey Farias 09-07-2025 6:45 PM
[2025-09-07 18:59] LABS: Alanine Aminotransferase 22.0 U/L (7-52); Albumin Globulin Ratio 1.5 (0.9-2); Albumin Level 3.5 gm/dl (3.4-5.0); Alkaline Phosphatase 76.0 U/L (34-104); Anion Gap 5.0 (3-11); Bilirubin,Total 0.8 mg/dl (0.2-1.0); Blood Urea Nitrogen 17.0 mg/dl (6-23); Calcium 9.1 mg/dl (8.6-10.3); Carbon Dioxide 27.0 mmol/L (21-32); Chloride 105.0 mmol/L (98-107); Creatinine Clr Calc Pharmacy 131.3 ml/min; Globulin 2.4 gm/dl (2.5-4.0); Glucose 100.0 mg/dl (70-99(Fasting)); Lipase 12.0 U/L (11-82); Potassium 3.9 mmol/L (3.5-5.1); Sodium 137.0 mmol/L (136-145); Total Protein 5.9 gm/dl (6.0-8.3)
[2025-09-07 20:14] LABS: Partial Thromboplastin Time 24 Seconds (21-31)
[2025-09-07 20:19] LABS: Magnesium 2.1 mg/dl (1.7-2.4)
--- NOTE | 2025-09-07 20:24 | History & Physical Report ---
Date of Service September 07, 2025 Assessment & Plan (1) Chest pain: (2) Elevated troponin I level: (3) Heart failure with reduced ejection fraction: (4) Essential thrombocytosis: (5) BPH (benign prostatic hyperplasia): (6) Prediabetes: (7) HLD (hyperlipidemia): Plan: HPI, ROS, PE completed by Harriet To PA-C Assessment and Plan per Dr Patel. See addendum. History of Present Illness Chief Complaint: CP Primary Care Provider: Clarisse Luna DO Patient is 84-year-old male with PMH prediabetes, HLD, NSVT, HFrEF, history of loop recorder placed 07/19/2025 at [facility] by Dr. Alcantara for h/o syncope, BPH, essential thrombocytosis presented to ER with complaint of CP today. Patient states was judson venison today. States they finished up and he had sudden onset of left-sided chest pain that he reports was nonradiating. Denies any dizziness, diaphoresis, neck pain, arm pain or paresthesias, shortness of breath or palpitations. Denies nausea or vomiting. He denies history CP like this in past. Was given 324 mg aspirin and 1 dose nitro by EMS that relieved pain. Patient states in ER had "few twinges" of left chest discomfort that self resolved and denies any current CP. He reports chronic BLE edema and states [address] [facility] started him on Lasix. He denies noticing any improvement or worsening of BLE edema. He reports gets SOB with prolonged speaking but denies SOB with ambulation. Denies noted orthopnea. Denies fever/chills, diaphoresis, N/V/D/C, ESTRADA, dizziness, neck pain, cough, sore throat, rhinorrhea, abdominal pain, paresthesias, weakness, rashes, urinary symptoms. In ER initial troponin: 21. Per chart review: 10/08/2024 echo: EF: 40-45%, mild aortic regurgitation, Mild mitral regurgitation History of heart catheterization 01/19/25: Nonobstructive disease Allergies Allergy/AdvReac Type Severity Reaction Status Date / Time amoxicillin [From Augmentin] AdvReac Mild STOMACH Verified 09/07/25 20:21 PROBLEMS clavulanic acid AdvReac Mild STOMACH Verified 09/07/25 20:21 [From Augmentin] PROBLEMS Home Medications Medication Instructions Recorded Confirmed Type multivitamin 1 tab PO QAM 10/13/22 09/07/25 History metoprolol succinate 25 mg 25 mg PO QAM #30 tabs 10/10/24 09/07/25 Rx tablet,extended release 24 hr hydroxyurea 500 mg capsule 500 mg PO QAM 01/19/25 09/07/25 History aspirin 81 mg tablet,delayed 81 mg PO QAM 04/03/25 09/07/25 History release atorvastatin 40 mg tablet 40 mg PO QAM 04/03/25 09/07/25 History finasteride 5 mg tablet 5 mg PO QPM 04/03/25 09/07/25 History lisinopril 2.5 mg tablet 2.5 mg PO QAM 04/03/25 09/07/25 History loratadine 10 mg capsule 10 mg PO DAILY PRN ALLERRGY 04/03/25 09/07/25 History SYMPTOMS omega-3 fatty acids 600 mg PO QAM 04/03/25 09/07/25 History tamsulosin 0.4 mg capsule 0.8 mg PO QPM 04/03/25 09/07/25 History furosemide 20 mg tablet 20 mg PO QAM 09/07/25 09/07/25 History potassium chloride 20 mEq 10 meq PO QAM 09/07/25 09/07/25 History tablet,extended release Past Med/Surg History Problem List (Updated 09/07/25 @ 21:02 by Harriet To PA-C) Elevated troponin I level (Acute) Chest pain (Acute) Heart failure with reduced ejection fraction Word finding difficulty (Acute) Weakness (Acute) Syncope (Acute) Recurrent right inguinal hernia Encounter for pre-operative examination Hypertrophy of prostate (Chronic) Inguinal hernia (Chronic) Right leg DVT (Acute) Medical History (Updated 09/07/25 @ 21:02 by Harriet To PA-C) HLD (hyperlipidemia) Prediabetes Essential thrombocytosis Hearing deficit BPH (benign prostatic hyperplasia) Surgical History S/P debridement LEFT LEG>WOUND DEBRIDEMENT 2021 *MRSA History of lumbar surgery X 2 (NO HARDWARE) Hx of vasectomy History of colonoscopy H/O hernia repair X 5 History of tooth extraction History of cataract surgery RT/LEFT Family History Other No family history of adverse response to anesthesia Social History Smoking Status: Former smoker Tobacco Type: Cigarettes and Smokeless Tobacco (Dip or Chew) Second Hand Exposure: No; Do You Dip or Chew Tobacco: No; Hx Alcohol Use: No Hx Substance Use: No Preferred Language: Icelandic Communication Ability: Effective Communication Ability Comment: [place]>WEARS AIDS Social Services Director Required: No Beliefs That Will Affect Care: None Current Living Situation: Spouse Current Living Situation Comment: with and son Other Information That Helps Us Care for You: No Feels Safe at Home: Yes Safety Concerns: Feels Safe At This Time Assistive Devices: Glasses and Hearing Aid - Bilateral Review of Systems Review of Systems: All systems reviewed & are unremarkable except as noted in HPI & below Physical Exam Physical Exam: General: no distress, WDWN elderly male Head: normocephalic, atraumatic Eyes: PERRL, EOM's intact, conjunctiva non-injected, anicteric ENT: hard of hearing, normal inspection external ears, nose, mucous membranes moist Neck: supple, trachea midline Lungs: clear, no respiratory distress, no wheezing/rhonchi/rales CV: RRR, + murmur, 2+ pitting edema Abd: normal BS, soft, non-tender Ext: no cyanosis, no calf tenderness Neuro: A&O x 3, no focal deficits noted, normal affect Skin: warm, dry Results & Data Results & Data Vital Signs (Past 12 Hours) Vital Signs Temp Pulse Pulse Resp BP BP Pulse Ox 09/07/25 20:00 68 16 151/85 H 98 09/07/25 19:00 67 09/07/25 18:26 89 97 09/07/25 18:21 97 09/07/25 18:08 36.8 C 74 20 155/96 H 97 O2 Del Method O2 Flow Rate 09/07/25 20:00 Room Air 09/07/25 19:00 09/07/25 18:26 Room Air 09/07/25 18:21 Room Air 0 09/07/25 18:08 Room Air Laboratory Results Short CBC 09/07/25 Range/Units 18:23 WBC 4.55 L (4.8-10.8) K/ul Hgb 12.3 L (14.0-18.0) g/dL Hct 35.6 L (42.0-52.0) % Plt Count 528 H (130-400) K/uL [facility] 09/07/25 18:23 Sodium 137 Potassium 3.9 Chloride 105 Carbon Dioxide 27 BUN 17 Creatinine 0.44 L Glucose 100 H Calcium 9.1 Liver Function 09/07/25 Range/Units 18:23 Total Bilirubin 0.8 (0.2-1.0) mg/dl AST 36 (13-39) U/L ALT 22 (7-52) U/L Alkaline Phosphatase 76 (34-104) U/L Albumin 3.5 (3.4-5.0) gm/dl Diagnostic Findings Short CBC 09/07/25 Range/Units 18:23 WBC 4.55 L (4.8-10.8) K/ul Hgb 12.3 L (14.0-18.0) g/dL Hct 35.6 L (42.0-52.0) % Plt Count 528 H (130-400) K/uL [facility] 09/07/25 18:23 Sodium 137 Potassium 3.9 Chloride 105 Carbon Dioxide 27 BUN 17 Creatinine 0.44 L Glucose 100 H Calcium 9.1 Liver Function 09/07/25 Range/Units 18:23 Total Bilirubin 0.8 (0.2-1.0) mg/dl AST 36 (13-39) U/L ALT 22 (7-52) U/L Alkaline Phosphatase 76 (34-104) U/L Albumin 3.5 (3.4-5.0) gm/dl ECG Additional Comments: sinus rhythm, rate 66, first degree AV block. no ST elevation noted per my interpretation Supervising Physician Co-Signing Physician Notes IM ATTENDING : Patient seen and examined. History obtained from patient, family, and records. Concur with salient points upon review of preceding documentation by Ms. Harriet To PA-C. I take responsibility for plan of care below. FINAL ASSESSMENT AND PLAN as follows : NSTEMI History of nonocclusive CAD Chronic systolic heart failure (EF 40 to 45%, TTE 2023) Hypertension, slight elevated Hyperlipidemia statin Rx History of PSVT History PVD History of DVT status post anticoagulation Essential thrombocytosis on Hydrea History homocystinemia as per records Dementia as per records, patient mentating well Prediabetes, recent outpatient hemoglobin A1c of 6.3 Chronic lymphedema on diuretic Rx BPH stable on regimen Past tobacco abuse Admit to PCU Continue aspirin, beta-vimal and statin Rx Initiate IV heparin Follow troponin TTE, Cardiology consult re: NSTEMI N.p.o. after midnight in anticipation of ischemic workup DVT prophylaxis. IV heparin Full code Patient requesting updates providers. Ms. Barbara Johns, contact #[phone]. I spent a total of 30 minutes coordinating, documenting, and providing care for this patientexcludingtime spent by another provider/QHP. Text document was generated using [employer] voice recognition software. It may contain grammatical or spelling errors. Kindly contact undersigned for clarification of any documentation item in question.
[2025-09-07] MEDS ORDERED: PROMETHAZINE 6.25 MG/50.25 ML BAG IV PRN (21:14)
[2025-09-07] MEDS ORDERED: NITROGLYCERIN SL 0.4 MG/TAB TAB SL PRN (21:14)
[2025-09-07] MEDS ORDERED: MoRPHine SULFATE 4 MG/ML 1 ML CARP\\VIAL IV PRN (21:14)
[2025-09-07] MEDS: HEPARIN 25000 UNIT/500 ML D5W 25,000 UNITS/500 ML BAG IV SCH (22:26)
[2025-09-07] MEDS: Heparin IV Adult Wt-Based Standard *NO* INITIAL Bolus Protocol IV STA (22:42)
[2025-09-07] MEDS: TAMSULOSIN HCL 0.4 MG CAP PO SCH (23:40)
[2025-09-07] MEDS: FINASTERIDE 5 MG TAB PO SCH (23:41)
[2025-09-08] MEDS: ALBUMIN 25% 25 GM/100 ML VIAL IV ONE (00:05)
--- NOTE | 2025-09-08 00:54 | CT Scan Report ---
EXAM: CT head/brain wo con CLINICAL HISTORY: watson, heparin TECHNIQUE: Multiple axial images are obtained from the skull base to the vertex without contrast. CT scan was performed according to ALARA (as low as reasonable achievable). COMPARISON: 04/03/2025 FINDINGS: There is cerebral atrophy. No evidence of space occupying lesion, hemorrhage, edema, mass effect, midline shift, extra axial collection, or hydrocephalus is noted. Basal cisterns are symmetric and normal in size and configuration. There are scattered periventricular hypodensities as can be seen with chronic microvascular ischemic changes. The valle-white matter differentiation is preserved. Visualized paranasal sinuses and mastoid air cells are well aerated. Orbital contents are within normal limits. Bony structures are intact. IMPRESSION: 1. No evidence of acute intracranial abnormality is demonstrated. 2. Chronic microvascular ischemic changes. Stable 3. Cerebral atrophy.Stable 4. No new findings. Electronically signed by Tino Nicholas 09-08-2025 12:54 AM
[2025-09-08 07:15] LABS: Hematocrit (blood only) 34.2 % (42.0-52.0); Hemoglobin 11.8 g/dL (14.0-18.0); Immature Granulocytes # (auto) 0.01 K/uL (0.01-0.20); Immature Granulocytes % (auto) 0.3 %; Mean Corpuscular Hemoglobin 35.3 pg (25.0-34.0); Mean Corpuscular Volume 102.4 fL (80.0-100.0); Platelet Count 412 K/uL (130-400); RDW Standard Deviation 53.5 fL (36.4-46.3); Red Blood Count 3.34 M/uL (4.70-6.10); White Blood Count 3.54 K/ul (4.8-10.8)
[2025-09-08 07:37] LABS: Anion Gap 5.0 (3-11); Blood Urea Nitrogen 12.0 mg/dl (6-23); Calcium 8.9 mg/dl (8.6-10.3); Carbon Dioxide 27.0 mmol/L (21-32); Chloride 109.0 mmol/L (98-107); Cholesterol 133.0 mg/dl (0-200); Creatinine Clr Calc Pharmacy 170.0 ml/min; Glucose 118.0 mg/dl (70-99(Fasting)); HDL Cholesterol 80.0 mg/dl; Potassium 3.6 mmol/L (3.5-5.1); Sodium 141.0 mmol/L (136-145); Triglycerides 52.0 mg/dl (0-150)
[2025-09-08 07:47] LABS: ANTI-Xa, UFH(UnfractionatedHep 0.44 IU/ml (0.3-0.7)
--- NOTE | 2025-09-08 08:07 | Cardiology Consultation ---
Date of Consultation September 08, 2025 Assessment & Plan (1) Chest pain: (2) Elevated troponin I level: (3) Heart failure with reduced ejection fraction: (4) HLD (hyperlipidemia): (5) Prediabetes: Plan 84 year old male with PMHx significant for history of syncope s/p implantable loop recorder (07/19/2025), non-ischemic cardiomyopathy (LVEF 40-45% via ECHO 09/2024), chronic HFrEF, coronary artery disease, HTN, HLD, prediabetes, and essential thrombocytosis who presented to [facility] on 09/07/25 for evaluation of chest pain. Recently underwent cardiac CATH (01/19/25) at [facility] with Dr. Hall after a abnormal nuclear stress test (01/11/25). CATH revealed mild-moderate, non-obstr uctive disease with 30-40% ostial LM, <30% proximal LAD, 40-50% distal RCA and 20-30% proximal-mid RCA. Plan/Recommendations: * Remains stable and asymptomatic from a cardiac standpoint with no recurrent chest discomfort * Heart rate and blood pressure well controlled * High-sensitivity troponins x3 mildly elevated but trending down (21-22-16) * EKG upon admission with no acute ischemic changes * Discontinue IV heparin gtt * Start Imdur 15 mg daily upon discharge * Would reduce to lisinopril 2.5 mg QD and toPROL XL 12.5 mg BID upon discharge * Would resume [employer] furosemide 20 mg QAM upon discharge * Continue [employer] aspirin and atorvastatin as per current regimen Patient will need outpatient cardiology follow-up in 2-3 weeks and repeat echocardiogram to reassess systolic function at that time. Would consider GDMT optimization if systolic function remains reduced. Case discussed and coordinated with Dr. Mccarty. Please see Dr. Mccarty notes for further recommendations. I spent a total of 45 minutes coordinating, documenting, and providing care for this patient excluding time spent in the performance of separately billed services or time spent by another provider/QHP. SHARATH Hawley Department of Cardiology Supervising Physician Co-Signing Physician Notes I spent a total of 50 minutes on the date of service in preparation, delivery, and documentation of the care provided to this patient, excluding any time spent in the performance of separately billed services. I have personally performed a history and physical examination on the patient. I have reviewed the advance practitioner's documentation, and I agree with, and take responsibility for the plan of care. Patient feeling much better today. Has not had any recurrence of chest pain. He has nonobstructive coronary disease. Possible microvascular dysfunction. ACS ruled out. ECG showed no acute ischemic changes. Chest pain improved with sublingual nitroglycerin. Imdur started at low-dose. Patient advised to monitor blood pressure at home. Reduce dose of lisinopril and metoprolol. Patient is adamant about going home today. Advised patient to monitor blood pressure at home twice a day and look out for symptoms of low blood pressure. Will need follow-up in 1 to 2 weeks along with outpatient echocardiogram to reevaluate his left ventricular systolic function. History of Present Illness Reason for Consultation: Chest pain Requesting Physician: Carl Patel MD Attending Physician: Indra Gutierrez DO History of Present Illness 84 year old male who presented to [facility] on 09/07/25 for evaluation of chest pain. He was judson venison yesterday with his when he developed sudden, non- radiating left-sided chest tightness. Pain rated at 3-4 out of 10. Denies associated nausea, shortness of breath, or diaphoresis. His called EMS and transported to [facility]. Received ASA and SL nitroglycerin x1 on transport to hospital. Chest discomfort resolved in the ambulance. Denies recurrent chest heaviness, pressure or tightness since admission. Has mild dyspnea on exertion when he is cutting firewood at home, but denies exertional chest discomfort or worsening fatigue. Endorse chronic lower leg swelling over the past year. Denies orthopnea, PND, or worsening edema. Denies tachy palpitations, lightheadedness, dizziness, or recurrent syncope. Denies fever, chills, muscle aches, cough, congestion, or recent illness/infections. Compliant with medications and sodium diet restriction. cooks most of the time. Does not add salt to foods. Consumes 4 cups of coffee daily. Admits to not drinking much water throughout the day. Rarely drinks alcohol with a glass of wine during the holidays. Denies tobacco or illicit drug use. Past Medical History: 1. History of syncope (09/2024) status post implantable loop recorder at [facility] (07/19/25) with Dr. Alcantara 2. NSVT 3. Paroxysmal atrial tachycardia 4. Non-ischemic cardiomyopathy 5. Chronic HFrEF, NYHA Class II 6. Coronary artery disease status post CATH (01/2025) with mild-moderate, non- obstructive disease 7. Hypertension 8. Hyperlipidemia 9. Prediabetes 10. Essential thrombocytosis Family History: Brother - Heart disease Allergies Allergy/AdvReac Type Severity Reaction Status Date / Time amoxicillin [From Augmentin] AdvReac Mild STOMACH Verified 09/07/25 20:21 PROBLEMS clavulanic acid AdvReac Mild STOMACH Verified 09/07/25 20:21 [From Augmentin] PROBLEMS Home Medications Medication Instructions Recorded Confirmed Type multivitamin 1 tab PO QAM 10/13/22 09/07/25 History metoprolol succinate 25 mg 25 mg PO QAM #30 tabs 10/10/24 09/07/25 Rx tablet,extended release 24 hr hydroxyurea 500 mg capsule 500 mg PO QAM 01/19/25 09/07/25 History aspirin 81 mg tablet,delayed 81 mg PO QAM 04/03/25 09/07/25 History release atorvastatin 40 mg tablet 40 mg PO QAM 04/03/25 09/07/25 History finasteride 5 mg tablet 5 mg PO QPM 04/03/25 09/07/25 History lisinopril 2.5 mg tablet 2.5 mg PO QAM 04/03/25 09/07/25 History loratadine 10 mg capsule 10 mg PO DAILY PRN ALLERRGY 04/03/25 09/07/25 History SYMPTOMS omega-3 fatty acids 600 mg PO QAM 04/03/25 09/07/25 History tamsulosin 0.4 mg capsule 0.8 mg PO QPM 04/03/25 09/07/25 History furosemide 20 mg tablet 20 mg PO QAM 09/07/25 09/07/25 History potassium chloride 20 mEq 10 meq PO QAM 09/07/25 09/07/25 History tablet,extended release Patient History Medical History (Updated 09/08/25 @ 13:01 by Indra Gutierrez DO) Hypertension HLD (hyperlipidemia) Prediabetes Essential thrombocytosis Hearing deficit BPH (benign prostatic hyperplasia) Surgical History S/P debridement LEFT LEG>WOUND DEBRIDEMENT 2021 *MRSA History of lumbar surgery X 2 (NO HARDWARE) Hx of vasectomy History of colonoscopy H/O hernia repair X 5 History of tooth extraction History of cataract surgery RT/LEFT Family History Other No family history of adverse response to anesthesia Social History Smoking Status: Former smoker Tobacco Type: Cigarettes and Smokeless Tobacco (Dip or Chew) Second Hand Exposure: No; Do You Dip or Chew Tobacco: No; Hx Alcohol Use: No Hx Substance Use: No Preferred Language: Slovak Communication Ability: Effective Communication Ability Comment: [place]>WEARS AIDS Green Jobs Trainer Required: No Beliefs That Will Affect Care: None Current Living Situation: Spouse Current Living Situation Comment: with and son Other Information That Helps Us Care for You: No Feels Safe at Home: Yes Safety Concerns: Feels Safe At This Time Assistive Devices: Glasses and Hearing Aid - Bilateral Review of Systems Review of Systems: See HPI for pertinent positives. All others negative other than those noted in the HPI. CONSTITUTIONAL: No change in weight, No weakness, No fatigue, No fevers, No sweats or chills. HEENT: No visual changes, No epistaxis, No bleeding gums, No dysphagia, PULMONARY: No cough, sputum, or hemoptysis, No wheezing, No shortness of breath, and No recent change in breathing. CARDIOVASCULAR: +chest pain; dyspnea on exertion, edema. No palpitations, No s yncope, No claudication, No calf pain. GASTROINTESTINAL: No change in appetite, No abdominal pain, No change in bowel habits, No significant heartburn, No nausea, No vomiting, No diarrhea, No consti pation, No blood in stools or black tarry stools, No dysphagia. HEMATOLOGIC: No abnormal bleeding and No bruising. NEUROLOGICAL: No falls, No dizziness, No lightheadedness, Normal balance, No headaches, and No weakness. PSYCH: No sleep disturbances, No mood changes. Physical Exam Physical Exam: Vital signs within normal limits as above. General: Well developed and nourished. No acute distress. A+Ox3. HEENT: Normocephalic. Atraumatic. EOMI. Conjunctiva and sclera clear. NECK: Trachea midline. No thyromegaly. No carotid bruits. No JVD. Carotid upstrokes are brisk. Heart: Tachycardic. Regular rhythm. S1 and S2 noted. No murmur. No rubs or gallops. PMI non displaced. Lungs: No acute respiratory distress. Clear to auscultation. No wheezes.No rhonchi. No rales. Abdomen: Normal bowel sounds. Soft. Nontender. No abdominal bruits. Extremities: +1-2 BLE pitting edema. Normal capillary refill. No clubbing or cyanosis. Skin: Warm and dry. NEURO: No focal deficits. PSYCH: Appropriate affect and insight. Results & Data Vital Signs (Past 12 Hours) Vital Signs Temp Pulse Pulse Resp BP BP Pulse Ox 09/08/25 05:58 75 121/71 09/08/25 03:27 36.4 C L 77 18 103/48 L 94 09/08/25 00:08 70 154/78 H 09/07/25 23:45 70 18 160/80 H 09/07/25 23:23 62 09/07/25 23:16 72 18 170/96 H 09/07/25 22:40 51 L 164/83 H 09/07/25 22:05 36.3 C L 69 16 175/92 H 97 09/07/25 21:46 61 16 127/90 96 09/07/25 20:00 68 16 151/85 H 98 O2 Del Method 09/08/25 05:58 09/08/25 03:27 Room Air 09/08/25 00:08 09/07/25 23:45 09/07/25 23:23 09/07/25 23:16 09/07/25 22:40 09/07/25 22:05 Room Air 09/07/25 21:46 Room Air 09/07/25 20:00 Room Air Laboratory Results Cardiac Enzymes 09/07/25 09/07/25 09/08/25 Range/Units 18:23 20:27 06:57 AST 36 (13-39) U/L Troponin I High Sens 21.1 H 22.1 H 16.9 D (0-20) pg/ml Coagulation 09/07/25 Range/Units 18:23 APTT 24 (21-31) Seconds Lipids 09/08/25 Range/Units 06:57 Triglycerides 52 (0-150) mg/dl Cholesterol 133 (0-200) mg/dl HDL Cholesterol 80 mg/dl Cholesterol/HDL Ratio 1.7 (0-5) CBC 09/07/25 09/08/25 Range/Units 18:23 06:57 WBC 4.55 L 3.54 L (4.8-10.8) K/ul RBC 3.47 L 3.34 L (4.70-6.10) M/uL Hgb 12.3 L 11.8 L (14.0-18.0) g/dL Hct 35.6 L 34.2 L (42.0-52.0) % Plt Count 528 H 412 H (130-400) K/uL Neut # (Auto) 2.97 2.31 (1.40-6.50) K/uL Lymph # (Auto) 0.82 L 0.65 L (1.20-3.40) K/uL Dickson # (Auto) 0.59 0.40 (0.11-0.59) K/uL Eos # (Auto) 0.15 0.16 (0.00-0.50) K/uL Baso # (Auto) 0.01 0.01 (0.00-0.20) K/uL Comprehensive Metabolic Panel 09/07/25 09/08/25 Range/Units 18:23 06:57 Sodium 137 141 (136-145) mmol/L Potassium 3.9 3.6 (3.5-5.1) mmol/L Chloride 105 109 H (98-107) mmol/L Carbon Dioxide 27 27 (21-32) mmol/L BUN 17 12 (6-23) mg/dl Creatinine 0.44 L 0.34 L (0.6-1.4) mg/dl Glucose 100 H 118 H (70-99(Fasting)) mg/dl Calcium 9.1 8.9 (8.6-10.3) mg/dl AST 36 (13-39) U/L ALT 22 (7-52) U/L Alkaline Phosphatase 76 (34-104) U/L Total Protein 5.9 L (6.0-8.3) gm/dl Albumin 3.5 (3.4-5.0) gm/dl Intake and Output 09/07/25 09/08/25 09/08/25 22:59 06:59 14:59 Intake Total 34.2 / 34.2 166.95 / 166.95 Output Total 200 / 200 Balance -165.8 / -165.8 166.95 / 166.95 Intake: IV 34.2 / 34.2 166.95 / 166.95 Heparin 03738 Unit/500 ml D5w 0 / 0 166.95 / 166.95 25,000 units In 500 ml @ 1,350 UNITS/HR 27 mls/hr IV .[id number] AQUILINO Rx#:[id number] Output: Urine 200 / 200 Other: Other Intake Source npo # Unmeasured Voids 2 Weight 74.4 kg 74.8 kg Weight Measurement Method Standing Scale Built in [facility] Diagnostic Findings EKG 09/08/25 at 05:24:43 NSR 91 bpm QTc 474 ms EKG 09/07/25 18:14:44 NSR with 1st degree AV block 66 bpm QTc 415 ms Cardiac CATH 01/19/25 Summary of Findings Impression: Right dominant coronary anatomy with mild to moderate diffuse luminal regularities. Ostial narrowing left main 30 to 40%, distal right coronary artery AV groove portion 4050 percent nonobstructive Normal left ventricular systolic function EF 55% with subtle hypokinesis of the basilar inferior wall Normal left end-diastolic pressure ECHO 10/08/24 LVEF = 40-45% Left ventricular systolic function is mildly reduced Left ventricle is mildly dilated Right ventricle is normal in size and function Mild aortic regurgitation Chest X-Ray 09/07/25 18:25 EXAM: Portable AP chest radiograph TECHNIQUE: AP portable radiograph of the chest was obtained. INDICATION: Shortness of breath Comparison: Chest radiograph April 03, 2025. FINDINGS: LINES and TUBES: Loop recorder CARDIOVASCULAR: Cardiac silhouette is enlarged in size. Atherosclerosis of the thoracic aorta. LUNGS/PLEURA: No focal consolidation identified. Chronic interstitial lung changes. No significant pleural fluid. No discernible pneumothorax. OSSEOUS/OTHER: No displaced acute osseous process identified. IMPRESSION: Cardiac silhouette enlargement. No pulmonary edema. No focal consolidation is identified. Peribronchial cuffing that may be due to bronchiolitis. Electronically signed by Jersey Farias 09-07-2025 6:[address] 09/07/25 23:43 EXAM: CT head/brain wo con CLINICAL HISTORY: watson, heparin TECHNIQUE: Multiple axial images are obtained from the skull base to the vertex without contrast. CT scan was performed according to TEJINDER (as low as reasonable achievable). COMPARISON: 04/03/2025 FINDINGS: There is cerebral atrophy. No evidence of space occupying lesion, hemorrhage, edema, mass effect, midline shift, extra axial collection, or hydrocephalus is noted. Basal cisterns are symmetric and normal in size and configuration. There are scattered periventricular hypodensities as can be seen with chronic microvascular ischemic changes. The valle-white matter differentiation is preserved. Visualized paranasal sinuses and mastoid air cells are well aerated. Orbital contents are within normal limits. Bony structures are intact. IMPRESSION: 1. No evidence of acute intracranial abnormality is demonstrated. 2. Chronic microvascular ischemic changes. Stable 3. Cerebral atrophy.Stable 4. No new findings. Electronically signed by Tino Nicholas 09-08-2025 12:54 AM PG Care Time/CCT Total # of Minutes Spent Total Time Spent with Patient: Total time spent is greater than 50% in coordination of care (as documented) at patient's floor/unit and/or counseling patient: [place] [address] INT INP/OBS CARE 3/75MIN Patient Type New Medical Decision Making High Complexity Diagnoses Chest pain R07.9 Elevated troponin I level R79.89 Heart failure with reduced ejection fraction I50.20 HLD (hyperlipidemia) E78.5 Prediabetes R73.03 Time Spent (min) 45
--- NOTE | 2025-09-08 08:23 | Electrocardiogram Report ---
Test Reason : Blood Pressure : */* mmHG Vent. Rate : 66 BPM Atrial Rate : 66 BPM P-R Int : 212 ms QRS Dur : 82 ms QT Int : 396 ms P-R-T Axes : 41 22 52 degrees QTcB Int : 415 ms Sinus rhythm with 1st degree A-V block Otherwise normal ECG When compared with ECG of 10-Dec-2024 08:43, Premature ventricular complexes are no longer Present Confirmed by Jamie Butcher ([id number]) on 09/08/2025 8:22:33 AM Referred By: Confirmed By: Jamie Butcher
--- NOTE | 2025-09-08 08:26 | Electrocardiogram Report ---
Test Reason : Blood Pressure : */* mmHG Vent. Rate : 91 BPM Atrial Rate : 91 BPM P-R Int : 180 ms QRS Dur : 90 ms QT Int : 386 ms P-R-T Axes : 70 35 57 degrees QTcB Int : 474 ms Normal sinus rhythm Normal ECG When compared with ECG of 07-Sep-2025 18:14, (unconfirmed) CT interval has decreased QT has lengthened Confirmed by Jamie Butcher ([id number]) on 09/08/2025 8:26:10 AM Referred By: REFERRED SELF Confirmed By: Jamie Butcher
[2025-09-08] MEDS: ASPIRIN 81 MG ECTAB PO SCH (08:42)
[2025-09-08] MEDS: ATORVASTATIN 40 MG TAB PO SCH (08:42)
[2025-09-08] MEDS: MULTIVITAMIN TAB PO SCH (08:42)
[2025-09-08] MEDS: METOPROLOL SUCC 25MG EXT REL TAB PO SCH ×2 (08:42→20:33)
[2025-09-08] MEDS: HYDROXYUREA 500 MG CAP PO SCH (09:24)
[2025-09-08] MEDS: ISOSORBIDE MONO EXTENDED REL 30 MG TABCR PO SCH (10:40)
--- NOTE | 2025-09-08 13:02 | Hospitalist Progress Note ---
Date of Service September 08, 2025 Assessment & Plan (1) Stable angina: (2) Chronic heart failure with mildly reduced ejection fraction (HFmrEF, 41- 49%): (3) Coronary artery disease: (4) Prediabetes: (5) Hypertension: (6) BPH (benign prostatic hyperplasia): Plan Patient 84-year-old gentleman who presents with chest pain and minimally elevated troponin not indicative of acute coronary syndrome. Symptoms consistent with stable angina. Trial of Imdur, received 30 mg today. This afternoon patient is a little lightheaded and hypotensive. Imdur dose will be decreased to 15 mg. Other antihypertensive medication doses adjusted Discussed with cardiology and agrees with plan Heparin discontinued AISHWARYA stockings for chronic lower extremity edema Continue other outpatient medications Patient and daughter at bedside and updated Follow-up with cardiology outpatient Admission and Anticipated Discharge Date Admission Date: September 07, 2025 Subjective Patient denies any further chest pain. No shortness of breath. No reproducible chest pain. Physical Exam Physical Exam: Constitutional: Alert, sitting up in chair, no acute distress HEENT: Mucous membranes moist. Lungs: Clear to auscultation, decreased, no wheezes rales or rhonchi CV: S1-S2, regular Abdomen: Soft, nontender, nondistended Extremities: 2+ lower extremity edema Neuro: No focal deficits Psych: Cooperative, normal mood Results & Data Results & Data Vital Signs (Past 12 Hours) Vital Signs Temp Pulse Pulse Resp BP Pulse Ox O2 Del Method 09/08/25 11:10 83 09/08/25 10:41 36.6 C 98 H 17 110/65 97 Room Air 09/08/25 10:34 36.4 C L 94 H 19 102/61 96 Room Air 09/08/25 08:21 98 H 18 128/61 94 Room Air 09/08/25 08:00 Room Air 09/08/25 05:58 75 121/71 09/08/25 03:27 36.4 C L 77 18 103/48 L 94 Room Air Diagnostic Findings Reviewed imaging, laboratory and diagnostic studies. Pertinent findings as below. WBCs 3.5 Hemoglobin 0.8 Platelets of 412 Electrolytes stable Creatinine 0.34 Lipid panel reviewed Troponins reviewed:
[2025-09-08] MEDS ORDERED: TAMSULOSIN HCL 0.4 MG CAP PO SCH (21:00)
[2025-09-08] MEDS ORDERED: FINASTERIDE 5 MG TAB PO SCH (21:00)
[2025-09-09 03:29] VITALS: RESP 19
[2025-09-09 07:51] VITALS: BP 130/63; TEMP 97.7; O2SAT 94
--- NOTE | 2025-09-09 08:07 | Cardiology Progress Note ---
Date of Service September 09, 2025 Assessment & Plan (1) Chest pain: (2) Elevated troponin I level: (3) Heart failure with reduced ejection fraction: (4) HLD (hyperlipidemia): (5) Prediabetes: Plan 84 year old male with PMHx significant for history of syncope s/p implantable loop recorder (07/19/2025), non-ischemic cardiomyopathy (LVEF 40-45% via ECHO 09/2024), chronic HFrEF, coronary artery disease, HTN, HLD, prediabetes, and essential thrombocytosis who presented to [facility] on 09/07/25 for evaluation of sudden onset of chest pain while judson venison. Work-up remarkable for minimally elevated high-sensitivity troponins x3 (21-22-16). EKG with no acute ischemic changes. Symptoms felt to be secondary to chronic stable angina. Recently underwent cardiac CATH (01/19/25) at [facility] with Dr. Hall after a abnormal nuclear stress test (01/11/25). CATH revealed mild-moderate, non- obstructive disease with 30-40% ostial LM, <30% proximal LAD, 40-50% distal RCA and 20-30% proximal-mid RCA. 09/08/25: Discontinued IV heparin gtt. Initially started on Imdur 30 mg daily then dose reduced to Imdur 15 mg due to symptomatic hypotension. Antihypertensive medications adjusted with lisinopril reduced to 2.5 mg QD and toPROL reduced to 12.5 mg BID. Plan/Recommendations: * Remains stable and asymptomatic from a cardiac standpoint with no recurrent anginal symptoms. * Heart rate and blood pressure well controlled * Continue Imdur 15 mg daily * Continue lisinopril 2.5 mg QD and toPROL XL 12.5 mg BID * Continue [employer] aspirin and atorvastatin as per current regimen * Would resume [employer] furosemide 20 mg QAM upon discharge home * Recommend outpatient cardiology follow-up in 2-3 weeks and repeat ECHO to reassess left ventricular systolic function Case discussed and coordinated with Dr. Mccarty. Please see Dr. Mccarty notes for further recommendations. I spent a total of 30 minutes coordinating, documenting, and providing care for this patient excluding time spent in the performance of separately billed services or time spent by another provider/QHP. SHARATH Hawley Department of Cardiology Admission and Anticipated Discharge Date Admission Date: September 07, 2025 Subjective Seen by cardiology today for examination and follow-up. Feeling well this morning and has been ambulating around the hallway with no recurrent chest discomfort. Had positional lightheadedness and dizziness after medication adjustments yesterday, but symptoms resolved. Denies chest pressure, pain, tachy palpitations, lightheadedness, dizziness, syncope, orthopnea, PND, or worsening edema. Chart, medications, and telemetry personally reviewed. Review of Systems Review of Systems: See HPI for pertinent positives. All others negative other than those noted in the HPI. CONSTITUTIONAL: No change in weight, No weakness, No fatigue, No fevers, No sweats or chills. HEENT: No visual changes, No epistaxis, No bleeding gums, No dysphagia, PULMONARY: No cough, sputum, or hemoptysis, No wheezing, No shortness of breath, and No recent change in breathing. CARDIOVASCULAR: No chest pain, No dyspnea on exertion, No palpitations, No syncope, No claudication, No edema, No calf pain. GASTROINTESTINAL: No change in appetite, No abdominal pain, No change in bowel habits, No significant heartburn, No nausea, No vomiting, No diarrhea, No constipation, No blood in stools or black tarry stools, No dysphagia. HEMATOLOGIC: No abnormal bleeding and No bruising. NEUROLOGICAL: No falls, No dizziness, No lightheadedness, Normal balance, No headaches, and No weakness. PSYCH: No sleep disturbances, No mood changes. Physical Exam Physical Exam: Vital signs within normal limits as above. General: Well developed and nourished. No acute distress. A+Ox3. HEENT: Normocephalic. Atraumatic. EOMI. Conjunctiva and sclera clear. NECK: Trachea midline. No thyromegaly. No carotid bruits. No JVD. Carotid upstrokes are brisk. Heart: Tachycardic. Regular rhythm. S1 and S2 noted. No murmur. No rubs or gallops. PMI non displaced. Lungs: No acute respiratory distress. Clear to auscultation. No wheezes.No rhonchi. No rales. Abdomen: Normal bowel sounds. Soft. Nontender. No abdominal bruits. Extremities: +1-2 BLE pitting edema. Normal capillary refill. No clubbing or cyanosis. Skin: Warm and dry. NEURO: No focal deficits. PSYCH: Appropriate affect and insight. Results & Data Vital Signs (Past 12 Hours) Vital Signs Temp Pulse Pulse Resp BP Pulse Ox O2 Del Method 09/09/25 07:50 36.5 C 83 19 130/63 94 Room Air 09/09/25 03:27 36.8 C 82 19 114/63 95 Room Air 09/09/25 00:00 51 L 09/08/25 23:22 36.6 C 65 20 117/62 96 Room Air Laboratory Results Intake and Output 09/08/25 09/09/25 09/09/25 22:59 06:59 14:59 Intake Total 360 / 991.50 275 / 991.50 Balance 360 / 991.50 275 / 991.50 Intake: Oral 360 / 735 275 / 735 Other: # Unmeasured Voids 1 1 Weight 74.2 kg Weight Measurement Method Built in [facility] Diagnostic Findings Sinus rhythm with heart rates in 70s and occasional PVCs upon 24-hour telemetry review. PG Care Time/CCT Total # of Minutes Spent Total Time Spent with Patient: Total time spent is greater than 50% in coordination of care (as documented) at patient's floor/unit and/or counseling patient: C[place] [address] SUB INP/OBS CARE 3/50MIN Patient Type Established Medical Decision Making High Complexity Diagnoses Chest pain R07.9 Elevated troponin I level R79.89 Heart failure with reduced ejection fraction I50.20 HLD (hyperlipidemia) E78.5 Prediabetes R73.03 Time Spent (min) 30
[2025-09-09] MEDS: ISOSORBIDE MONO EXTENDED REL 30 MG TABCR PO SCH (08:31)
--- NOTE | 2025-09-09 09:51 | Discharge Summary ---
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 Initial troponin very mildly elevated. Patient was admitted to the hospital. He was placed on the monitor. There was no significant arrhythmias. Troponins were trended and sets remained flat and not indicative of any acute ischemia. EKG were performed serially and again showed no evidence of acute ischemia. Cardiology consultation was obtained. Based on the patient's symptoms felt that he may be having some stable angina. Imdur was started. His other blood pressure medications dosages were adjusted. On the morning of discharge he was up and ambulating throughout the unit. He had no lightheadedness or dizziness. Vital signs were stable. He had no recurrence of his chest discomfort. He will be discharged home to follow-up with his PCP and cardiology. was updated via phone at the time of discharge. Notes For Next Care Provider Follow-up with cardiology Medication Changes From Visit Imdur started Metoprolol dose to twice daily Admission HPI Per Admitting Provider Patient is 84-year-old male with PMH prediabetes, HLD, NSVT, HFrEF, history of loop recorder placed 07/19/2025 at [facility] by Dr. Alcantara for h/o syncope, BPH, essential thrombocytosis presented to ER with complaint of CP today. Patient states was judson venison today. States they finished up and he had sudden onset of left-sided chest pain that he reports was nonradiating. Denies any dizziness, diaphoresis, neck pain, arm pain or paresthesias, shortness of breath or palpitations. Denies nausea or vomiting. He denies history CP like this in past. Was given 324 mg aspirin and 1 dose nitro by EMS that relieved pain. Patient states in ER had "few twinges" of left chest discomfort that self resolved and denies any current CP. He reports chronic BLE edema and states [address] [facility] started him on Lasix. He denies noticing any improvement or worsening of BLE edema. He reports gets SOB with prolonged speaking but denies SOB with ambulation. Denies noted orthopnea. Denies fever/chills, diaphoresis, N/V/D/C, ESTRADA, dizziness, neck pain, cough, sore throat, rhinorrhea, abdominal pain, paresthesias, weakness, rashes, urinary symptoms. In ER initial troponin: 21. Per chart review: 10/08/2024 echo: EF: 40-45%, mild aortic regurgitation, Mild mitral regurgitation History of heart catheterization 01/19/25: Nonobstructive disease Admission Exam Per Admitting Provider See H&P Discharge Exam Constitutional: Alert, nontoxic HEENT: Mucous membranes moist. Lungs: Clear to auscultation, decreased, no wheezes rales or rhonchi CV: S1-S2, regular Abdomen: Soft, nontender, nondistended Extremities: 2+ pitting edema, chronic Neuro: No focal deficits Psych: Cooperative, normal mood Updated Medication List Medication Instructions Recorded Confirmed Type multivitamin 1 tab PO QAM 10/13/22 09/07/25 History hydroxyurea 500 mg capsule 500 mg PO QAM 01/19/25 09/07/25 History aspirin 81 mg tablet,delayed 81 mg PO QAM 04/03/25 09/07/25 History release atorvastatin 40 mg tablet 40 mg PO QAM 04/03/25 09/07/25 History finasteride 5 mg tablet 5 mg PO QPM 04/03/25 09/07/25 History lisinopril 2.5 mg tablet 2.5 mg PO QAM 04/03/25 09/07/25 History loratadine 10 mg capsule 10 mg PO DAILY PRN ALLERRGY 04/03/25 09/07/25 History SYMPTOMS omega-3 fatty acids 600 mg PO QAM 04/03/25 09/07/25 History tamsulosin 0.4 mg capsule 0.8 mg PO QPM 04/03/25 09/07/25 History furosemide 20 mg tablet 20 mg PO QAM 09/07/25 09/07/25 History potassium chloride 20 mEq 10 meq PO QAM 09/07/25 09/07/25 History tablet,extended release isosorbide mononitrate 30 mg 15 mg (1/2 x 30 mg) PO QAM #30 tabs 09/09/25 Rx tablet,extended release 24 hr metoprolol succinate 25 mg 12.5 mg (1/2 x 25 mg) PO BID #30 09/09/25 Rx tablet,extended release 24 hr tabs nitroglycerin 0.4 mg sublingual 0.4 mg sublingual Q5M PRN chest 09/09/25 Rx tablet (Nitrostat) pain #14 tabs Hospital Stay Data Consultations 09/07/25 19:57 ED Decision to Admit Stat 09/07/25 22:05 Consult Cardiology Routine Diagnostic Imagining Performed 09/07/25 23:43 CT head/brain wo con Stat Reviewed imaging, laboratory and diagnostic studies. Pertinent findings as below. Hemoglobin 11.8 Platelets of 412, baseline Electrolytes stable Creatinine 0.34 Troponin 21-22-16 Lipid panel favorable Pending Results Patient Have Any Pending Studies at Discharge: No Discharge Instructions Given to Patient (Per Discharging Provider) Follow-up with your PCP Follow-up with cardiology for ongoing cardiac care as coordinated through their office in 2 to 3 weeks Wear compression stockings Total Time Total Time Spent Total Time Spent (In Minutes): 32
[2025-09-09 10:36] VITALS: PULSE 66
== END 2025-09-09 11:09 | disposition home or self-care (01) | DRG 303 ==
LOC: ED 18:08 → SUATTDRO 21:10 → 2S 21:10